=== PATIENT | female | born 1940 | race Two or more races ===

== ENCOUNTER 2019-12-06 10:54 | Inpatient (IN) | payer MEDICARE ==
[2019-12-06] VITALS (19 sets, daily range): BP systolic 93–155; BP diastolic 44–64
[~2019-12-06] VITALS: Ht 152.4 cm; Wt 73.5 kg
[2019-12-06 11:26] LABS: Basophils # (auto) 0.1 10 ^3/uL (0-0.2); Basophils % (auto) 0.5 % (0.0-2.0); Eosinophils # (auto) 0 10 ^3/uL (0-0.8); Hematocrit 33.8 % (36.0-46.0); Hemoglobin 10.9 g/dL (12.2-16.2); Lymphocytes # (auto) 0.7 10 ^3/uL (0.4-5.4); Lymphocytes % (auto) 4.8 % (10.0-50.0); Mean Corpuscular Hgb Conc. 32.2 g/dL (32.0-36.0); Monocytes # (auto) 0.9 10 ^3/uL (0-1.3); Neutrophils # (auto) 12.7 10 ^3/uL (1.6-8.6); Neutrophils % (auto) 88.7 % (37.0-80.0); Nucleated Red Blood Cells % 0.1 %; Platelet Count (auto) 388 10^3/uL (140-450); Red Blood Cells 3.75 10^6/uL (4.0-5.20); Red Cell Distribution Width 15.8 % (11.8-14.3); White Blood Cell 14.3 10^3/uL (4.4-10.8)
[2019-12-06] MEDS ORDERED: SODIUM CHLORIDE 0.9% 1,000 ML IVB ONE (11:38)
[2019-12-06 11:42] LABS: INR 1.15 (0.9-1.15); Partial Thromboplastin Time 26.7 sec (23.64-32.05)
[2019-12-06 11:43] LABS: Albumin 2.7 g/dL (3.4-5.0); Anion Gap 10 (5-15); Blood Urea Nitrogen 24 mg/dL (7-18); Calcium 9.2 mg/dL (8.5-10.1); Carbon Dioxide 21 mmol/L (21-32); Chloride 109 mmol/L (98-107); Glucose 118 mg/dL (74-106); Magnesium 2.3 mg/dL (1.6-2.6); Potassium 3.8 mmol/L (3.5-5.1); Sodium 140 mmol/L (136-145)
[2019-12-06 11:47] LABS: Lactic Acid w/Reflex 2.8 mmol/L (0.4-2.0)
[2019-12-06 11:48] LABS: Alanine Aminotransferase 25 U/L (13-56); Alkaline Phosphatase 155 U/L (45-117); Aspartate Aminotransferase 70 U/L (15-37); BUN/Creatinine Ratio 25.8; Bilirubin, Total 0.7 mg/dL (0.2-1.0); GFR African American 75 mL/min; GFR Non-African American 62 mL/min; Total Protein 7.2 g/dL (6.4-8.2)
[2019-12-06] MEDS ORDERED: cefTRIAXone 1GM/50ML D5W 50 ML IV ONE (12:15)
[2019-12-06] MEDS ORDERED: VANCOMYCIN PER PHARMACY 0 MG IV SCH (14:45)
[2019-12-06] MEDS ORDERED: ACETAMINOPHEN 500 MG TAB PO PRN ×2 (14:45→15:15)
[2019-12-06] MEDS ORDERED: NITROGLYCERIN 0.4 MG SL TAB SL PRN (14:45)
[2019-12-06 15:09] LABS: Magnesium 2.2 mg/dL (1.6-2.6)
[2019-12-06] MEDS ORDERED: MORPHINE SULF INJ 2 MG/ML SYRINGE 1ML IV PRN (15:15)
[2019-12-06] MEDS ORDERED: MORPHINE SULF INJ 2 MG/ML SYRINGE 1ML IM ONE (15:15)
[2019-12-06] MEDS ORDERED: ZINC SULFATE 220mg CAP or TAB PO SCH (15:17)
[2019-12-06] MEDS: ASCORBIC ACID 1,000 MG TAB PO SCH (15:42)
[2019-12-06] MEDS: CHOLECALCIFEROL (VITD3) 1,000UNIT=25mCg TAB PO SCH (15:42)
[2019-12-06] MEDS: HYDROcodone-ACET 5/325MG TAB PO PRN ×2 (15:44→21:45)
[2019-12-06] MEDS: ENOXAPARIN SOD 40 MG/0.4 ML SYRINGE SC SCH (15:44)
[2019-12-06] MEDS: ONDANSETRON HCL 4 MG/2 ML VIAL IV PRN (15:44)
[2019-12-06] MEDS ORDERED: MORPHINE SULF INJ 2 MG/ML SYRINGE 1ML IV ONE (15:45)
[2019-12-06] MEDS ORDERED: VANCOMYCIN 1GM/250ML 250 ML IV SCH (16:00)
[2019-12-06] MEDS: VANCOMYCIN 1GM/250ML 250 ML IV SCH (16:33)
[2019-12-06] MEDS ORDERED: FUROSEMIDE 40 MG/4 ML VIAL IV ONE (17:15)
[2019-12-06] MEDS: PIPERACILLIN-TAZOB 3.375GM 100 ML IV SCH ×2 (18:25→23:56)
[2019-12-06 18:49] LABS: Urine Bacteria NONE SEEN /hpf (None Seen); Urine Blood Negative /uL (Negative); Urine Hyaline Cast MOD /lpf (0 - 2); Urine Mucus MODERATE (None Seen); Urine Specific Gravity 1.018 (1.001-1.035); Urine WBC 37 /hpf (0 - 5)
--- NOTE | 2019-12-06 20:00 | NUR ---
Received patient via gurney; RT at bedside to place patient on Hi Jean-Claude 40 LPM, fio2 90%; pulse ox 93-94% with SOB noticed at rest. Patient is otherwise hemodynamically stable and A/O x 4 with no complaints of pain. Dr. Caceres at bedside to evaluate, new orders placed. Patient refusing ceballos catheter placement at this time; this RN explained to patient that due to her high oxygen requirements and SOB, we will not be getting her OOB; she verbalized understanding. Call light within reach, continue care.
--- NOTE | 2019-12-06 21:22 | NUR ---
Patient mouth breathing, pulse ox reading 85-87%; encouraged deep breaths through nose and pulse ox increased to 88%. Increased fio2 to 100%, RT aware.
[2019-12-06] MEDS ORDERED: ALBUTEROL SULF 2.5 MG/0.5ML(0.5%) NEB SOLN NEB SCH (22:00)
[2019-12-06] MEDS ORDERED: ALBUTEROL SULF HFA 90MCG INH 200DOSE IN SCH ×2 (22:00)
[2019-12-06] MEDS ORDERED: methylPREDNISolone SOD SUCC 40 MG/ML VL IV SCH (22:00)
[2019-12-06] MEDS: IPRATROPIUM BROM 0.5 MG/2.5ML INH SOL NEB SCH (22:04)
[2019-12-06] MEDS: ALBUTEROL SULF 2.5 MG/0.5ML(0.5%) NEB SOLN NEB SCH (22:07)
[2019-12-06] MEDS ORDERED: IBUP600T27 PO (22:26)
[2019-12-06] MEDS ORDERED: HYDR-4833 PO (22:26)
--- NOTE | 2019-12-06 22:56 | NUR ---
Spoke with lab, states they will place order for "legionella and strep pneumo antigen in urine" per Dr. Caceres since this RN unable to do it from my end.
[2019-12-07] VITALS (47 sets, daily range): BP systolic 78–119; BP diastolic 42–59
--- NOTE | 2019-12-07 00:44 | NUR ---
Patient requesting bedpan to void but states "nothing will come out". Inserted 16F Currie catheter using sterile technique per orders and upon patient request, 1750 ml light sabine urine drained.
[2019-12-07] MEDS: ALBUTEROL SULF 2.5 MG/0.5ML(0.5%) NEB SOLN NEB SCH ×6 (02:09→22:19)
[2019-12-07] MEDS: IPRATROPIUM BROM 0.5 MG/2.5ML INH SOL NEB SCH ×6 (02:10→22:19)
[2019-12-07 03:53] LABS: Basophils # (auto) 0.1 10 ^3/uL (0-0.2); Basophils % (auto) 0.4 % (0.0-2.0); Eosinophils # (auto) 0.1 10 ^3/uL (0-0.8); Eosinophils % (auto) 0.8 % (0.0-7.0); Hematocrit 29.1 % (36.0-46.0); Hemoglobin 9.5 g/dL (12.2-16.2); Lymphocytes # (auto) 1.1 10 ^3/uL (0.4-5.4); Lymphocytes % (auto) 7.7 % (10.0-50.0); Mean Corpuscular Hemoglobin 29.7 pg (28.0-32.0); Mean Corpuscular Hgb Conc. 32.8 g/dL (32.0-36.0); Mean Corpuscular Volume 90.6 fL (80.0-100.0); Monocytes % (auto) 7.2 % (0.0-12.0); Neutrophils # (auto) 11.5 10 ^3/uL (1.6-8.6); Neutrophils % (auto) 83.9 % (37.0-80.0); Platelet Count (auto) 325 10^3/uL (140-450); Red Blood Cells 3.21 10^6/uL (4.0-5.20); Red Cell Distribution Width 15.4 % (11.8-14.3); White Blood Cell 13.8 10^3/uL (4.4-10.8)
[2019-12-07 04:11] LABS: Albumin 2.2 g/dL (3.4-5.0); Calcium 8.2 mg/dL (8.5-10.1); Potassium 3.7 mmol/L (3.5-5.1)
[2019-12-07 04:14] LABS: BUN/Creatinine Ratio 22.5; Bilirubin, Total 0.6 mg/dL (0.2-1.0); Total Protein 6.1 g/dL (6.4-8.2)
[2019-12-07] MEDS: PIPERACILLIN-TAZOB 3.375GM 100 ML IV SCH ×3 (05:57→18:09)
--- NOTE | 2019-12-07 06:04 | NUR ---
Patient continues to rest on Hi Flow NC at 40 LPM, 95% Fio2; pulse ox 96-97%.
--- NOTE | 2019-12-07 07:45 | NUR ---
INITIAL CONTACT Report received from Danielle WU, care assumed. Patient is alert and oriented. Patient able to reposition self in bed with minimal assistance. Patient denies chest pain or dizziness at this time. Afebrile. Pulses palpable radial and pedal bilaterally. No edema present. Heart rate 90's sinus rhythm. Lungs clear but diminished anteriorly, on high flow nasal cannula 40 LPM at 85%FIO2. Denies shortness of breath, but does breath shallow. SOB present with any exertion. Currie catheter present, patent, and secured below bladder. Skin intact. Non-slip socks placed on patient. Patient instructed to call for assistance, pt verbalized understanding. Bed locked in lowest position, call light within reach. Will continue to monitor.
[2019-12-07] MEDS: HYDROcodone-ACET 5/325MG TAB PO PRN ×3 (08:10→20:48)
--- NOTE | 2019-12-07 08:10 | NUR ---
PAIN Patient c/o left lower back pain 10/22. Patient suffers from chronic back pain/arthritis. PRN pain medication given.
--- NOTE | 2019-12-07 08:45 | NUR ---
FAMILY Spoke with patient son Patrice on the phone. Updated on status and plan of care.
[2019-12-07] MEDS: ASCORBIC ACID 1,000 MG TAB PO SCH (09:46)
[2019-12-07] MEDS: CHOLECALCIFEROL (VITD3) 1,000UNIT=25mCg TAB PO SCH (09:46)
[2019-12-07] MEDS: ENOXAPARIN SOD 40 MG/0.4 ML SYRINGE SC SCH (09:46)
--- NOTE | 2019-12-07 12:00 | NUR ---
MD VISIT at bedside assessing patient. MD reviewing labs and imagining. Orders received.
[2019-12-07] MEDS ORDERED: FUROSEMIDE 20 MG/2 ML VIAL IV ONE (12:15)
--- NOTE | 2019-12-07 13:20 | NUR ---
DESATURATION Patient c/o lower back pain. Pain medication not due at this time. Patient repositioned in bed. Oxygen saturation 80%. New pulse ox placed, RT notified. RT increased FIo2 95%. Oxygen saturation 91%. Patient does not have increase in work of breathing. Will continue to monitor. Breathing treatment due soon. RT to return to bedside.
--- NOTE | 2019-12-07 13:53 | NUR ---
MD VISIT at bedside. reviewing medical chart.
--- NOTE | 2019-12-07 14:27 | NUR ---
ECHO special effects technician at bedside
--- NOTE | 2019-12-07 14:37 | NUR ---
PAIN Patient c/o left lower back pain 11/21. Patient suffers from chronic back pain/arthritis. PRN pain medication given.
[2019-12-07] MEDS: VANCOMYCIN 1GM/250ML 250 ML IV SCH (16:00)
--- NOTE | 2019-12-07 16:53 | NUR ---
CARES Patient positioned on edge of bed, dangling legs. Patient performed self care. Partial linen change complete as well as repositioning in bed. Patient tolerated activity fair. No desaturation noted during activity. Bed locked in lowest position, call light within reach.
--- NOTE | 2019-12-07 18:12 | NUR ---
FAMILY Spoke with patient son Patrice on the phone. Updated on status and plan of care. Son speaking with patient on the phone.
--- NOTE | 2019-12-07 18:13 | NUR ---
Respiratory note: RECEIVED PT ON HFNC UNIT. UNIT CONNECTED TO RED OUTLET AND O2 SOURCE. ALARMS ARE SET AND AUDIBLE AMBU BAG AND MASK AT BEDSIDE. BS ARE DIMINISHED CLEAR T/O. PT IS NOTED TO GET INCREASED WOB WHEN HOLDING A CONVERSATION. NO CHANGES MADE AT THIS TIME. MED NEB TX GIVEN VIA MASK. PT TOLERATED WELL AND WITHOUT ADVERSE REACTION NOTED. WILL CONTINUE TO MONITOR. RT NAME AND PAGER ASSIGNMENT WRITTEN ON PTS ROOM BOARD.
--- NOTE | 2019-12-07 19:02 | NUR ---
REPORT Report given to Brigette WU care endorsed.
[2019-12-07] MEDS: MORPHINE SULF INJ 2 MG/ML SYRINGE 1ML IV PRN (19:49)
[2019-12-08] VITALS (62 sets, daily range): BP systolic 90–155; BP diastolic 41–91
[2019-12-08] MEDS: PIPERACILLIN-TAZOB 3.375GM 100 ML IV SCH ×4 (00:18→21:34)
--- NOTE | 2019-12-08 01:50 | NUR ---
Respiratory note: ABG DRAWN MD Pearl SALCEDO AWARE. PT DOES NOT WANT INTUBATION AT THIS TIME. WILL CONTINUE TO MONITOR.
[2019-12-08] MEDS: ALBUTEROL SULF 2.5 MG/0.5ML(0.5%) NEB SOLN NEB SCH ×6 (02:26→22:32)
[2019-12-08] MEDS: IPRATROPIUM BROM 0.5 MG/2.5ML INH SOL NEB SCH ×6 (02:26→22:33)
--- NOTE | 2019-12-08 02:26 | NUR ---
Respiratory note: AT BEDSIDE FOR ROUTINE HFNC CHECK. MED NEB TX GIVEN INLINE VIA AEROGEN NO ADVERSE REACTION NOTED. PT APPEARS COMFORTABLE. BS ARE DIMINISHED CLEAR T/O .
[2019-12-08 04:25] LABS: Basophils # (auto) 0.1 10 ^3/uL (0-0.2); Basophils % (auto) 0.4 % (0.0-2.0); Eosinophils # (auto) 0.3 10 ^3/uL (0-0.8); Eosinophils % (auto) 2.8 % (0.0-7.0); Hematocrit 29.1 % (36.0-46.0); Hemoglobin 9.8 g/dL (12.2-16.2); Lymphocytes # (auto) 0.8 10 ^3/uL (0.4-5.4); Lymphocytes % (auto) 6.6 % (10.0-50.0); Mean Corpuscular Hgb Conc. 33.5 g/dL (32.0-36.0); Mean Corpuscular Volume 89.5 fL (80.0-100.0); Monocytes # (auto) 0.8 10 ^3/uL (0-1.3); Monocytes % (auto) 6.7 % (0.0-12.0); Neutrophils % (auto) 83.5 % (37.0-80.0); Platelet Count (auto) 344 10^3/uL (140-450); Red Blood Cells 3.26 10^6/uL (4.0-5.20); Red Cell Distribution Width 15.5 % (11.8-14.3); White Blood Cell 11.9 10^3/uL (4.4-10.8)
[2019-12-08 05:01] LABS: Calcium 8.3 mg/dL (8.5-10.1); Potassium 3.2 mmol/L (3.5-5.1)
[2019-12-08 05:04] LABS: BUN/Creatinine Ratio 28.6
[2019-12-08] MEDS ORDERED: POTASSIUM CHL 20 Meq TABLET PO ONE ×2 (06:00→12:00)
--- NOTE | 2019-12-08 07:15 | NUR ---
Assumed care of patient - after receiving report from Jonh WU.
--- NOTE | 2019-12-08 07:50 | NUR ---
Patient refusing po potassium - MD states IV can be ordered - placed IV order.
[2019-12-08] MEDS: ENOXAPARIN SOD 40 MG/0.4 ML SYRINGE SC SCH (08:04)
[2019-12-08] MEDS: HYDROcodone-ACET 5/325MG TAB PO PRN (08:04)
[2019-12-08] MEDS: POTASSIUM CHL 20MEQ/100ML 100 ML IV SCH ×2 (08:08→10:18)
--- NOTE | 2019-12-08 08:30 | NUR ---
Respiratory: See respiratory assessment - patient de-sats with minimal exertion from 94% to 87%. All ADL's spaced apart to preserve O2 levels.
--- NOTE | 2019-12-08 09:35 | NUR ---
Patient's son phones - given update on patient's condition - verbalized understanding.
[2019-12-08] MEDS ORDERED: FUROSEMIDE 20 MG/2 ML VIAL IV ONE (12:00)
[2019-12-08] MEDS ORDERED: AZITHROMYCIN 500MG/ 250ML 250 ML IV ONE (12:00)
[2019-12-08] MEDS ORDERED: PANTOPRAZOLE 40 MG TAB PO ONE (12:00)
--- NOTE | 2019-12-08 12:00 | NUR ---
Dr Gaitan visits and examines patient - orders received.
[2019-12-08] MEDS ORDERED: POTASSIUM EFFERVESENT TAB 25 MEQ PO ONE (13:00)
[2019-12-08] MEDS: Ensure HIGH Protein Chocolate 8oz Bottle PO SCH ×2 (13:34→16:43)
[2019-12-08] MEDS ORDERED: SUCCINYLCHOLINE CHLORIDE 20 MG/ML 10ML VIAL IV ONE (14:33)
[2019-12-08] MEDS ORDERED: ROCURONIUM 10MG/ML 10ML VIAL IV ONE ×2 (14:33→17:03)
--- NOTE | 2019-12-08 14:35 | NUR ---
Dr Rowe visits and examines patient - orders received to intubate patient.
[2019-12-08] MEDS ORDERED: ETOMIDATE (2MG/ML) 20ML VIAL IV ONE (14:53)
--- NOTE | 2019-12-08 15:00 | NUR ---
Patient informed per Dr Rowe of need for intubation - patient agreeable but requests to speak with her son - commercial lines underwriter gave patient portable phone - patient able to speak to son. Environment Artist and Dr Rowe spoke to son - explained need for intubation - son verbalizes understanding. Environment Artist obtained consent for insertion of central intravenous line placement from patient.
[2019-12-08] MEDS: PROPOFOL 100 ML IV SCH ×2 (15:30→23:22)
[2019-12-08] MEDS: MIDAZOLAM DRIP 50 mg/50mL 50 ML IV SCH ×2 (15:30→21:36)
[2019-12-08] MEDS: fentaNYL Drip 2500mCg/250mlNS 250 ML IV SCH (16:00)
--- NOTE | 2019-12-08 16:15 | NUR ---
Patient intubated per Dr Rowe at bedside with size 8.0 ETT - 24 @ lip - see assessment for vent settings. Diprivan and Versed gtts. started. Top Installer and Dr Rowe spoke to patient's son re: intubation and bronchoscopy scheduled for tomorrow - consent obtained.
[2019-12-08] MEDS ORDERED: POTASSIUM CHL 20MEQ/100ML 100 ML IV ONE (16:45)
--- NOTE | 2019-12-08 16:45 | NUR ---
Spoke to Treva in OR.- scheduled bronchoscopy for tomorrow @ [id number]
--- NOTE | 2019-12-08 17:00 | NUR ---
Patient reaching for ETT - bilat hand mitts applied to patient and sedation adjusted - see IV spread sheet.
[2019-12-08] MEDS: VANCOMYCIN 1GM/250ML 250 ML IV SCH (19:00)
--- NOTE | 2019-12-08 20:00 | NUR ---
OPENING Patient is sedated and ventilated, sp02 100%, no sign of sob, respiratory distress or agitation, pt resting comfortably. Mittens on bilaterally. Currie draining down the gravity, light yellow urine. BP in low 100's, will titrate propofol and fentanyl according to protocol. Bed in the lowers position, side rail are up x4, bed alarm is on, pt is within the view from the nursing station. Skin is intact with and warm to touch, Optifoam applied to sacral area as preventative measure. Pt is on respiratory/droplet precaution, r/o covid 19. Will monitor pt every 15 min and as needed. See iv spreadsheet for drips and interventions for full assessment.
[2019-12-09] VITALS (106 sets, daily range): BP systolic 87–126; BP diastolic 44–67
--- NOTE | 2019-12-09 00:47 | NUR ---
REMOVED JEWELRY OFF PT FOR TOMORROWS PROCEDURE Removed two rings and two earrings and placed them into biohazard bag with patient's label. Patients mouth is free of dentures. Found one denture in wash basin, placed it into the biohazard bag with pt's label.
[2019-12-09] MEDS: ALBUTEROL SULF 2.5 MG/0.5ML(0.5%) NEB SOLN NEB SCH ×6 (02:23→22:21)
[2019-12-09] MEDS: IPRATROPIUM BROM 0.5 MG/2.5ML INH SOL NEB SCH ×6 (02:23→22:21)
[2019-12-09 04:34] LABS: Basophils # (auto) 0 10 ^3/uL (0-0.2); Basophils % (auto) 0.4 % (0.0-2.0); Eosinophils # (auto) 0.3 10 ^3/uL (0-0.8); Eosinophils % (auto) 2.6 % (0.0-7.0); Hematocrit 27.8 % (36.0-46.0); Hemoglobin 9.2 g/dL (12.2-16.2); Lymphocytes # (auto) 0.8 10 ^3/uL (0.4-5.4); Lymphocytes % (auto) 6.9 % (10.0-50.0); Mean Corpuscular Hemoglobin 29.7 pg (28.0-32.0); Mean Corpuscular Hgb Conc. 33.3 g/dL (32.0-36.0); Mean Corpuscular Volume 89.3 fL (80.0-100.0); Monocytes # (auto) 0.6 10 ^3/uL (0-1.3); Monocytes % (auto) 5.4 % (0.0-12.0); Neutrophils # (auto) 9.6 10 ^3/uL (1.6-8.6); Neutrophils % (auto) 84.7 % (37.0-80.0); Nucleated Red Blood Cells % 0.1 %; Platelet Count (auto) 332 10^3/uL (140-450); Red Blood Cells 3.11 10^6/uL (4.0-5.20); Red Cell Distribution Width 15.3 % (11.8-14.3); White Blood Cell 11.4 10^3/uL (4.4-10.8)
[2019-12-09 04:48] LABS: BUN/Creatinine Ratio 28.3; Calcium 8.2 mg/dL (8.5-10.1)
--- NOTE | 2019-12-09 05:32 | NUR ---
Paged hospitalist regarding low K (3.0)
[2019-12-09] MEDS: PIPERACILLIN-TAZOB 3.375GM 100 ML IV SCH ×3 (05:34→21:31)
[2019-12-09] MEDS: MIDAZOLAM DRIP 50 mg/50mL 50 ML IV SCH (05:34)
--- NOTE | 2019-12-09 06:46 | NUR ---
HOSPITALIST RETURNED CALL RECEIVED NEW ORDER FOR LOW POTASSIUM
[2019-12-09] MEDS ORDERED: POTASSIUM CHL 20MEQ/100ML 100 ML IV ONE ×3 (07:46→12:03)
[2019-12-09] MEDS: PANTOPRAZOLE 40 MG/10 ML VIAL INJ IV SCH (07:57)
[2019-12-09] MEDS: AZITHROMYCIN 500MG/ 250ML 250 ML IV SCH (07:58)
[2019-12-09] MEDS ORDERED: BENZOCAINE (DENTAL) 20 % SPRAY 60ML MT ONE (09:01)
[2019-12-09] MEDS ORDERED: LIDOCAINE 2%HCL (LOCAL ANESTH.) INJ 20ML MDV ONE (09:01)
[2019-12-09] MEDS ORDERED: SODIUM CHLORIDE LOCK 0 ML ONE (09:01)
[2019-12-09] MEDS ORDERED: EPINEPHrine HCL 1 MG/1 ML AMP ONE (09:02)
[2019-12-09] MEDS ORDERED: LIDOCAINE HCL 2% TOP JELLY 5ML TOP ONE (09:02)
[2019-12-09] MEDS ORDERED: MIDAZOLAM HCL 5 MG/ML-1ML VIAL ONE (09:03)
[2019-12-09] MEDS ORDERED: fentaNYL CITRATE 100 MCG/2 ML VL ONE (09:03)
--- NOTE | 2019-12-09 09:30 | NUR ---
Gas Operations Analyst phoned patient's son - obtained consent for sedation for bronchoscopy today.
[2019-12-09] MEDS ORDERED: PANTOPRAZOLE 40 MG TAB PO SCH (10:00)
[2019-12-09] MEDS: ENOXAPARIN SOD 40 MG/0.4 ML SYRINGE SC SCH (10:00)
--- NOTE | 2019-12-09 12:22 | NUR ---
Nutrition Assessment Notes please see attached link for complete assessment Est Energy needs ABW 57 [id number] kcals (20-23 kcal/kgBW), Est Protein needs: 57-68 gms/day (1.0-1.2 gm/kgBW r/t severe hypoalb). Will continue to monitor and reassess prn. Addendum: 12/09/19 at [address] Amended: Links added.
[2019-12-09] MEDS: PROPOFOL 100 ML IV SCH (12:24)
[2019-12-09 12:36] LABS: INR 1.29 (0.9-1.15); Partial Thromboplastin Time 31.9 sec (23.64-32.05)
--- NOTE | 2019-12-09 13:20 | NUR ---
Dr Herron visits and examines patient - orders received.
[2019-12-09] MEDS: POTASSIUM CHL 20MEQ/100ML 100 ML IV SCH ×2 (14:15→16:15)
[2019-12-09] MEDS ORDERED: NOREPINEPHRINE 8 MG/250ML KIT 250 ML IV ONE (15:21)
[2019-12-09] MEDS: NOREPINEPHRINE 8 MG/250ML KIT 250 ML IV SCH (15:33)
--- NOTE | 2019-12-09 16:32 | NUR ---
assessment Patient is a 79 year old female who is on a vent. Per patients conner Ibrahim prior to admission patient lived home with him and functioned with assistance. patients PCP is Dr Gutiérrez. Patient has no DME. Per Patrice patient was having shortness of breath and he drove her to ER and patient was admitted. I informed Patrice patient will be evaluated for DME and oxygen needs after extubation and prior to discharge. Patrice verbalized understanding. Addendum: 12/09/19 at 1634 by Emmy MAC Amended: Links added.
[2019-12-09] MEDS: fentaNYL Drip 2500mCg/250mlNS 250 ML IV SCH (17:11)
--- NOTE | 2019-12-09 17:17 | NUR ---
Dr Rowe notified of negative Covid result - states to re-schedule bronchoscopy for AM-switch house operator paged.
--- NOTE | 2019-12-09 17:23 | NUR ---
Maggie Ore Buyer notified of Dr Rowe's request for bronchoscopy at 1000 12/09 - will add to schedule.
[2019-12-09] MEDS ORDERED: VANCOMYCIN 1GM/250ML 250 ML IV SCH (18:00)
--- NOTE | 2019-12-09 18:00 | NUR ---
WOUND CARE NOTE: Wound care in to see patient due intubation status, putting patient to high risk for skin breakdown. Patient is 79 years old female with admitting diagnosis of Acute Renal failure, Recurrent Falls. Patient is resting in ICU bed in Rm. 108. Patient is intubated, sedated and mechanically ventilated. Patient appears to be in no pain using Pat Bellamy Faces Pain Scale. Skin assessment done with the assistance of patient's nurse, BRYCE Lopez. No open wound other than intact circular ecchymosis to patient's Rt and Lt forearm, area is clean and dry, left open to air. No pressure injury noted. Staff initiated skin protection measures with BID/PRN cleaning and application of Barrier to sacral, buttocks with protective Opti foam sacral dressing to sacrum. Patient tolerated well, repositioned for comfort facing her Rt side, redistributed pressure points with pillows. BRYCE Lopez at bedside. RECOMMENDATION: Nursing to continue with BID/PRN cleaning and application of Barrier cream to sacral, buttocks as preventative, frequent turning and repositioning schedule as condition permits, redistribute pressure points with pillows, elevate heels on pillows, continue monitoring by wound care while patient is mechanically ventilated.
[2019-12-09] MEDS: VANCOMYCIN 1GM/250ML 250 ML IV SCH (18:15)
--- NOTE | 2019-12-09 19:00 | NUR ---
Opening shift note: Primary RN received report on patient. Pt intubated, ETT 8.0/ 24cm@LL, Vent settings: AC 18, TV 450, FIO2 40%, PEEP 12 O2 SAT 95%, bilateral lung sounds clear and diminished. Central line Right IJ triple lumen, infusing Propofol @ 10, Fentanyl @ 50, Versed @ 6 and Levo @ 2. OG tube clamped and checked. Currie catheter draining via gravity with yellow urine. Safety precautions in place. Will continue to monitor.
[2019-12-09] MEDS: Jevity 1.2 Cal/Fiber 1 Liter GT SCH (20:00)
--- NOTE | 2019-12-09 20:00 | NUR ---
Rectal probe: RN placed rectal probe in patient to closely monitor temperature d/t patient running elevated temps in the high 99's. Patient tolerated nursing intervention well with no s/s of discomfort or distress.
--- NOTE | 2019-12-09 22:00 | NUR ---
Opti-foam changed during repositioning of the patient.
[2019-12-10] VITALS (106 sets, daily range): BP systolic 95–135; BP diastolic 43–65
--- NOTE | 2019-12-10 | NUR ---
Feeding held: Feeding held d/t patient scheduled for procedure this morning at 1000.
[2019-12-10] MEDS: MIDAZOLAM DRIP 50 mg/50mL 50 ML IV SCH ×2 (00:23→14:06)
[2019-12-10] MEDS: PROPOFOL 100 ML IV SCH ×2 (02:06→15:05)
--- NOTE | 2019-12-10 02:30 | NUR ---
IV removal d/t infiltration: IV to Right AC DC'd with sterile technique, catheter fully intact. Pressure dressing applied to site. Patient tolerated procedure well.
[2019-12-10] MEDS: IPRATROPIUM BROM 0.5 MG/2.5ML INH SOL NEB SCH ×6 (02:38→22:14)
[2019-12-10] MEDS: ALBUTEROL SULF 2.5 MG/0.5ML(0.5%) NEB SOLN NEB SCH ×6 (02:38→22:14)
--- NOTE | 2019-12-10 02:47 | NUR ---
Bed bath: Patient given bed bath and linen change was provided. Patient tolerated nursing interventions well with no s/s of discomfort or distress.
[2019-12-10 03:44] LABS: Basophils # (auto) 0.1 10 ^3/uL (0-0.2); Basophils % (auto) 1.1 % (0.0-2.0); Eosinophils # (auto) 0.8 10 ^3/uL (0-0.8); Eosinophils % (auto) 6.6 % (0.0-7.0); Hematocrit 28.1 % (36.0-46.0); Hemoglobin 9.2 g/dL (12.2-16.2); Lymphocytes # (auto) 1.2 10 ^3/uL (0.4-5.4); Lymphocytes % (auto) 10.1 % (10.0-50.0); Mean Corpuscular Hemoglobin 29.1 pg (28.0-32.0); Mean Corpuscular Hgb Conc. 32.6 g/dL (32.0-36.0); Mean Corpuscular Volume 89.3 fL (80.0-100.0); Monocytes # (auto) 0.8 10 ^3/uL (0-1.3); Monocytes % (auto) 7.2 % (0.0-12.0); Neutrophils # (auto) 8.7 10 ^3/uL (1.6-8.6); Platelet Count (auto) 329 10^3/uL (140-450); Red Blood Cells 3.14 10^6/uL (4.0-5.20); Red Cell Distribution Width 15.3 % (11.8-14.3); White Blood Cell 11.6 10^3/uL (4.4-10.8)
[2019-12-10 04:04] LABS: Albumin 1.6 g/dL (3.4-5.0); Calcium 8.3 mg/dL (8.5-10.1); Magnesium 2.2 mg/dL (1.6-2.6); Potassium 3.6 mmol/L (3.5-5.1)
[2019-12-10 04:09] LABS: BUN/Creatinine Ratio 25.9; Total Protein 5.9 g/dL (6.4-8.2)
[2019-12-10] MEDS: PIPERACILLIN-TAZOB 3.375GM 100 ML IV SCH ×3 (05:33→22:06)
[2019-12-10] MEDS: VANCOMYCIN 1GM/250ML 250 ML IV SCH ×2 (06:15→18:30)
--- NOTE | 2019-12-10 08:00 | NUR ---
Assessment completed - see flow sheet. Patient continues on ventilator at charted settings and on Fentanyl, Levophed, Versed and Diprivan gtts. Repositioned with oral care given.
[2019-12-10] MEDS ORDERED: EPINEPHrine HCL 1 MG/1 ML AMP ONE (09:09)
[2019-12-10] MEDS ORDERED: LIDOCAINE 2%HCL (LOCAL ANESTH.) INJ 20ML MDV ONE (09:10)
[2019-12-10] MEDS ORDERED: SODIUM CHLORIDE LOCK 10 ML ONE (09:10)
[2019-12-10] MEDS ORDERED: LIDOCAINE HCL 2% TOP JELLY 5ML TOP ONE (09:10)
[2019-12-10] MEDS ORDERED: GLYCOPYRROLATE 0.2 MG/ML 1ML VIAL ONE (09:25)
[2019-12-10] MEDS: PANTOPRAZOLE 40 MG/10 ML VIAL INJ IV SCH (09:38)
[2019-12-10] MEDS: AZITHROMYCIN 500MG/ 250ML 250 ML IV SCH (09:38)
[2019-12-10] MEDS: ENOXAPARIN SOD 40 MG/0.4 ML SYRINGE SC SCH (09:38)
[2019-12-10] MEDS ORDERED: ACETYLCYSTEINE 10 %(100MG/ML) SOL 4ML NEB ONE (09:45)
--- NOTE | 2019-12-10 11:45 | NUR ---
Bronchoscopy Completed at bedside per Dr Rowe - patient tolerated well - washings sent to lab per OR for ordered testing including fungal and viral cultures.
--- NOTE | 2019-12-10 12:00 | NUR ---
Dr tellez phoned patient's son Patrice and informed him of bronchoscopy findings - verbalized understanding.
[2019-12-10] MEDS ORDERED: FUROSEMIDE 20 MG/2 ML VIAL ONE (12:05)
[2019-12-10] MEDS ORDERED: FUROSEMIDE 20 MG/2 ML VIAL IV ONE (12:15)
--- NOTE | 2019-12-10 15:00 | NUR ---
Dr Gaitan visits and examines patient - orders received.
[2019-12-10] MEDS: fentaNYL Drip 2500mCg/250mlNS 250 ML IV SCH (15:11)
[2019-12-10] MEDS: NOREPINEPHRINE 8 MG/250ML KIT 250 ML IV SCH (15:18)
--- NOTE | 2019-12-10 16:19 | NUR ---
Repair Specialist phoned patient's son Patrice - gave update - Dr Gaitan gave permission for patient's son to visit x 1 for short time due to patient placed on ventilator due to severe pneumonia, guarded condition and unknown prognosis. Patient's son states he would like to come visit on Saturday so he can make arrangements to secure caregiver for his handicapped sister for whom he care for at home.
--- NOTE | 2019-12-10 18:00 | NUR ---
Temp 100.6 Rectally -fan on patient and ice packs applied.
--- NOTE | 2019-12-10 19:20 | NUR ---
Opening notes Assumed care, on vent and sedation with propofol, versed and fentanyl, levophed @ 2 mcg/min, drips infusing @ right IJ central line, unable to open eyes spontaneously but withdraws to pain, clear breath sounds noted with minimal ET secretions, ceballos catheter draining to a clear light sabine urine, intact skin noted except for some bruises in upper extremities. Bed in lowest position with side rails up, bed alarm on. Will continue care and monitoring.
--- NOTE | 2019-12-10 20:00 | NUR ---
Suctioned ET and oral secretions prn.
--- NOTE | 2019-12-10 21:15 | NUR ---
TF No residual via tube feeding, jevity feeding @ 30ml/hr.
[2019-12-11] VITALS (102 sets, daily range): BP systolic 80–150; BP diastolic 35–82
[2019-12-11] MEDS: IPRATROPIUM BROM 0.5 MG/2.5ML INH SOL NEB SCH ×6 (02:20→22:08)
[2019-12-11] MEDS: ALBUTEROL SULF 2.5 MG/0.5ML(0.5%) NEB SOLN NEB SCH ×6 (02:20→22:08)
--- NOTE | 2019-12-11 04:00 | NUR ---
Patient bathe/linen change Patient given complete CHG bath. Skin integrity assessed for any changes. Linens and gown changed. Patient repositioned for comfort.
--- NOTE | 2019-12-11 04:05 | NUR ---
Desaturation noted while turning the pt for linen change and hygiene, sat 82-86%, biting of ET tube also noted, delivered 100% O2, sat increased to 92%
[2019-12-11 04:55] LABS: Basophils # (auto) 0.1 10 ^3/uL (0-0.2); Basophils % (auto) 0.7 % (0.0-2.0); Eosinophils # (auto) 0.7 10 ^3/uL (0-0.8); Eosinophils % (auto) 7.5 % (0.0-7.0); Hematocrit 26.7 % (36.0-46.0); Hemoglobin 8.9 g/dL (12.2-16.2); Lymphocytes # (auto) 0.9 10 ^3/uL (0.4-5.4); Lymphocytes % (auto) 8.9 % (10.0-50.0); Mean Corpuscular Hemoglobin 29.5 pg (28.0-32.0); Mean Corpuscular Hgb Conc. 33.4 g/dL (32.0-36.0); Mean Corpuscular Volume 88.2 fL (80.0-100.0); Monocytes % (auto) 10.3 % (0.0-12.0); Neutrophils # (auto) 7.2 10 ^3/uL (1.6-8.6); Neutrophils % (auto) 72.6 % (37.0-80.0); Nucleated Red Blood Cells % 0.1 %; Platelet Count (auto) 328 10^3/uL (140-450); Red Blood Cells 3.03 10^6/uL (4.0-5.20); Red Cell Distribution Width 15.3 % (11.8-14.3); White Blood Cell 9.9 10^3/uL (4.4-10.8)
--- NOTE | 2019-12-11 05:00 | NUR ---
Off levophed, latest BP 113/56, HR 84, MAP maintained above 65
[2019-12-11 05:25] LABS: Calcium 8.2 mg/dL (8.5-10.1); Potassium 3.1 mmol/L (3.5-5.1)
[2019-12-11 05:30] LABS: BUN/Creatinine Ratio 14.8
[2019-12-11] MEDS: VANCOMYCIN 1GM/250ML 250 ML IV SCH ×2 (05:38→18:30)
[2019-12-11] MEDS: PROPOFOL 100 ML IV SCH ×3 (06:00→23:23)
[2019-12-11] MEDS: PIPERACILLIN-TAZOB 3.375GM 100 ML IV SCH ×3 (06:00→21:55)
--- NOTE | 2019-12-11 06:01 | NUR ---
Off diprivan, still infusing versed @ 2 mg/hr, fentanyl @ 80 mcg/hr, VS, O2 sat stable, pt is resting comfortably
--- NOTE | 2019-12-11 06:35 | NUR ---
Desaturation 82-86%, noted biting on ET tube, delivered 100% O2, suctioned ET tube but obtained very minimal amount of secretions, restarted propofol @ 20 mcg/min. Rt aware
--- NOTE | 2019-12-11 07:45 | NUR ---
ASSESS- PT. LYING IN BED ON VENT SIZE #8.0 ET, 24 AT THE LIP, AC-18, TV-450, PEEP-10, FIO2-30%. LUNGS CLEAR BISHOP. INSPIRATORY AND EXPIRATORY. PT. HAS GAG/COUGH REFLEX. ON PROPOFOL GTT. AT 20 MCG., VERSED GTT. AT 4MG./HR., AND FENTANYL GTT. AT 80 MCG. TLC RT. IJ INTACT. OGT IN PLACE WITH JEVITY AT 30 CC/HR. ABD. SOFT, FLAT. BOWEL SOUNDS ALL FOUR QUADRANTS. F/C TO GRAVITY WITH CLEAR LT. GAURAV URINE. RADIAL PULSES STRONG, PALPABLE BISHOP. DORSALIS PEDAL PULSES NORMAL, PALPABLE BISHOP. NO EDEMA. SCD'S BISHOP. LE. SKIN INTACT. OPTIFOAM TO SACRUM PREVENTATIVE. BRUISES TO ARMS BISHOP. RECTAL PROBE IN PLACE. BISHOP. HAND MITTENS IN PLACE TO PREVENT PULLING OF TUBES. NO MOVEMENT OF EXTREMITIES SEEN AT THIS TIME, PT. DOES NOT FOLLOW ANY COMMANDS.
--- NOTE | 2019-12-11 09:20 | NUR ---
Called/paged Dr. OCHOA called re:. Waiting for call back. Continue care.
[2019-12-11] MEDS: AZITHROMYCIN 500MG/ 250ML 250 ML IV SCH (09:27)
[2019-12-11] MEDS: PANTOPRAZOLE 40 MG/10 ML VIAL INJ IV SCH (09:27)
[2019-12-11] MEDS: ENOXAPARIN SOD 40 MG/0.4 ML SYRINGE SC SCH (09:27)
--- NOTE | 2019-12-11 09:35 | NUR ---
DR. SCHUMACHER Provider/Hospitalist at bedside. GAVE UPDATE ON PT. NEW ORDERS RECEIVED. INFORMED OF K LEVEL OV 3.1 THIS AM. ORDER RECEIVED FOR KCL.
[2019-12-11] MEDS: DexMEDEtomidine 400 MCG in D5W 5% 96 ML IV SCH (09:36)
[2019-12-11] MEDS ORDERED: POTASSIUM EFFERVESENT TAB 25 MEQ GT ONE (09:45)
[2019-12-11] MEDS ORDERED: FUROSEMIDE 40 MG/4 ML VIAL IV ONE (09:45)
--- NOTE | 2019-12-11 10:00 | NUR ---
AUSCULTATED GOOD PLACEMENT WITH OGT. NO EMESIS. NO RESIDUAL. TOLERATING JEVITY AT 30 CC/HR.
[2019-12-11] MEDS: POTASSIUM CHL 20MEQ/100ML 100 ML IV SCH ×2 (10:27→12:27)
[2019-12-11] MEDS: Jevity 1.2 Cal/Fiber 1 Liter GT SCH (10:45)
--- NOTE | 2019-12-11 13:45 | NUR ---
SBP DECREASED TO THE 80'S FEW BP'S IN A ROW. RESTARTED LEVOPHED GTT. AT 2 MCG. VIA TLC RT. IJ. MONITORING BP.
[2019-12-11] MEDS: MIDAZOLAM DRIP 50 mg/50mL 50 ML IV SCH ×2 (14:28→21:56)
[2019-12-11] MEDS: fentaNYL Drip 2500mCg/250mlNS 250 ML IV SCH (14:28)
[2019-12-11] MEDS ORDERED: FLUCONAZOLE 200MG/100ML 100 ML IV ONE (14:30)
[2019-12-11] MEDS ORDERED: Jevity 1.2 Cal/Fiber 1 Liter GT SCH (14:30)
--- NOTE | 2019-12-11 14:30 | NUR ---
DR. OCHOA Provider/Hospitalist at bedside. GAVE UPDATE ON PT. NEW ORDERS RECEIVED.
--- NOTE | 2019-12-11 14:30 | NUR ---
SBP INCREASED TO THE 100'S TO 120'S. MONITORING BP. LEVOPHED GTT. AT 2 MCGS. INFUSING.
--- NOTE | 2019-12-11 14:45 | NUR ---
AUSCULTATED GOOD PLACEMENT WITH OGT. NO EMESIS. RESIDUAL FEW CC'S. INCREASED TF OF JEVITY TO 40 CC/HR. FROM 30 CC/HR. WITH GOAL RATE OF 50 CC/HR. PER MD.
[2019-12-11] MEDS: NOREPINEPHRINE 8 MG/250ML KIT 250 ML IV SCH (15:16)
--- NOTE | 2019-12-11 17:35 | NUR ---
TEMP 99.7 RECTALLY. PLACED ICE PACKS BISHOP. AXILLA. MONITORING TEMP.
--- NOTE | 2019-12-11 23:30 | NUR ---
Opening notes Assumed care, on vent and sedated with propofol, versed and fentanyl, levophed @ 2 mcg/min, drips infusing @ right IJ central line, unable to open eyes spontaneously but withdraws to pain, clear breath sounds noted with minimal ET secretions, ceballos catheter draining to a clear light sabine urine, intact skin noted except for some bruises in upper extremities. Bed in lowest position with side rails up, bed alarm on. Will continue care and monitoring. SCD are on bilaterally. Will titrate of levo according to protocol.
[2019-12-12] VITALS (104 sets, daily range): BP systolic 88–144; BP diastolic 39–64
--- NOTE | 2019-12-12 01:17 | NUR ---
Feeding was increased form 40 to 50cc/hr pt tolerating feeding well, residual 4cc
--- NOTE | 2019-12-12 01:41 | NUR ---
Patient's heart rate decreased below 50 Started pt on dopamine, decreased propofol, oral temp is 98.0 Addendum: 12/12/19 at 0143 by JEET JUAREZ RN RN wrong patient
[2019-12-12] MEDS: ALBUTEROL SULF 2.5 MG/0.5ML(0.5%) NEB SOLN NEB SCH ×6 (02:24→21:46)
[2019-12-12] MEDS: IPRATROPIUM BROM 0.5 MG/2.5ML INH SOL NEB SCH ×6 (02:24→21:46)
[2019-12-12] MEDS: fentaNYL Drip 2500mCg/250mlNS 250 ML IV SCH (03:09)
--- NOTE | 2019-12-12 04:10 | NUR ---
CARES Bed bath provided with partial linen change, new Optifoam applied to sacral area as preventative measure.
[2019-12-12 04:34] LABS: Basophils # (auto) 0.1 10 ^3/uL (0-0.2); Basophils % (auto) 0.6 % (0.0-2.0); Eosinophils # (auto) 0.7 10 ^3/uL (0-0.8); Eosinophils % (auto) 7.6 % (0.0-7.0); Hematocrit 27.2 % (36.0-46.0); Hemoglobin 8.9 g/dL (12.2-16.2); Lymphocytes # (auto) 0.8 10 ^3/uL (0.4-5.4); Lymphocytes % (auto) 8.6 % (10.0-50.0); Mean Corpuscular Hemoglobin 29.2 pg (28.0-32.0); Mean Corpuscular Hgb Conc. 32.8 g/dL (32.0-36.0); Mean Corpuscular Volume 89.1 fL (80.0-100.0); Monocytes # (auto) 0.9 10 ^3/uL (0-1.3); Monocytes % (auto) 9.1 % (0.0-12.0); Neutrophils % (auto) 74.1 % (37.0-80.0); Nucleated Red Blood Cells % 0.2 %; Platelet Count (auto) 337 10^3/uL (140-450); Red Blood Cells 3.05 10^6/uL (4.0-5.20); Red Cell Distribution Width 15.7 % (11.8-14.3); White Blood Cell 9.5 10^3/uL (4.4-10.8)
[2019-12-12 05:01] LABS: Potassium 3.5 mmol/L (3.5-5.1)
[2019-12-12 05:06] LABS: BUN/Creatinine Ratio 13.8; Calcium 8.3 mg/dL (8.5-10.1)
[2019-12-12] MEDS: PROPOFOL 100 ML IV SCH ×2 (05:35→17:15)
[2019-12-12] MEDS: VANCOMYCIN 1GM/250ML 250 ML IV SCH ×2 (05:35→18:00)
--- NOTE | 2019-12-12 06:00 | NUR ---
Stopped feeding at 0600
[2019-12-12] MEDS: PIPERACILLIN-TAZOB 3.375GM 100 ML IV SCH ×3 (06:47→22:02)
[2019-12-12] MEDS: NOREPINEPHRINE 8 MG/250ML KIT 250 ML IV SCH (08:00)
[2019-12-12] MEDS: DexMEDEtomidine 400 MCG in D5W 5% 96 ML IV SCH (09:36)
[2019-12-12] MEDS: ENOXAPARIN SOD 40 MG/0.4 ML SYRINGE SC SCH (10:06)
[2019-12-12] MEDS: PANTOPRAZOLE 40 MG/10 ML VIAL INJ IV SCH (10:06)
[2019-12-12] MEDS: FLUCONAZOLE 200MG/100ML 100 ML IV SCH (10:06)
--- NOTE | 2019-12-12 10:22 | NUR ---
FAMILY PHONE CALL: Received call from patient's son Patrice, updated on patient condition. Informed him that physician will review labs, and CXR to determine if patient is candidate for weaning trial. All questions and concern addressed.
[2019-12-12] MEDS: AZITHROMYCIN 500MG/ 250ML 250 ML IV SCH (11:27)
--- NOTE | 2019-12-12 12:00 | NUR ---
Cooling Measures applied. Patient currently has temp of 99.9 , cooling measures in place.
--- NOTE | 2019-12-12 12:05 | NUR ---
Nutrition Followup Notes Wt: 69.8 kg Pt`s intubated sedated with propofol @ 7.92 ml/hr providing 209 kcals from fats. pt is currently NPO off EN support. Est Energy needs ABW 57 [id number] kcals (20-23 kcal/kgBW), Est Protein needs: 57-68 gms/day (1.0-1.2 gm/kgBW r/t severe hypoalb). Will continue to monitor and reassess prn. LABS: GLU 163 H, CA 8.3 L. GI: no BM reported per RN doc BS: 13 mod risk, PES: Altered nutrition related lab values r/t current chronic medical condition aeb severe hypoalbuminemia Impaired swallowing r/t current medical condition aeb pt`s intubated sedated with order of NPO Comments Will continue to closely monitor pertinent labs, NPO status and skin status prn. Will followup in 2-3 days 1) ) consider alternate nutrition support if pt NPO > 48 hrs. If EN is choice of route consider Jevity 1.2 @ 45 ml/hr per MD approval. 2) advance diet as medically feasible. 3) consider prostat1 packet bid. 4) continue current plan of care
--- NOTE | 2019-12-12 22:35 | NUR ---
Feeding running at 50cc residual at 2235 is 2ml, hob 45 degrees, pt tolerating feeding well, bowel sound is normoactive.
--- NOTE | 2019-12-12 23:44 | NUR ---
Opening notes Assumed care, on vent and sedated with propofol and fentanyl, levophed @ 2 mcg/min, drips infusing @ right IJ central line, unable to open eyes spontaneously but withdraws to pain, clear breath sounds noted with minimal ET secretions, ceballos catheter draining to a clear light sabine urine, intact skin noted except for some bruises in upper extremities. Bed in lowest position with side rails up, bed alarm on. Will continue care and monitoring. SCD are on bilaterally. See interventions for full assessment. Addendum: 12/12/19 at 2346 by JEET JUAREZ RN RN wrong time, correct time 1999
[2019-12-13] VITALS (106 sets, daily range): BP systolic 97–143; BP diastolic 39–73
--- NOTE | 2019-12-13 01:10 | NUR ---
CARES Bed bath with partial linen change, sacral Optifoam applied for preventative measures, skin intact.
--- NOTE | 2019-12-13 01:41 | NUR ---
COOLING MEASURES IMPLEMENTED TEMP 99.5
[2019-12-13] MEDS: PROPOFOL 100 ML IV SCH ×2 (02:01→23:29)
[2019-12-13] MEDS: ALBUTEROL SULF 2.5 MG/0.5ML(0.5%) NEB SOLN NEB SCH ×6 (02:22→22:44)
[2019-12-13] MEDS: IPRATROPIUM BROM 0.5 MG/2.5ML INH SOL NEB SCH ×6 (02:22→22:44)
--- NOTE | 2019-12-13 04:23 | NUR ---
Feeding off Feeding off for possible am cpap feeding was running at 50cc/hr, stopped at 0423, residual 4 ml.
[2019-12-13] MEDS: VANCOMYCIN 1GM/250ML 250 ML IV SCH ×2 (05:15→13:47)
[2019-12-13] MEDS: PIPERACILLIN-TAZOB 3.375GM 100 ML IV SCH ×3 (05:30→21:51)
--- NOTE | 2019-12-13 06:20 | NUR ---
RT at bed side Addendum: 12/13/19 at 0634 by JEET JUAREZ RN RN wrong patient
--- NOTE | 2019-12-13 09:20 | NUR ---
SEDATION VACATION: Patient taken off of sedation. Plan for CPAP trial when patient awake.
[2019-12-13] MEDS: DexMEDEtomidine 400 MCG in D5W 5% 96 ML IV SCH (09:36)
[2019-12-13] MEDS: FLUCONAZOLE 200MG/100ML 100 ML IV SCH (09:58)
[2019-12-13] MEDS: ENOXAPARIN SOD 40 MG/0.4 ML SYRINGE SC SCH (09:58)
[2019-12-13] MEDS: PANTOPRAZOLE 40 MG/10 ML VIAL INJ IV SCH (09:58)
[2019-12-13] MEDS: AZITHROMYCIN 500MG/ 250ML 250 ML IV SCH (11:34)
--- NOTE | 2019-12-13 12:17 | NUR ---
ROUNDS: Patient continues off of sedation, not waking up. Spontaneously opens eyes, does not track does not follow commands.
[2019-12-13] MEDS: MIDAZOLAM DRIP 50 mg/50mL 50 ML IV SCH (14:28)
[2019-12-13] MEDS: NOREPINEPHRINE 8 MG/250ML KIT 250 ML IV SCH (15:33)
[2019-12-13] MEDS: fentaNYL Drip 2500mCg/250mlNS 250 ML IV SCH (16:00)
--- NOTE | 2019-12-13 16:00 | NUR ---
SEDATION RE-STARTED: Patient tachypneic rate 30-35 with elevated PIP pressure of 45-50. Patient suctioned with no secretions present. Also noted tachycardia HR increased to 130. Fentanyl started at 25 mcg's as patient is no loner tolerating ventilator.
--- NOTE | 2019-12-13 19:50 | NUR ---
OPEN NOTES RECEIVED PATIENT SEDATED WITH IV FENTANYL AT 100MCG/HR. EYES WERE OPEN BUT NOT FOLLOWING COMMANDS. TEMP 100.8F RECTALLY - ON COOLING MEASURES INTUBATED AND VENTILATED, BREATHS 30-36/MIN, SATS 94-96%. SUCTIONED ETT AND ORALLY. ORAL CARE DONE. HR 120'S/MIN, BP STABLE. OGT PLACEMENT CHECKED, WITH ONGOING TUBE FEEDING JEVITY AT 50ML/HR. RESIDUAL 30MLS. [place] CATHETER IN PLACED RIGHT IJ TLC - DRESSING DRY AND INTACT. UNUSED PORTS FLUSHED WITH NS. FULL ASSESSMENT DONE - REFER INTERVENTIONS WILL CONTINUE TO MONITOR
--- NOTE | 2019-12-13 20:00 | NUR ---
SEDATION SEDATION INCREASED TO KEEP PATIENT COMFORTABLE ON VENTILATOR
--- NOTE | 2019-12-13 20:00 | NUR ---
TEMP 100.8F SPONGE BATH DONE ICE PACKS RE-APPLIED COLD COMPRESS ON FOREHEAD WILL CONTINUE TO MONITOR
[2019-12-13] MEDS: ACETAMINOPHEN 500 MG TAB PO PRN (21:50)
--- NOTE | 2019-12-13 23:30 | NUR ---
RESPIRATORY PATIENT'S RR STILL 30-36/MIN, SATS 96% TV IS GOOD SUCTIONED - SMALL AMOUNT OF SECRETIONS IN ETT IV FENTANYL AT 200MCG/HR RE-STARTED PATIENT ON IV PROPOFOL AT 5MCG TO KEEP PATIENT BREATHING COMFORTABLY REFER IV SPREADSHEET FOR TITRATION
[2019-12-14] VITALS (106 sets, daily range): BP systolic 78–145; BP diastolic 35–83
--- NOTE | 2019-12-14 | NUR ---
TEMP RE-ASSESS PATIENT'S TEMP NOW 100.2F TRENDING DOWN WILL CONTINUE TO MONITOR
--- NOTE | 2019-12-14 01:00 | NUR ---
TUBE FEEDING HELD FOR POSSIBLE CPAP TRIAL LATER
--- NOTE | 2019-12-14 01:30 | NUR ---
RESPIRATORY PATIENT'S BREATHING 12-14/MIN NOW WILL CONTINUE TO MONITOR
[2019-12-14] MEDS: ALBUTEROL SULF 2.5 MG/0.5ML(0.5%) NEB SOLN NEB SCH ×6 (02:10→22:32)
[2019-12-14] MEDS: IPRATROPIUM BROM 0.5 MG/2.5ML INH SOL NEB SCH ×6 (02:10→22:32)
--- NOTE | 2019-12-14 02:30 | NUR ---
BP LOW PATIENT'S SBP 85-89 MMHG FOR FEW READINGS RE-STARTED IV LEVOPHED AT 2MCG/MIN WILL CONTINUE TO MONITOR Addendum: 12/14/19 at 0319 by Shreya Jeffery RN BP TRENDING TO THE 80'S WHILE IM ON BREAK
--- NOTE | 2019-12-14 04:00 | NUR ---
SEDATION DECREASING SEDATION FOR POSSIBLE CPAP REFER IV SPREADSHEET
--- NOTE | 2019-12-14 04:00 | NUR ---
LEVOPHED WEANED OFF BP STABLE NOW REFER VS FLOW SHEET
--- NOTE | 2019-12-14 05:10 | NUR ---
PARTIAL LINEN CHANGE DONE
[2019-12-14] MEDS: PIPERACILLIN-TAZOB 3.375GM 100 ML IV SCH ×3 (05:30→22:04)
[2019-12-14 05:31] LABS: BUN/Creatinine Ratio 14.3; Calcium 8.8 mg/dL (8.5-10.1); Potassium 3.8 mmol/L (3.5-5.1)
[2019-12-14 05:34] LABS: Basophils # (auto) 0 10 ^3/uL (0-0.2); Basophils % (auto) 0.4 % (0.0-2.0); Eosinophils # (auto) 0.7 10 ^3/uL (0-0.8); Eosinophils % (auto) 4.8 % (0.0-7.0); Hematocrit 26.6 % (36.0-46.0); Hemoglobin 8.7 g/dL (12.2-16.2); Lymphocytes % (auto) 7.5 % (10.0-50.0); Mean Corpuscular Hemoglobin 29.1 pg (28.0-32.0); Mean Corpuscular Hgb Conc. 32.7 g/dL (32.0-36.0); Monocytes # (auto) 1.5 10 ^3/uL (0-1.3); Monocytes % (auto) 11.4 % (0.0-12.0); Neutrophils # (auto) 10.3 10 ^3/uL (1.6-8.6); Neutrophils % (auto) 75.9 % (37.0-80.0); Nucleated Red Blood Cells % 0.1 %; Platelet Count (auto) 445 10^3/uL (140-450); Red Blood Cells 2.99 10^6/uL (4.0-5.20); Red Cell Distribution Width 15.4 % (11.8-14.3); White Blood Cell 13.5 10^3/uL (4.4-10.8)
--- NOTE | 2019-12-14 05:40 | NUR ---
RE-ASSESS PATIENT OPEN EYES TO STIMULI BUT NOT FOLLOWING COMMANDS IV SEDATION TITRATED DOWN - REFER IV SPREADSHEET FOR POSSIBLE CPAP TODAY IF FULLY AWAKE TEMP WENT DOWN TO 98.6F BUT NOW BACK TO 99F HR AND BP STABLE. WILL CONTINUE TO MONITOR
--- NOTE | 2019-12-14 07:15 | NUR ---
REPORT REPORT GIVEN TO BRYCE LIANG
--- NOTE | 2019-12-14 07:35 | NUR ---
ASSESS- PT. LYING IN BED ON VENT SIZE # 8.0 ET, 24 AT THE LIP, AC-14, TV-450, PEEP-8, FIO2-30%. LUNGS CLEAR BISHOP. INSPIRATORY AND EXPIRATORY, DIMINISHED BASES BISHOP. PT. HAS GAG/COUGH REFLEX. BITE BLOCK IN PLACE. NOTICED SM. SCAB ON UPPER LIPPED CLOSED, NO BLEEDING. ON FENTANYL GTT. AT 150 MCG. PT. RESPONDS TO PAINFUL/TACTILE STIMULI. EYES OPEN, NO TRACKING. NO MOVEMENT OF EXTREMITIES SEEN. LOWER EXT. RIGID BISHOP. PT.'S NECK BENDS BACK, RIGID. RADIAL PULSES STRONG, PALPABLE BISHOP. DORSALIS PEDAL PULSES STRONG, PALPABLE BISHOP. SCD'S BISHOP. LE. NON-PITTING 1 PLUS EDEMA ARMS/HANDS BISHOP. 1 PLUS NON-PITTING EDEMA ANKLES BISHOP. SKIN INTACT. OPTIFOAM TO SACRUM PREVENTATIVE. BRUISED TO ARMS BISHOP. ABD. SOFT, FLAT. BOWEL SOUNDS ALL FOUR QUADRANTS. OGT IN PLACE, CLAMPED, TF OFF IN CASE CPAP TRIAL ORDERED TODAY. RECTAL PROBE IN PLACE. TLC RT. IJ INTACT.
--- NOTE | 2019-12-14 07:40 | NUR ---
PULLED PT. UP IN BED TO TURNED TO LT. SIDE. PT'S. HR INCREASED TO UPPER 130'S ST WITHOUT ECTOPY. O2 SATS DECREASED TO 89% WITH GOOD PLETH. PT'.S EYES OPEN, NO TRACKING. DOES NOT FOLLOW ANY COMMANDS. FENTANYL GTT. INCREASED FROM 150 MCGS. TO 175 MCGS. GAVE PT. 100% FIO2 ON VENT AND SATS INCREASED MID TO UPPER 90'S. MONITORING VSS.
--- NOTE | 2019-12-14 08:00 | NUR ---
HR DECREASED TO ONE TEENS ST.
--- NOTE | 2019-12-14 08:29 | NUR ---
Respiratory note: ANCHOR FAST CHANGED OUT TO AN ANCHOR FAST WITH GUARD TO PREVENT PT BITING ON ETT. RN AZUL AWARE OF CHANGES.
--- NOTE | 2019-12-14 08:45 | NUR ---
SBP DECREASED 78-81 ON PROPOFOL GTT. AT 5 MCG. TURNED OFF PROPOFOL GTT. NO VASOPRESSORS. MONITORING BP.
[2019-12-14] MEDS: DexMEDEtomidine 400 MCG in D5W 5% 96 ML IV SCH (09:36)
[2019-12-14] MEDS: PANTOPRAZOLE 40 MG/10 ML VIAL INJ IV SCH (09:51)
[2019-12-14] MEDS: ENOXAPARIN SOD 40 MG/0.4 ML SYRINGE SC SCH (09:52)
[2019-12-14] MEDS: FLUCONAZOLE 200MG/100ML 100 ML IV SCH (09:52)
[2019-12-14] MEDS: AZITHROMYCIN 500MG/ 250ML 250 ML IV SCH (09:52)
--- NOTE | 2019-12-14 10:00 | NUR ---
PERFORMED ORAL CARE ON PT. AND HR INCREASED TO UPPER 130'S TO LOW 140'S FOR SEVERAL MINUTES AND THEN DECREASED TO UPPER 120'S ST. PT. HAS BEEN CALM AND RELAXED.
--- NOTE | 2019-12-14 10:30 | NUR ---
DR. QUEEN Provider/Hospitalist at bedside. GAVE UPDATE ON PT.
[2019-12-14] MEDS: MIDAZOLAM DRIP 50 mg/50mL 50 ML IV SCH (10:48)
[2019-12-14] MEDS: NOREPINEPHRINE 8 MG/250ML KIT 250 ML IV SCH (10:48)
--- NOTE | 2019-12-14 12:25 | NUR ---
NO CPAP TRIAL FOR TODAY. NO EMESIS. RESTARTED TF OF JEVITY AT 50 CC/HR. GOAL RATE PT. WAS PREVIOUSLY ON. BOWEL SOUNDS ALL FOUR QUADRANTS. NO BM.
[2019-12-14] MEDS: VANCOMYCIN 1GM/250ML 250 ML IV SCH (13:06)
--- NOTE | 2019-12-14 13:10 | NUR ---
DR. OCHOA Provider/Hospitalist at bedside. GAVE UPDATE ON PT. NEW ORDERS RECEIVED.
[2019-12-14] MEDS ORDERED: MICAFUNGIN SODIUM 100 MG in SODIUM CHL 0.9% 100 ML IV ONE (13:15)
[2019-12-14] MEDS: fentaNYL Drip 2500mCg/250mlNS 250 ML IV SCH ×2 (14:28→19:42)
--- NOTE | 2019-12-14 15:20 | NUR ---
Nutrition Followup Notes Wt: 71.5 kg Pt`s intubated mildly sedated with propofol @ 1.98 ml/hr providing 52 kcals from fats. Pt is currently NPO off EN support, d/t scheduled CPAP trial today. Est [employer] needs ABW 57 [id number] kcals (20-23 kcal/kgBW), Est Protein needs: 57-68 gms/day (1.0-1.2 gm/kgBW r/t severe hypoalb). Will continue to monitor and reassess prn. LABS: GLU 116 H, ALB 1.6 L. GI: Last BM reported on 12/03 per RN doc BS: 13 mod risk, Please refer to wound assessment report for full details. PES: Altered nutrition related lab values r/t current chronic medical condition aeb severe hypoalbuminemia Impaired swallowing r/t current medical condition aeb pt`s intubated sedated with order of NPO Comments Will continue to closely monitor pertinent labs, NPO status and skin status prn. Will followup in 2-3 days 1) ) consider alternate nutrition support if pt NPO > 48 hrs. If EN is choice of route consider Jevity 1.2 @ 45 ml/hr per MD approval. 2) advance diet as medically feasible. 3) consider prostat1 packet bid. 4) continue current plan of care
--- NOTE | 2019-12-14 17:15 | NUR ---
AUSCULTATED GOOD PLACEMENT WITH OGT. NO EMESIS. CHECKED RESIDUAL 5 CC. CONTINUING JEVITY AT 50 CC/HR. GOAL RATE.
--- NOTE | 2019-12-14 19:30 | NUR ---
OPEN NOTES RECEIVED PATIENT SEDATED WITH IV FENTANYL AT 200MCG/HR. OPEN EYES SPONTANEOUSLY BUT NOT TRACKING OR FOLLOWING COMMANDS. PATIENT'S BODY STIFF. REMAINED INTUBATED AND VENTILATED, SATS 93-95%. SUCTIONED ETT AND ORALLY. ORAL CARE DONE. FOR CPAP TOMORROW WHEN MORE AWAKE. HR 100-120/MIN SINUS TACHYCARDIA. BP STABLE. TUBE FEEDING TOLERATED, RESIDUAL 20MLS FULL ASSESSMENT DONE - REFER INTERVENTIONS WILL CONTINUE TO MONITOR
[2019-12-15] VITALS (92 sets, daily range): BP systolic 115–155; BP diastolic 54–81
[2019-12-15] MEDS: IPRATROPIUM BROM 0.5 MG/2.5ML INH SOL NEB SCH ×6 (02:21→22:20)
[2019-12-15] MEDS: ALBUTEROL SULF 2.5 MG/0.5ML(0.5%) NEB SOLN NEB SCH ×6 (02:21→22:20)
[2019-12-15] MEDS: PIPERACILLIN-TAZOB 3.375GM 100 ML IV SCH ×3 (05:26→21:48)
[2019-12-15 05:41] LABS: Basophils # (auto) 0.1 10 ^3/uL (0-0.2); Basophils % (auto) 0.5 % (0.0-2.0); Eosinophils # (auto) 0.6 10 ^3/uL (0-0.8); Eosinophils % (auto) 4.2 % (0.0-7.0); Hematocrit 26.5 % (36.0-46.0); Hemoglobin 8.6 g/dL (12.2-16.2); Lymphocytes # (auto) 0.6 10 ^3/uL (0.4-5.4); Lymphocytes % (auto) 4.6 % (10.0-50.0); Mean Corpuscular Hemoglobin 29.1 pg (28.0-32.0); Mean Corpuscular Hgb Conc. 32.5 g/dL (32.0-36.0); Mean Corpuscular Volume 89.4 fL (80.0-100.0); Monocytes # (auto) 1.6 10 ^3/uL (0-1.3); Neutrophils # (auto) 10.6 10 ^3/uL (1.6-8.6); Neutrophils % (auto) 78.7 % (37.0-80.0); Nucleated Red Blood Cells % 0.1 %; Platelet Count (auto) 455 10^3/uL (140-450); Red Blood Cells 2.96 10^6/uL (4.0-5.20); Red Cell Distribution Width 15.9 % (11.8-14.3); White Blood Cell 13.4 10^3/uL (4.4-10.8)
[2019-12-15 06:03] LABS: Potassium 4.1 mmol/L (3.5-5.1)
[2019-12-15 06:12] LABS: Calcium 8.8 mg/dL (8.5-10.1)
--- NOTE | 2019-12-15 08:27 | NUR ---
SPOKE WITH VARGHESE SON, HAD PASSWORD, UPDATED ON PLAN OF CARE. ALL QUESTIONS/CONCERNS ADDRESSED.
--- NOTE | 2019-12-15 08:38 | NUR ---
INITIATED CPAP TRIAL ALL SEDATION HAS BEEN TURNED OFF. PT IS AWAKE WITH EYES OPEN, FOLLOWS SIMPLE COMMANDS SLOWLY. PLACED PT ON CPAP TRIAL ORDERED, PT TOLERATING WELL WITH VT 700-800ML, RR 8-10. ALARMS SET AND AUDIBLE. WEANING PARAMETERS OBTAINED: NIF -35, VC 844 ML, RSBI 10. WILL CONTINUE TOLERATED, ABG TO FOLLOW IN ONE HOUR. NOTIFIED RN OF CHANGES. WILL CONTINUE TO MONITOR.
--- NOTE | 2019-12-15 10:20 | NUR ---
DR QUEEN AT BEDSIDE, DR URBINA PATIENT ON CPAP TRIAL FOLLOWING SOME COMMANDS BUT STILL VERY SLEEPY/WEAK WITH RR LOW AT TIMES 8-10. OK TO CONTINUE CPAP TRIAL
--- NOTE | 2019-12-15 10:30 | NUR ---
CALLED DR QUEEN WITH CPAP ABG RESULTS. NO EXTUBATION ORDERS RECEIVED. PLANS TO TRY CPAP TRIAL AGAIN TOMORROW. RN AWARE. PT CURRENTLY REMAINS ON CPAP TOLERATING WELL, WILL CONTINUE TOLERATED.
[2019-12-15] MEDS: PANTOPRAZOLE 40 MG/10 ML VIAL INJ IV SCH (10:33)
[2019-12-15] MEDS: ENOXAPARIN SOD 40 MG/0.4 ML SYRINGE SC SCH (10:34)
[2019-12-15] MEDS: DexMEDEtomidine 400 MCG in D5W 5% 96 ML IV SCH (10:41)
[2019-12-15] MEDS: MICAFUNGIN SODIUM 100 MG in SODIUM CHL 0.9% 100 ML IV SCH (10:41)
--- NOTE | 2019-12-15 11:05 | NUR ---
DR BUCKLEY AT BEDSIDE, NO NEW ORDERS Addendum: 12/15/19 at 1114 by Vick Duran RN WRONG PATIENT
[2019-12-15] MEDS: VANCOMYCIN 1GM/250ML 250 ML IV SCH (12:46)
--- NOTE | 2019-12-15 13:14 | NUR ---
DR OCHOA AT BEDSIDE, ORDERED LASIX/POTASSIUM. GAVE OK TO EXTUBATE 30 MINS AFTER LASIX IS GIVEN IF BRET IS OK WITH IT. RN CALLED DR QUEEN AND JOSSE TO EXTUBATE. RT AWARE. RN WILL WAIT FOR LASIX TO BE AVAILABLE ON EMAR TO GIVE.
[2019-12-15] MEDS ORDERED: POTASSIUM EFFERVESENT TAB 25 MEQ GT ONE (13:15)
[2019-12-15] MEDS ORDERED: FUROSEMIDE 20 MG/2 ML VIAL IV ONE (13:15)
--- NOTE | 2019-12-15 13:25 | NUR ---
LASIX GIVEN, RT AWARE TO EXTUBATE IN 30 MINS.
[2019-12-15] MEDS: PROPOFOL 100 ML IV SCH (14:28)
[2019-12-15] MEDS: MIDAZOLAM DRIP 50 mg/50mL 50 ML IV SCH (14:28)
--- NOTE | 2019-12-15 14:35 | NUR ---
EXUBATED Extubated pt as ordered with RN at bedside. Pt extubated to cool aerosol mask 40%. HR 120, RR 20, SPO2 96%. No stridor noted. Notable sores on cheeks under where the holister was secured, left greater than right. RN also aware. No s/s of respiratory distress noted.
--- NOTE | 2019-12-15 15:13 | NUR ---
EXTUBATED BY RT ORDERED AT 1435. NON-BLANCHABLE PURPLE AREAS NOTED UPON REMOVING ETT SECURING DEVICE TO BILATERAL CHEEKS. PICTURES TAKEN PATIENT DENIES ANY PAIN TO AREA.
[2019-12-15] MEDS: NOREPINEPHRINE 8 MG/250ML KIT 250 ML IV SCH (16:20)
--- NOTE | 2019-12-15 16:56 | NUR ---
REMAINS AWAKE, STARES UP AT CEILING, WILL NOT TRACK BUT WILL ATTEMPT, ANSWERS QUESTIONS APPROPRIATELY. ABLE TO MOVE ALL EXTREMITIES. PERRLA. LUNG SOUNDS CLEAR THROUGHOUT. SPO2 96%. NO RESPIRATORY DISTRESS.
--- NOTE | 2019-12-15 18:05 | NUR ---
WOUND CARE NOTE: New wound care received regarding skin integrity issue noted to patient's cheeks upon extubation and removal of ETT securing device. Bedside nurse took photograph of patient's bilateral cheek upon discovery for reference. Patient continue resting in ICU bed in Rm. 108. Patient extubated earlier today. She's awake, on O2 via NC, respirations even and unlabored. Patient appears to be in no pain using Pat Bellamy Faces Pain Scale. Her Juanito score is 13. Skin assessment done with the assistance of patient's nurse, BRYCE Hickman. Bedside nurse noted non blanchable redness (Stage 1 pressure injury) to patient's L (5x3cm) and Rt cheek (4x1.5cm). Skin is intact, red and non-blanchable, no drainage/odor noted, left open to air. Patient's Rt and Lt forearm continue to display intact circular ecchymosis, area is clean and dry, left open to air. Patient tolerated well, repositioned for comfort, redistributed pressure points with pillows. RECOMMENDATION: Continuation of all wound care order prescribed by MD, continue with skin/wound plan of care, continue monitoring by wound care while patient is hospitalized. Addendum: 12/15/19 at 1831 by Monica Cummins RN Amended: Links added.
--- NOTE | 2019-12-15 18:11 | NUR ---
UPDATED MIKE KWONG ON EXTUBATION AND PLAN OF CARE, ALL QUESTIONS ADDRESSED
--- NOTE | 2019-12-15 19:00 | NUR ---
INCREASED OXYGEN TO 5LPM VIA NC FROM 4LPM DUE TO SPO2 91%. REMAINS AWAKE AND ABLE TO FOLLOW SOME COMMANDS BUT IS VERY WEAK. HOB REMAINS ELEVATED.
--- NOTE | 2019-12-15 19:29 | NUR ---
REPORT GIVEN TO SHRUTI WU
--- NOTE | 2019-12-15 19:50 | NUR ---
OPEN NOTES PATIENT IS AWAKE, RESPONDS WHEN CALLED. WORDS UNCLEAR AT TIMES.ABLE TO FOLLOW SIMPLE COMMANDS. STILL VERY WEAK. GAG NOTED,ASKED PATIENT TO COUGH BUT PATIENT UNABLE TO FOLLOW. ON NASAL CANNULA AT 5L/MIN, BREATHING 14-16/MIN WITH EPISODES OF SHALLOW BREATHS. ENCOURAGED TO DO DEEP BREATHING EXERCISES. REPOSITIONED. PROPPED UP IN BED. HR 110-120'S/MIN, BP STABLE. KEPT ON NPO FOR NOW UNTIL MORE STRONGER AND AWAKE. [place] CATHETER IN PLACED. TEMP 100F - COOLING MEASURES RENDERED FULL ASSESSMENT DONE -REFER INTERVENTIONS
--- NOTE | 2019-12-15 22:13 | NUR ---
SON CALLED. CORRECT PASSWORD GIVEN. UPDATED HIM OF PATIENT'S CONDITION,ALL QUESTIONS ANSWERED. VERBALIZED UNDERSTANDING
--- NOTE | 2019-12-15 22:34 | NUR ---
PATIENT IS BREATHING COMFORTABLY JUST HAD HER BREATHING TREATMENT DONE HR 110/MIN, BP STABLE CALLED SON AGAIN SO THAT HE CAN TALK TO PATIENT. PHONE ON SPEAKER. PATIENT TRYING TO RESPOND.
[2019-12-16] VITALS (24 sets, daily range): BP systolic 113–146; BP diastolic 58–76
--- NOTE | 2019-12-16 00:10 | NUR ---
PATIENT BREATHING COMFORTABLY SATS 92-94% ON NC 5L/MIN ORAL CARE DONE, NOT MUCH SECRETION SUCTIONED. VS STABLE WILL CONTINUE TO MONITOR
[2019-12-16] MEDS: IPRATROPIUM BROM 0.5 MG/2.5ML INH SOL NEB SCH ×6 (02:35→21:59)
[2019-12-16] MEDS: ALBUTEROL SULF 2.5 MG/0.5ML(0.5%) NEB SOLN NEB SCH ×6 (02:35→21:58)
[2019-12-16 04:46] LABS: Basophils # (auto) 0.1 10 ^3/uL (0-0.2); Basophils % (auto) 0.7 % (0.0-2.0); Eosinophils # (auto) 0.1 10 ^3/uL (0-0.8); Eosinophils % (auto) 0.9 % (0.0-7.0); Hematocrit 27.5 % (36.0-46.0); Hemoglobin 8.9 g/dL (12.2-16.2); Lymphocytes % (auto) 6.1 % (10.0-50.0); Mean Corpuscular Hemoglobin 28.8 pg (28.0-32.0); Mean Corpuscular Hgb Conc. 32.5 g/dL (32.0-36.0); Mean Corpuscular Volume 88.7 fL (80.0-100.0); Monocytes # (auto) 1.9 10 ^3/uL (0-1.3); Monocytes % (auto) 11.1 % (0.0-12.0); Neutrophils # (auto) 13.6 10 ^3/uL (1.6-8.6); Neutrophils % (auto) 81.2 % (37.0-80.0); Platelet Count (auto) 542 10^3/uL (140-450); Red Cell Distribution Width 15.8 % (11.8-14.3); White Blood Cell 16.8 10^3/uL (4.4-10.8)
--- NOTE | 2019-12-16 04:50 | NUR ---
PATIENT ABLE TO COUGH MORE STRONGER BUT VERY MINIMAL SECRETIONS SUCTIONED ORAL CARE DONE.
--- NOTE | 2019-12-16 05:00 | NUR ---
TRIED TO GIVE WATER - PATIENT REFUSED
[2019-12-16 05:09] LABS: Potassium 3.8 mmol/L (3.5-5.1)
[2019-12-16 05:13] LABS: BUN/Creatinine Ratio 19.3; Calcium 9.1 mg/dL (8.5-10.1)
--- NOTE | 2019-12-16 05:30 | NUR ---
HYGIENE/TEMP SPONGE BATH DONE. LINENS CHANGED TEMP 99.9F - ICE PACKS APPLIED
[2019-12-16] MEDS: PIPERACILLIN-TAZOB 3.375GM 100 ML IV SCH ×3 (05:38→21:43)
--- NOTE | 2019-12-16 06:00 | NUR ---
NEURO STATUS PATIENT OPEN EYES TO CALL. STILL UNABLE TO COMPREHEND SOME OF HER WORDS. ABLE TO ANSWER YES OR NO, STILL ABLE TO FOLLOW SIMPLE COMMANDS. MOVES ALL LIMBS BUT STILL WEAK
--- NOTE | 2019-12-16 07:43 | NUR ---
REPORT GIVEN TO BRYCE LINDO
[2019-12-16] MEDS: DexMEDEtomidine 400 MCG in D5W 5% 96 ML IV SCH (09:36)
[2019-12-16] MEDS ORDERED: AZITHROMYCIN 500MG/ 250ML 250 ML IV SCH (10:00)
[2019-12-16] MEDS: ENOXAPARIN SOD 40 MG/0.4 ML SYRINGE SC SCH (11:23)
[2019-12-16] MEDS: PANTOPRAZOLE 40 MG/10 ML VIAL INJ IV SCH (11:23)
[2019-12-16] MEDS: MICAFUNGIN SODIUM 100 MG in SODIUM CHL 0.9% 100 ML IV SCH (11:23)
[2019-12-16] MEDS: MORPHINE SULF INJ 2 MG/ML SYRINGE 1ML IV PRN ×2 (11:39→20:35)
--- NOTE | 2019-12-16 12:17 | NUR ---
Unit short staffed and called in. Received report from David Boyce RN and resumed care at 1015. Orders reviewed and ongoing assessments being done. Being treated for respiratory failure and required intubation this hospitalization. Extubated on 12/15/19 at 1435 pm. Fatigued but able to answer simple questions with yes or no and able to follow simple directions. History of arthritis and joint pains. All extremities are hyper extended and stiff. Requires PROM to bend extremities, resistant met. Arms and legs are swollen with bruising noted to both arms in the forearm area. AM scheduled medications given late due to arrival to unit. Does not tolerate HOB down and turning. Pulse oximetry measured 85% when bed flattened and turned. Increased oxygen flow to 15L/min, until pulse oximetry reached >92%, about 15 minutes. Oxymizer set at 10L/min at 1200 noon and in no acute distress. Suffers from chronic pain. Pain level at 1130 5/10 on pain scale. Reviewed pain management and offered pain medication. She requested pain medication and 1 mg of Morphine given IVP at 1139. At this time she states pain has gone away. Dr. Ugalde, zigzag elastic attacher in unit and made him aware of drop in pulse oximetry during care. Per Dr. Ugalde she has been having theses episodes post extubation.
[2019-12-16] MEDS: VANCOMYCIN 1GM/250ML 250 ML IV SCH (12:50)
[2019-12-16] MEDS ORDERED: FUROSEMIDE 40 MG/4 ML VIAL IV ONE (13:00)
[2019-12-16] MEDS ORDERED: POTASSIUM CHL 20MEQ/100ML 100 ML IV ONE (13:00)
--- NOTE | 2019-12-16 14:04 | NUR ---
Nutrition Followup Notes Wt: 69.7 kg Pt`s extubated, breathing on her own, with no diet order yet today. Noted pt is confused, weak. Will continue to closely monitor pertinent labs, PO intake and skin status prn. Will followup in 2-3 days Est [employer] needs ABW 57 [id number] kcals (20-23 kcal/kgBW), Est Protein needs: 57-68 gms/day (1.0-1.2 gm/kgBW r/t severe hypoalb). Will continue to monitor and reassess prn. LABS: ALB 1.6 L. GI: Last BM reported on 12/10 per RN doc BS: 13 mod risk, Please refer to wound assessment report for full details. PES: Altered nutrition related lab values r/t current chronic medical condition aeb severe hypoalbuminemia Impaired swallowing r/t current medical condition aeb pt`s intubated sedated with order of NPO Comments Will continue to closely monitor pertinent labs, NPO status and skin status prn. Will followup in 2-3 days 1) ) consider alternate nutrition support if pt NPO > 48 hrs. If EN is choice of route consider Jevity 1.2 @ 45 ml/hr per MD approval. 2) advance diet as medically feasible. 3) consider prostat1 packet bid. 4) continue current plan of care
--- NOTE | 2019-12-16 15:09 | NUR ---
Family updated on pt status Family of CEZAR FERNANDEZARET phoned here and was updated on patient's status and condition. All questions and concerns addressed. verbalized understanding.
[2019-12-16] MEDS: NOREPINEPHRINE 8 MG/250ML KIT 250 ML IV SCH (15:33)
[2019-12-16] MEDS: FUROSEMIDE 40 MG/4 ML VIAL IV SCH (18:19)
--- NOTE | 2019-12-16 18:41 | NUR ---
Continuing to require Oxymizer 8-10 Liters/min. Continues to have episodes of pulse oximetry dropping to 85% when repositioning. Continue current plan of care.
[2019-12-17] VITALS (26 sets, daily range): BP systolic 103–143; BP diastolic 55–76
--- NOTE | 2019-12-17 | NUR ---
Patient requires Oxymizer 10 Liters. Desaturates while repositioning. Continue current plan of care.
[2019-12-17] MEDS: IPRATROPIUM BROM 0.5 MG/2.5ML INH SOL NEB SCH ×6 (01:54→21:58)
[2019-12-17] MEDS: ALBUTEROL SULF 2.5 MG/0.5ML(0.5%) NEB SOLN NEB SCH ×6 (01:54→21:58)
[2019-12-17] MEDS: MORPHINE SULF INJ 2 MG/ML SYRINGE 1ML IV PRN ×2 (02:29→15:43)
[2019-12-17] MEDS: PIPERACILLIN-TAZOB 2.25GM 50 ML IV SCH ×4 (06:00→18:00)
--- NOTE | 2019-12-17 06:00 | NUR ---
ASSESSMENT DURING NIGHT WHILE TURNING, PATIENT DESATURATED TO 88-90%. PATIENT SPEAKS FEW WORDS. OBEYS SIMPLE COMMANDS.
[2019-12-17] MEDS: PIPERACILLIN-TAZOB 3.375GM 100 ML IV SCH ×2 (06:04→13:52)
[2019-12-17] MEDS: FUROSEMIDE 40 MG/4 ML VIAL IV SCH (06:05)
[2019-12-17 06:28] LABS: Basophils # (auto) 0.2 10 ^3/uL (0-0.2); Basophils % (auto) 0.9 % (0.0-2.0); Eosinophils # (auto) 0.1 10 ^3/uL (0-0.8); Eosinophils % (auto) 0.4 % (0.0-7.0); Hemoglobin 8.9 g/dL (12.2-16.2); Lymphocytes # (auto) 1.1 10 ^3/uL (0.4-5.4); Lymphocytes % (auto) 6.2 % (10.0-50.0); Mean Corpuscular Hgb Conc. 32.8 g/dL (32.0-36.0); Mean Corpuscular Volume 88.2 fL (80.0-100.0); Monocytes # (auto) 1.9 10 ^3/uL (0-1.3); Monocytes % (auto) 10.7 % (0.0-12.0); Neutrophils # (auto) 14.7 10 ^3/uL (1.6-8.6); Neutrophils % (auto) 81.8 % (37.0-80.0); Platelet Count (auto) 625 10^3/uL (140-450); Red Blood Cells 3.06 10^6/uL (4.0-5.20); Red Cell Distribution Width 15.6 % (11.8-14.3)
[2019-12-17 06:50] LABS: BUN/Creatinine Ratio 23.1; Calcium 9.4 mg/dL (8.5-10.1); Potassium 3.2 mmol/L (3.5-5.1)
[2019-12-17] MEDS: MICAFUNGIN SODIUM 100 MG in SODIUM CHL 0.9% 100 ML IV SCH (09:43)
[2019-12-17] MEDS: ENOXAPARIN SOD 40 MG/0.4 ML SYRINGE SC SCH (09:44)
[2019-12-17] MEDS: PANTOPRAZOLE 40 MG/10 ML VIAL INJ IV SCH (09:44)
[2019-12-17] MEDS ORDERED: FUROSEMIDE 40 MG/4 ML VIAL IV SCH (10:00)
[2019-12-17] MEDS: VANCOMYCIN 1GM/250ML 250 ML IV SCH (11:16)
[2019-12-17] MEDS ORDERED: POTASSIUM CHL 20MEQ/100ML 100 ML IV ONE (14:45)
[2019-12-17] MEDS ORDERED: methylPREDNISolone SOD SUCC 125 MG/2 ML VL IV ONE (14:45)
[2019-12-17] MEDS ORDERED: ENOXAPARIN SOD 30 MG/0.3 ML SYRINGE SC ONE (14:45)
[2019-12-17] MEDS ORDERED: IOHEXOL 350 MG/ML 100ML IJ ONE ×2 (15:03→15:11)
[2019-12-17] MEDS ORDERED: methylPREDNISolone SOD SUCC 125 MG/2 ML VL ONE (15:06)
--- NOTE | 2019-12-17 15:15 | NUR ---
PATIENT WENT TO CT. SEE RESULTS.
[2019-12-17] MEDS: NOREPINEPHRINE 8 MG/250ML KIT 250 ML IV SCH (15:30)
--- NOTE | 2019-12-17 15:37 | NUR ---
PATIENT BACK FROM CT. SEE RESULTS.
[2019-12-17] MEDS: methylPREDNISolone SOD SUCC 40 MG/ML VL IV SCH (22:00)
[2019-12-18] VITALS (24 sets, daily range): BP systolic 114–139; BP diastolic 56–70
[2019-12-18] MEDS: IPRATROPIUM BROM 0.5 MG/2.5ML INH SOL NEB SCH ×6 (02:12→22:37)
[2019-12-18] MEDS: ALBUTEROL SULF 2.5 MG/0.5ML(0.5%) NEB SOLN NEB SCH ×6 (02:12→22:38)
[2019-12-18 04:26] LABS: Basophils # (auto) 0 10 ^3/uL (0-0.2); Basophils % (auto) 0.3 % (0.0-2.0); Eosinophils # (auto) 0 10 ^3/uL (0-0.8); Monocytes # (auto) 0.7 10 ^3/uL (0-1.3); Platelet Count (auto) 676 10^3/uL (140-450)
[2019-12-18 04:27] LABS: Hematocrit 28.4 % (36.0-46.0); Hemoglobin 9.4 g/dL (12.2-16.2); Lymphocytes # (auto) 0.7 10 ^3/uL (0.4-5.4); Lymphocytes % (auto) 4.9 % (10.0-50.0); Mean Corpuscular Hemoglobin 29.2 pg (28.0-32.0); Mean Corpuscular Hgb Conc. 33.2 g/dL (32.0-36.0); Monocytes % (auto) 4.6 % (0.0-12.0); Neutrophils # (auto) 13.2 10 ^3/uL (1.6-8.6); Neutrophils % (auto) 90.2 % (37.0-80.0); Nucleated Red Blood Cells % 0.1 %; Red Blood Cells 3.22 10^6/uL (4.0-5.20); Red Cell Distribution Width 15.8 % (11.8-14.3); White Blood Cell 14.6 10^3/uL (4.4-10.8)
[2019-12-18 04:43] LABS: Calcium 9.5 mg/dL (8.5-10.1); Potassium 3.3 mmol/L (3.5-5.1)
[2019-12-18] MEDS: PIPERACILLIN-TAZOB 2.25GM 50 ML IV SCH ×4 (06:00→18:00)
[2019-12-18] MEDS ORDERED: ENOXAPARIN SOD 30 MG/0.3 ML SYRINGE SC SCH (10:00)
[2019-12-18] MEDS: PANTOPRAZOLE 40 MG/10 ML VIAL INJ IV SCH (10:12)
[2019-12-18] MEDS: MICAFUNGIN SODIUM 100 MG in SODIUM CHL 0.9% 100 ML IV SCH (10:12)
[2019-12-18] MEDS: methylPREDNISolone SOD SUCC 40 MG/ML VL IV SCH ×2 (10:13→21:48)
[2019-12-18] MEDS: ENOXAPARIN SOD 40 MG/0.4 ML SYRINGE SC SCH (10:13)
--- NOTE | 2019-12-18 11:21 | NUR ---
Nutrition Followup Notes Wt: 65.2 kg Pt`s extubated, sleeping, breathing on her own with a nasal cannula. PT currently NPO with EN tube feeding on hold d/t scheduled CPAP trial. Pt with no distress per RN doc. Will continue to closely monitor pertinent labs, PO intake and skin status prn. Will followup in 2-3 days Est [employer] needs ABW 57 [id number] kcals (20-23 kcal/kgBW), Est Protein needs: 57-68 gms/day (1.0-1.2 gm/kgBW r/t severe hypoalb). Will continue to monitor and reassess prn. LABS: ALB 1.6 L, Gluc 135 H, BUN 32 H GI: No BM reported today. Last BM reported on 12/10 per RN doc BS: 12 high risk, Please refer to wound assessment report for full details. PES: Altered nutrition related lab values r/t current chronic medical condition aeb severe hypoalbuminemia Impaired swallowing r/t current medical condition aeb pt`s intubated sedated with order of NPO Comments Will continue to closely monitor pertinent labs, NPO status and skin status prn. Will followup in 2-3 days 1) ) Consider alternate nutrition support if pt NPO > 48 hrs. If EN is choice of route consider Jevity 1.2 @ 45 ml/hr per MD approval. 2) Advance diet as medically feasible. 3) Consider prostat 1 packet bid. 4) continue current plan of care
[2019-12-18] MEDS: VANCOMYCIN 1GM/250ML 250 ML IV SCH (11:48)
[2019-12-18] MEDS: MORPHINE SULF INJ 2 MG/ML SYRINGE 1ML IV PRN ×2 (12:29→16:31)
[2019-12-18] MEDS ORDERED: POTASSIUM CHLORIDE 40 MEQ, LIDOCAINE 1% (LOCAL ANESTH.) 4 ML in SODIUM CHL 0.9% 100 ML IV ONE (13:15)
[2019-12-18] MEDS: FUROSEMIDE 40 MG/4 ML VIAL IV SCH (13:56)
[2019-12-18] MEDS: NOREPINEPHRINE 8 MG/250ML KIT 250 ML IV SCH (14:53)
--- NOTE | 2019-12-18 20:27 | NUR ---
FAMILY MEMBER CALLED VARGHESE (SON) WAS UPDATED ON PATIENTS STATUS, PLANNING TO CALL BACK AT 2300.
--- NOTE | 2019-12-18 20:40 | NUR ---
RT AT BEDSIDE MADE AWARE THAT PT DESATURATES TO LOW 70% WHEN COUGHING, WET NON PRODUCTIVE COUGH. HOB 45 DEGREES, LUNG SOUND CLEAR, DIMINISHED AT BASES
--- NOTE | 2019-12-18 20:55 | NUR ---
BRET BARRIOS AT BEDSIDE RECEIVED NEW ORDERS FROM BRET MAX OF PT DESATURATING TO 70% (SPO2) DURING NON PRODUCTIVE COUGH
[2019-12-18] MEDS ORDERED: FUROSEMIDE 40 MG/4 ML VIAL IV ONE (21:00)
--- NOTE | 2019-12-18 23:27 | NUR ---
GAVE REPORT TO DEBBIE WU
--- NOTE | 2019-12-18 23:50 | NUR ---
PATIENT ARRIVED INTO BED 265 PER BED. PLACED ON BEDSIDE MONITOR. NSR WITHOUT ECTOPY. HR RANGING BETWEEN 85-100. SBP STABLE. ON HIGH FLOW OXYGEN 10 L. O2 SAT ON ARRIVAL WAS 91 AND THEN INCREASED TO 96%. LUNGS CLEAR, DIM IN BASES. ABDOMEN SOFT. LIGHT VOICE. ORIENTD TO SELF AND YEAR. UNAWARE THAT IT IS DECEMBER. FOLLOWS COMMANDS. BOG WORKER. MOVED LEGS WEAKLY. HOB 45 DEGREES. RIJ TLC . STARTED THE POTASSIUM CHLORIDE REPLACEMEN. MIDNIGHT ZOSYN HUNG. ALL PULSES STRONG AND PALPABLE. MAYBE 1+ PITTING EDEMA IN THIGHS. SCDS ON. HEELS OFF BED. NOTED FACIAL REDNESS IN REACTION TO OUR ETT STABILIZERS. FEW ECCHYMOTIC AREAS ON ARMS. EXTUBATED ON 12/15/19. FACE IS JUST STARING STRAIGHT AHEAD. ALYSON.
--- NOTE | 2019-12-18 23:50 | NUR ---
PT TRANSFERRED FROM ICU TO [facility] TRANSFERRED BY BED, RN AND CRM ADMINISTRATOR AT BEDSIDE, TRANSFERRED ON 02 10L OXYMIZER AND HEMODYNAMIC MONITOR. BELONGINGS AND CHART WITH PATIENT
[2019-12-19] VITALS (7 sets, daily range): BP systolic 121–132; BP diastolic 56–68
[2019-12-19] MEDS: IPRATROPIUM BROM 0.5 MG/2.5ML INH SOL NEB SCH ×6 (02:00→22:10)
[2019-12-19] MEDS: ALBUTEROL SULF 2.5 MG/0.5ML(0.5%) NEB SOLN NEB SCH ×6 (02:00→22:10)
[2019-12-19] MEDS: POTASSIUM CHL 20MEQ/100ML 100 ML IV SCH ×2 (02:00)
--- NOTE | 2019-12-19 02:00 | NUR ---
KCL REPLACEMENT GOING.
--- NOTE | 2019-12-19 05:00 | NUR ---
KCL FINISHED. IV FLUSHED. ANSWERS ORIENTATION QUESTIONS APPROPRIATELY. MANAGER OF CREATIVE SERVICES TO COMMAND. BILATERAL LEG STIFFNING. STATES THAT SHE HAS PAIN WHEN I BEND HER KNEE.NOT ABLE TO LIFT ARMS OR LEGS OFF BED. VOICE STILL WEAK. ORIENTED
[2019-12-19] MEDS: PIPERACILLIN-TAZOB 2.25GM 50 ML IV SCH ×4 (06:19→17:33)
--- NOTE | 2019-12-19 07:01 | NUR ---
RECTAL PROBE OUT. REPOSITIONED TO RIGHT SIDE
[2019-12-19 07:21] LABS: Basophils # (auto) 0 10 ^3/uL (0-0.2); Eosinophils # (auto) 0 10 ^3/uL (0-0.8); Lymphocytes # (auto) 1.1 10 ^3/uL (0.4-5.4); Monocytes # (auto) 1.5 10 ^3/uL (0-1.3); Nucleated Red Blood Cells % 0.1 %
[2019-12-19 07:23] LABS: Basophils % (auto) 0.3 % (0.0-2.0); Hematocrit 28.8 % (36.0-46.0); Hemoglobin 9.5 g/dL (12.2-16.2); Lymphocytes % (auto) 6.5 % (10.0-50.0); Mean Corpuscular Hgb Conc. 32.8 g/dL (32.0-36.0); Mean Corpuscular Volume 88.4 fL (80.0-100.0); Monocytes % (auto) 8.7 % (0.0-12.0); Neutrophils % (auto) 84.5 % (37.0-80.0); Red Blood Cells 3.26 10^6/uL (4.0-5.20); White Blood Cell 17.8 10^3/uL (4.4-10.8)
[2019-12-19 07:25] LABS: Platelet Count (auto) 809 10^3/uL (140-450)
[2019-12-19 07:41] LABS: Albumin 2.1 g/dL (3.4-5.0); Calcium 9.7 mg/dL (8.5-10.1); Magnesium 3.2 mg/dL (1.6-2.6)
[2019-12-19 07:45] LABS: BUN/Creatinine Ratio 36.8; Bilirubin, Total 0.4 mg/dL (0.2-1.0); Total Protein 7.1 g/dL (6.4-8.2)
--- NOTE | 2019-12-19 08:00 | NUR ---
Opening Shift Note Assumed care of patient, awake and alert, speak with no voice. No S/S of distress/SOB or pain noted. Patient able to tell me her name, follow direction but still weak, trying to move her hands, will continue to monitor and care. Instructed on POC and to call for assist PRN, will continue to monitor for changes Q1hr and PRN.
--- NOTE | 2019-12-19 09:20 | NUR ---
Desaturation 85-87% (Lowest 78%), mouth care provided, repositioning with high jacobo position, paged RT at the bedside. Patient able to follow direction, able to do deep breathing when telling her to do, lung sound is clear, still weakness, no voice sometimes when she trying to talk. Increased Oxymizer to 15 LPM, O2 saturation 97-98%, will continue to monitor and care. Will keep NPO.
[2019-12-19] MEDS: methylPREDNISolone SOD SUCC 40 MG/ML VL IV SCH ×2 (09:45→22:56)
[2019-12-19] MEDS: PANTOPRAZOLE 40 MG/10 ML VIAL INJ IV SCH (09:45)
[2019-12-19] MEDS: FUROSEMIDE 40 MG/4 ML VIAL IV SCH (09:46)
[2019-12-19] MEDS: ENOXAPARIN SOD 40 MG/0.4 ML SYRINGE SC SCH (09:46)
[2019-12-19] MEDS: MICAFUNGIN SODIUM 100 MG in SODIUM CHL 0.9% 100 ML IV SCH (09:48)
--- NOTE | 2019-12-19 09:59 | NUR ---
Dr. Ugalde at the bedside, RT at the bedside as well. Received order for swallow eval, informed MD that WBC trending up, will keep NPO at this time. MD seen CXR.
[2019-12-19] MEDS: VANCOMYCIN 1GM/250ML 250 ML IV SCH (11:23)
--- NOTE | 2019-12-19 11:38 | NUR ---
Patient awake and alert, let her know that her son called and will call back, patient able to tell me her son name. When patient speaking, her saturation drop as well went to 87-90% take time for back to normal.
--- NOTE | 2019-12-19 12:25 | NUR ---
Dr. Hensley at the bedside, seen and examined patient at this time, informed MD about desaturation and received order for NPO and hold swallow eval until Dr. Fletcher come back (Saturday).
--- NOTE | 2019-12-19 13:40 | NUR ---
Received a call from her son, transferred his call to patient's room, helping with holding phone.
--- NOTE | 2019-12-19 15:40 | NUR ---
Patient just woke up from a nap. Mouth care provided, reposition, sitting up with high jacobo position, elevated feet over pillow, turned the TV for patient. Will continue to monitor and care.
--- NOTE | 2019-12-19 16:10 | NUR ---
His son called and transferred his phone, assisted with hold the phone for patient due to patient still weak.
--- NOTE | 2019-12-19 18:15 | NUR ---
Vital sign stable, no fever noted, on Oxymizer 12 LPM, O2 saturation 94-96%. Desaturation when talking, it went to 90-92% at this time, will continue to monitor and care.
--- NOTE | 2019-12-19 18:31 | NUR ---
RT NOTE PT WAS SEEN BY RT FOR HHN TX. PT TOLERATES WELL VIA MASK. NO ADVERSE REACTION NOTED. CONT ORDERED Addendum: 12/19/19 at 1842 by Carmel Almarza RT Amended: Links added.
[2019-12-19] MEDS ORDERED: FUROSEMIDE 40 MG/4 ML VIAL IV ONE (22:00)
--- NOTE | 2019-12-19 22:02 | NUR ---
RT NOTE PT WAS SEEN BY RT FOR HHN TX. PT TOLERATES WELL VIA MASK. NO ADVERSE REACTION NOTED. CONT ORDERED Addendum: 12/19/19 at 2254 by Carmel Almaraz RT Amended: Links added.
[2019-12-20] VITALS (7 sets, daily range): BP systolic 118–136; BP diastolic 57–73
[2019-12-20] MEDS: ALBUTEROL SULF 2.5 MG/0.5ML(0.5%) NEB SOLN NEB SCH ×6 (01:50→22:04)
[2019-12-20] MEDS: IPRATROPIUM BROM 0.5 MG/2.5ML INH SOL NEB SCH ×6 (01:50→22:04)
--- NOTE | 2019-12-20 01:55 | NUR ---
RT NOTE PT WAS SEEN BY RT FOR HHN TX. PT TOLERATES WELL VIA MASK. NO ADVERSE REACTION NOTED. CONT ORDERED Addendum: 12/20/19 at 0229 by Carmel Almaraz RT Amended: Links added.
[2019-12-20] MEDS: PIPERACILLIN-TAZOB 2.25GM 50 ML IV SCH ×4 (01:58→17:37)
[2019-12-20 05:45] LABS: Basophils # (auto) 0.1 10 ^3/uL (0-0.2); Eosinophils # (auto) 0 10 ^3/uL (0-0.8); Hematocrit 30.6 % (36.0-46.0); Hemoglobin 9.8 g/dL (12.2-16.2); Mean Corpuscular Hgb Conc. 31.9 g/dL (32.0-36.0); Monocytes # (auto) 0.7 10 ^3/uL (0-1.3); Red Cell Distribution Width 16.2 % (11.8-14.3)
[2019-12-20 05:47] LABS: Basophils % (auto) 0.5 % (0.0-2.0); Lymphocytes % (auto) 5.6 % (10.0-50.0); Mean Corpuscular Hemoglobin 28.2 pg (28.0-32.0); Mean Corpuscular Volume 88.3 fL (80.0-100.0); Monocytes % (auto) 3.9 % (0.0-12.0); Neutrophils # (auto) 15.6 10 ^3/uL (1.6-8.6); Red Blood Cells 3.46 10^6/uL (4.0-5.20); White Blood Cell 17.4 10^3/uL (4.4-10.8)
[2019-12-20 06:03] LABS: Potassium 3.4 mmol/L (3.5-5.1)
[2019-12-20 06:11] LABS: BUN/Creatinine Ratio 40.1; Calcium 9.6 mg/dL (8.5-10.1); Magnesium 3.2 mg/dL (1.6-2.6); Phosphorus 4.3 mg/dL (2.5-4.90); Platelet Count (auto) 840 10^3/uL (140-450)
--- NOTE | 2019-12-20 07:45 | NUR ---
Opening Shift Note Assumed care of patient, patient sleepy, open only her eyes when calling her name and touching. No S/S of distress/SOB or pain. Will continue to monitor for changes Q1hr and PRN.
--- NOTE | 2019-12-20 08:56 | NUR ---
Called and left the message to Dr. Beaver for new consultation. Waiting MD to call back.
--- NOTE | 2019-12-20 09:50 | NUR ---
Dr. Hensley at the bedside, seen and examined patient at this time, informed MD that patient has CXR done this morning, patient on Oxymizer 12 and got extra dose of Lasix yesterday, MD will check the Lab and CXR.
[2019-12-20] MEDS: PANTOPRAZOLE 40 MG/10 ML VIAL INJ IV SCH (10:12)
[2019-12-20] MEDS: ENOXAPARIN SOD 30 MG/0.3 ML SYRINGE SC SCH (10:12)
[2019-12-20] MEDS: MICAFUNGIN SODIUM 100 MG in SODIUM CHL 0.9% 100 ML IV SCH (10:12)
[2019-12-20] MEDS: methylPREDNISolone SOD SUCC 40 MG/ML VL IV SCH ×2 (10:13→22:31)
--- NOTE | 2019-12-20 10:15 | NUR ---
Mouth care provided, repositioning as well. While cleaning her mouth, her saturation was 87-88% then went back to 92-94%. Will continue to monitor and care.
--- NOTE | 2019-12-20 10:40 | NUR ---
Dr. Ugalde at the bedside, seen and examined patient at this time, no new order, will report the I/O and O2 saturation in the afternoon.
--- NOTE | 2019-12-20 11:46 | NUR ---
Sekou through , called and talked to Pharmacist, will hold Vancomycin at 12.00PM and pharmacist will re schedule later.
[2019-12-20] MEDS ORDERED: POTASSIUM CHL 20MEQ/100ML 100 ML IV ONE (12:00)
[2019-12-20] MEDS ORDERED: FUROSEMIDE 20 MG/2 ML VIAL IV ONE (12:00)
--- NOTE | 2019-12-20 12:10 | NUR ---
BT 99.6F, partial sponge and cold pack applied, will checked later, patient more awake, no complaining of pain noted, informed patient that her son called and will call back later, patient nodding her head, talking but still no voice.
--- NOTE | 2019-12-20 13:10 | NUR ---
Her son called, transferred his call inside the room and helping with hold phone for patient.
--- NOTE | 2019-12-20 14:10 | NUR ---
Notified Dr. Ugalde that received order for Lasix (per Dr. Hensley), will continue to monitor and care.
--- NOTE | 2019-12-20 15:04 | NUR ---
Her son called and transferred his phone to talk to patient, assisted with holding a phone.
--- NOTE | 2019-12-20 17:50 | NUR ---
Niru APPLIANCE PAINTER AND REFINISHER for Dr. Beaver at the bedside, seen and examined patient at this time, received new order for blood test as ordered, will continue to monitor and care.
[2019-12-20 18:30] LABS: Basophils # (auto) 0.1 10 ^3/uL (0-0.2); Eosinophils # (auto) 0 10 ^3/uL (0-0.8); Mean Corpuscular Volume 88.5 fL (80.0-100.0); Neutrophils # (auto) 15.5 10 ^3/uL (1.6-8.6); White Blood Cell 17.6 10^3/uL (4.4-10.8)
[2019-12-20 18:34] LABS: Basophils % (auto) 0.6 % (0.0-2.0); Hematocrit 31.5 % (36.0-46.0); Hemoglobin 10.4 g/dL (12.2-16.2); Lymphocytes % (auto) 5.6 % (10.0-50.0); Mean Corpuscular Hemoglobin 29.1 pg (28.0-32.0); Mean Corpuscular Hgb Conc. 32.9 g/dL (32.0-36.0); Monocytes % (auto) 5.7 % (0.0-12.0); Neutrophils % (auto) 88.1 % (37.0-80.0); Red Blood Cells 3.56 10^6/uL (4.0-5.20); Red Cell Distribution Width 16.2 % (11.8-14.3)
[2019-12-20 18:41] LABS: Platelet Count (auto) 840 10^3/uL (140-450)
[2019-12-20 18:48] LABS: % Iron Saturation 11.2 % (15-50)
[2019-12-20 18:49] LABS: Albumin 2.4 g/dL (3.4-5.0); Calcium 9.7 mg/dL (8.5-10.1); Potassium 3.4 mmol/L (3.5-5.1)
[2019-12-20 18:57] LABS: BUN/Creatinine Ratio 37.1; Bilirubin, Total 0.6 mg/dL (0.2-1.0); CRP High Sensitivity 5.09 mg/dL (< 0.3); Total Protein 7.4 g/dL (6.4-8.2)
[2019-12-20 19:17] LABS: Ferritin 339.9 ng/mL (10-322)
[2019-12-20] MEDS: LINEZOLID 600MG/300ML 300 ML IV SCH (22:31)
[2019-12-21] VITALS (7 sets, daily range): BP systolic 114–145; BP diastolic 65–77
[2019-12-21] MEDS: PIPERACILLIN-TAZOB 2.25GM 50 ML IV SCH ×4 (00:37→17:36)
[2019-12-21] MEDS: IPRATROPIUM BROM 0.5 MG/2.5ML INH SOL NEB SCH ×6 (02:16→22:58)
[2019-12-21] MEDS: ALBUTEROL SULF 2.5 MG/0.5ML(0.5%) NEB SOLN NEB SCH ×6 (02:16→22:58)
[2019-12-21 05:04] LABS: Eosinophils # (auto) 0 10 ^3/uL (0-0.8); Lymphocytes # (auto) 0.9 10 ^3/uL (0.4-5.4); Lymphocytes % (auto) 5.2 % (10.0-50.0); Monocytes # (auto) 0.9 10 ^3/uL (0-1.3)
[2019-12-21 05:06] LABS: Basophils # (auto) 0 10 ^3/uL (0-0.2); Basophils % (auto) 0.1 % (0.0-2.0); Eosinophils % (auto) 0.1 % (0.0-7.0); Hematocrit 32.1 % (36.0-46.0); Hemoglobin 10.3 g/dL (12.2-16.2); Mean Corpuscular Hemoglobin 28.6 pg (28.0-32.0); Mean Corpuscular Hgb Conc. 32.2 g/dL (32.0-36.0); Mean Corpuscular Volume 88.6 fL (80.0-100.0); Monocytes % (auto) 5.3 % (0.0-12.0); Neutrophils # (auto) 15.7 10 ^3/uL (1.6-8.6); Neutrophils % (auto) 89.3 % (37.0-80.0); Red Blood Cells 3.62 10^6/uL (4.0-5.20); Red Cell Distribution Width 16.4 % (11.8-14.3); White Blood Cell 17.6 10^3/uL (4.4-10.8)
[2019-12-21 05:09] LABS: Platelet Count (auto) 785 10^3/uL (140-450)
[2019-12-21 05:25] LABS: BUN/Creatinine Ratio 36.2; Calcium 9.8 mg/dL (8.5-10.1); Potassium 3.2 mmol/L (3.5-5.1)
--- NOTE | 2019-12-21 09:01 | NUR ---
PATIENTS MIKE KWONG CALLED FOR UPDATE PROVIDED PASSWORD. DISCUSSED PATIENTS STATUS THROUGHOUT THE NIGHT. DISCUSSED PLAN OF CARE. ADDRESSED CONCERNS
[2019-12-21] MEDS: MICAFUNGIN SODIUM 100 MG in SODIUM CHL 0.9% 100 ML IV SCH (09:12)
--- NOTE | 2019-12-21 09:55 | NUR ---
SPOKE WITH DR OCHOA REGARDING MENTAL STATUS CHANGES RECEIVED NEW ORDERS
[2019-12-21] MEDS ORDERED: FUROSEMIDE 20 MG/2 ML VIAL IV SCH (10:00)
[2019-12-21 10:21] LABS: Free T4 (Free Thyroxine) 0.82 ng/dL (0.89-1.76)
[2019-12-21 10:22] LABS: Folate (Folic Acid) 23.92 ng/mL (5.38-24)
--- NOTE | 2019-12-21 10:30 | NUR ---
SUPERVISOR PASTE MIXING AND ROCKY AT BEDSIDE FOR TRANSPORT TO RADIOLOGY FOR CT SCAN OF HEAD PATIENT CONNECTED TO PORTABLE MANUFACTURING PRODUCTION TECHNICIAN AND PORTABLE OXYGEN ON 12L OXYMIZER
--- NOTE | 2019-12-21 10:47 | NUR ---
PATIENT RETURNED FROM RADIOLOGY DEPARTMENT RECONNECTED TO BEDSIDE MONITORS. PATIENT TOLERATED WELL
--- NOTE | 2019-12-21 11:25 | NUR ---
Nutrition Followup Notes Wt: 65.2 kg Pt`s extubated, sleeping, breathing on her own. Pt currently NPO, per RN pt possible swallow eval or alternate nutrition. If EN support indicated consider Jevity 1.2 @ 45 ml/hr per MD approval. Est Energy needs ABW 57 [id number] kcals (20-23 kcal/kgBW), Est Protein needs: 57-68 gms/day (1.0-1.2 gm/kgBW r/t severe hypoalb). Will continue to monitor and reassess prn. LABS: BUN 54H, Creat 1.49H, CO2 34H, Alb 2.4L, GLUC 167H GI: No BM reported today. Last BM reported on 12/10 per RN doc BS: 12 high risk, Please refer to wound assessment report for full details. PES: Altered nutrition related lab values r/t current chronic medical condition aeb severe hypoalbuminemia Partially resolved, pending swallow eval by Speech Therapist: Impaired swallowing r/t current medical condition aeb pt`s intubated sedated with order of NPO Comments Will continue to closely monitor pertinent labs, NPO status and skin status prn. Will followup in 2-3 days 1) Consider alternate nutrition support if pt NPO > 48 hrs. If EN is choice of route consider Jevity 1.2 @ 45 ml/hr per MD approval. 2) Advance diet as medically feasible. 3) Consider prostat 1 packet bid. 4) continue current plan of care
--- NOTE | 2019-12-21 11:40 | NUR ---
DR OCHOA AT BEDSIDE ASSESSED PATIENT, NEW ORDERS PLACED. CALLED PATIENT SON TO DISCUSS PATIENTS CURRENT STATUS. ADDRESSED CONCERNS
[2019-12-21] MEDS ORDERED: Jevity 1.2 Cal/Fiber 1 Liter GT SCH (12:00)
[2019-12-21] MEDS ORDERED: POTASSIUM EFFERVESENT TAB 25 MEQ GT ONE (12:00)
--- NOTE | 2019-12-21 12:14 | NUR ---
PER DR OCHOA, SON VARGHESE FERNANDEZ IS ALLOWED TO COME TO HOSPITAL AND SEE PATIENT TODAY (ONLY) PATIENTS STATUS DECLINING. VARGHESE STATES HE WILL COME THIS AFTERNOON.
[2019-12-21] MEDS: PANTOPRAZOLE 40 MG/10 ML VIAL INJ IV SCH (12:22)
[2019-12-21] MEDS: methylPREDNISolone SOD SUCC 40 MG/ML VL IV SCH (12:22)
[2019-12-21] MEDS: LINEZOLID 600MG/300ML 300 ML IV SCH ×2 (12:22→22:06)
[2019-12-21] MEDS: ENOXAPARIN SOD 30 MG/0.3 ML SYRINGE SC SCH (12:23)
--- NOTE | 2019-12-21 12:35 | NUR ---
IV insertion IV access obtained, via clean sterile technique by inserting 20 gauge catheter at RIGHT FOREARM after 1 attempt(s). IV secured properly. No trauma to site. Patient tolerated well.
--- NOTE | 2019-12-21 13:00 | NUR ---
DR QUEEN AT BEDSIDE DISCUSSED PATIENTS STATUS, NEW ORDERS RECEIVED
--- NOTE | 2019-12-21 15:26 | NUR ---
Nasogastric tube insertion- RIGHT NARE Patient educated on need for NG tube. All questions addressed. NGT inserted per MD order. Placement verified by aspiration of stomach contents, auscultation and chest xray.
--- NOTE | 2019-12-21 16:01 | NUR ---
PATIENTS SON VARGHESE AT BEDSIDE. PATIENTS ACKNOWLEDGED SON, STILL MINIMAL SPEAK NOTED. NODDED HEAD YES AND NO TO SONS QUESTIONS
--- NOTE | 2019-12-21 19:20 | NUR ---
OPENING SHIFT RECEIVED REPORT FROM DAY SHIFT RN. ASSUMED CARE OF PATIENT. PATIENT IN BED RESTING WITH NO SIGNS OR SYMPTOMS OF SOB, PAIN OR DISTRESS. CURRENTLY ON 12L 02 VIA OXYMIZER, 02 SAT - 96%. RIGHT WRIST IV - CLEAN/DRY/INTACT. NY HUNG TO GRAVITY. REPOSITIONED FOR COMFORT. BED IN LOWEST POSITION, SIDE RAILS UP X2. WILL CONTINUE TO MONITOR.
--- NOTE | 2019-12-21 20:10 | NUR ---
RIGHT INTERNAL JUGULAR TLC REMOVED - CATHETER INTACT. DRESSED WITH GAUZE AND TEGADERM.
[2019-12-22] VITALS: BP 151/63
--- NOTE | 2019-12-22 01:40 | NUR ---
SPOKE WITH SON (VARGHESE) PASSWORD VERIFIED. UPDATED SON ON PATIENT STATUS. ALL QUESTIONS AND CONCERNS ADDRESSED AND ANSWERED.
[2019-12-22] MEDS: IPRATROPIUM BROM 0.5 MG/2.5ML INH SOL NEB SCH ×6 (02:28→22:16)
[2019-12-22] MEDS: ALBUTEROL SULF 2.5 MG/0.5ML(0.5%) NEB SOLN NEB SCH ×6 (02:28→22:16)
--- NOTE | 2019-12-22 03:10 | NUR ---
MORNING CARE PERFORMED MORNING CARE WITH CHG WIPES AND WASH CLOTHS TO THE FACE. GOWN CHANGED AND PARTIAL LINEN CHANGED. REPOSITIONED FOR COMFORT. SKIN REASSESSED AT THIS TIME. ORAL AND NY CARE PERFORMED. WILL CONTINUE TO MONITOR.
[2019-12-22 03:47] LABS: Eosinophils # (auto) 0 10 ^3/uL (0-0.8); Eosinophils % (auto) 0.1 % (0.0-7.0); Nucleated Red Blood Cells % 0.1 %; Red Cell Distribution Width 16.3 % (11.8-14.3)
[2019-12-22 03:49] LABS: Basophils # (auto) 0 10 ^3/uL (0-0.2); Basophils % (auto) 0.2 % (0.0-2.0); Hematocrit 32.4 % (36.0-46.0); Hemoglobin 10.2 g/dL (12.2-16.2); Lymphocytes # (auto) 1.7 10 ^3/uL (0.4-5.4); Lymphocytes % (auto) 8.9 % (10.0-50.0); Mean Corpuscular Hemoglobin 28.1 pg (28.0-32.0); Mean Corpuscular Hgb Conc. 31.5 g/dL (32.0-36.0); Mean Corpuscular Volume 89.1 fL (80.0-100.0); Monocytes # (auto) 1.5 10 ^3/uL (0-1.3); Monocytes % (auto) 8.1 % (0.0-12.0); Neutrophils # (auto) 15.8 10 ^3/uL (1.6-8.6); Neutrophils % (auto) 82.7 % (37.0-80.0); Platelet Count (auto) 720 10^3/uL (140-450); Red Blood Cells 3.63 10^6/uL (4.0-5.20); White Blood Cell 19.1 10^3/uL (4.4-10.8)
[2019-12-22 04:00] VITALS: BP 121/58
[2019-12-22 04:07] LABS: BUN/Creatinine Ratio 30.7; Calcium 9.6 mg/dL (8.5-10.1)
--- NOTE | 2019-12-22 05:25 | NUR ---
PAGED HOSPITALIST - AWAITING CALL BACK.
--- NOTE | 2019-12-22 05:54 | NUR ---
HOSPITALIST CALLED BACK MADE AWARE OF POTASSIUM - 3.0; RECEIVED ORDERS TO POTASSIUM EFFERVESCENT 40 MEQ. NOTED AND CARRIED OUT Addendum: 12/22/19 at 0644 by STAN MALONE RN RN POTASSIUM EFFERVESCENT 25MEQ.
[2019-12-22] MEDS ORDERED: POTASSIUM CHL 20 Meq TABLET PO ONE (06:00)
[2019-12-22] MEDS: PIPERACILLIN-TAZOB 2.25GM 50 ML IV SCH ×2 (06:21)
[2019-12-22] MEDS ORDERED: POTASSIUM EFFERVESENT TAB 25 MEQ PO ONE (06:45)
--- NOTE | 2019-12-22 07:42 | NUR ---
END OF SHIFT REPORT GIVEN TO DAY SHIFT RN. CARE ENDORSED.
[2019-12-22 08:00] VITALS: BP 130/66
--- NOTE | 2019-12-22 08:00 | NUR ---
Opening Shift Note Assumed care of patient. No S/S of distress/SOB or pain. Jevity running at 15 ml /hr via RT nare, no residuals noted, increased feeding to 30mls/hr. See interventions for complete assessment. Bed locked on low position, side rails up x2, bed alarms on at all times, call glover within reach, will continue to monitor for changes Q1hr and PRN.
--- NOTE | 2019-12-22 09:00 | NUR ---
Received call from patient's son Patrice who's able to provide password. Updated on patient's status and POC, verbalized understanding. All questions and concerns addressed.
[2019-12-22] MEDS: PANTOPRAZOLE 40 MG/10 ML VIAL INJ IV SCH (09:39)
[2019-12-22] MEDS: ENOXAPARIN SOD 30 MG/0.3 ML SYRINGE SC SCH (09:39)
[2019-12-22] MEDS: MICAFUNGIN SODIUM 100 MG in SODIUM CHL 0.9% 100 ML IV SCH (09:40)
[2019-12-22] MEDS: LINEZOLID 600MG/300ML 300 ML IV SCH ×2 (09:40→21:43)
[2019-12-22] MEDS ORDERED: Jevity 1.2 Cal/Fiber 1 Liter GT SCH (11:15)
[2019-12-22] MEDS ORDERED: POTASSIUM EFFERVESENT TAB 25 MEQ GT ONE (11:15)
--- NOTE | 2019-12-22 11:15 | NUR ---
Dr Gaitan at bedside, updated on patient's status. Patient seen and examined. Will carry out new orders.
--- NOTE | 2019-12-22 11:20 | NUR ---
WOUND CARE NOTE: IN TO SEE PATIENT AT TIME FOR SKIN INTEGRITY MONITORING. PATIENT'S CURRENT JAYDEN SCORE IS 12. SHE CONTINUES TO BE MAX ASSIST FOR ALL OF HER ADL'S, INCLUDING TURNING/REPOSITIONING. BONY PROMINENCES ARE PINK AND BLANCHABLE. PATIENT CONTINUES TO HAVE FADING ECCHYMOSIS TO BILATERAL CHEEK THAT WAS RENDERED WHEN ET SECUREMENT DEVICE WAS REMOVED FROM EACH CHEEK. SKIN REMAINS INTACT, ECCHYMOSIS IS FADING TO EACH CHEEK. NO PAIN NOTED BY PATIENT TO THE AREA. SKIN/WOUND CARE PLAN UPDATED. RECOMMEND: CONTINUATION WITH ALL WOUND CARE ORDERS PREVIOUSLY PRESCRIBED BY MD. WOUND CARE TEAM WILL CONTINUE TO MONITOR. Addendum: 12/22/19 at 1434 by Corrine Stokes RN Amended: Links added.
--- NOTE | 2019-12-22 11:40 | NUR ---
Patient had large amount of soft, dark brown bowel movement. Perineal care rendered.. Skin integrity assessed for any changes. Linens and patient's gown changed. Patient repositioned for comfort.
[2019-12-22] MEDS ORDERED: MEROPENEM 1GM IVPB 100 ML IV ONE (11:45)
[2019-12-22 12:00] VITALS: BP 121/62
[2019-12-22] MEDS: FREE WATER GT SCH ×3 (12:27→23:53)
--- NOTE | 2019-12-22 14:00 | NUR ---
Ceballos catheter insertion Patient assessed and determined to be in need of ceballos catheter. Order obtained from MD. Patient educated on catheter and reason for insertion. All questions answered. Ceballos catheter 16 guage Macedonian inserted with clean sterile technique. Patient tolerated well.
[2019-12-22 16:00] VITALS: BP 123/60
--- NOTE | 2019-12-22 16:30 | NUR ---
Patient saturation 87% to 89% at 12 LPM oxygen via oxymizer. Terrie RT at beside, switch patient to 9 LPM oxygen via simple mask. Saturation 93% to 96%. Will continue to monitor.
--- NOTE | 2019-12-22 19:30 | NUR ---
OPENING NOTE REPORT RECEIVED FROM YOVANA WU PATIENT IS SLEEPING, OPENS EYES TO NAME. PATIENT UNABLE TO FOLLOW SIMPLE COMMANDS AT THIS TIME. PATIENT CONNECTED TO ALL CONTINUOUS MONITORS, HEART RATE IN LOW 100'S, SPO2 AT 95% ON 9L SIMPLE FACE MASK. RIGHT NARE NGT IN PLACE RUNNING JEVITY AT 30ML/HR. PLACEMENT CHECKED VIA AUSCULTATION. RESIDUAL CHECKED, NONE NOTED. JEVITY FEEDINGS NOW AT GOAL OF 40ML/HR. YN IN PLACE DRAINING CLEAR YELLOW URINE. SCD'S ON BILATERALLY. PHYSICAL ASSESSMENT DONE-SEE INTERVENTIONS. WILL TURN Q2H. FALL PRECAUTIONS IN PLACE, CALL LIGHT WITHIN REACH.
[2019-12-22 20:00] VITALS: BP 114/56
[2019-12-22] MEDS: MEROPENEM 1GM IVPB 100 ML IV SCH (20:09)
--- NOTE | 2019-12-22 21:15 | NUR ---
SON CALLED VARGHESE, PATIENTS SON CALLED. CORRECT PASSWORD PROVIDED BY VARGHESE. UPDATED ON PATIENT STATUS.
[2019-12-23] VITALS (7 sets, daily range): BP systolic 106–133; BP diastolic 49–66
--- NOTE | 2019-12-23 02:00 | NUR ---
AM CARES PATIENT PROVIDED TOTAL BED BATH. CHG WIPES USED. WARM SOAPY WATER FOR PATIENTS FACE. COMPLETE GOWN AND LINEN CHANGE GIVEN
[2019-12-23] MEDS: IPRATROPIUM BROM 0.5 MG/2.5ML INH SOL NEB SCH ×6 (02:12→23:03)
[2019-12-23] MEDS: ALBUTEROL SULF 2.5 MG/0.5ML(0.5%) NEB SOLN NEB SCH ×6 (02:12→23:03)
[2019-12-23 03:26] LABS: Eosinophils # (auto) 0.2 10 ^3/uL (0-0.8); Monocytes # (auto) 1.4 10 ^3/uL (0-1.3)
[2019-12-23 03:28] LABS: Basophils # (auto) 0.1 10 ^3/uL (0-0.2); Basophils % (auto) 0.5 % (0.0-2.0); Eosinophils % (auto) 0.9 % (0.0-7.0); Hematocrit 32.1 % (36.0-46.0); Hemoglobin 10.1 g/dL (12.2-16.2); Lymphocytes # (auto) 1.9 10 ^3/uL (0.4-5.4); Lymphocytes % (auto) 9.8 % (10.0-50.0); Mean Corpuscular Hemoglobin 28.7 pg (28.0-32.0); Mean Corpuscular Hgb Conc. 31.6 g/dL (32.0-36.0); Mean Corpuscular Volume 90.7 fL (80.0-100.0); Neutrophils # (auto) 15.8 10 ^3/uL (1.6-8.6); Neutrophils % (auto) 81.8 % (37.0-80.0); Nucleated Red Blood Cells % 0.1 %; Platelet Count (auto) 695 10^3/uL (140-450); Red Blood Cells 3.54 10^6/uL (4.0-5.20); Red Cell Distribution Width 16.4 % (11.8-14.3); White Blood Cell 19.3 10^3/uL (4.4-10.8)
[2019-12-23 03:46] LABS: Albumin 2.2 g/dL (3.4-5.0); Potassium 3.4 mmol/L (3.5-5.1)
[2019-12-23 03:50] LABS: BUN/Creatinine Ratio 28.7; Bilirubin, Total 0.4 mg/dL (0.2-1.0); Total Protein 6.4 g/dL (6.4-8.2)
[2019-12-23] MEDS: MEROPENEM 1GM IVPB 100 ML IV SCH ×2 (04:00→16:46)
[2019-12-23] MEDS: FREE WATER GT SCH ×3 (05:51→17:43)
--- NOTE | 2019-12-23 06:30 | NUR ---
BM PATIENT HAD LARGE LOOSE BROWN BM. PATIENT CLEANED WITH WARM SOAPY WASH CLOTHS. NEW CHUX PLACED AND NEW GOWN PLACED ON PATIENT.
--- NOTE | 2019-12-23 07:22 | NUR ---
CLOSING PATIENT SLEEPING, NO S/S OF DISTRESS. PATIENT CONNECTED TO ALL MONITORS. PATIENT STILL ON 9L SIMPLE MASK, TOLERATED WELL ALL NIGHT. CARE ENDORSED TO DAYSHIFT BRYCE DOBSON.
--- NOTE | 2019-12-23 07:45 | NUR ---
Opening Shift Note Assumed care of patient. No S/S of distress/SOB or pain. See interventions for complete assessment. Bed locked on low position, side rails up x2, bed alarms on at all times, call glover within reach, instructed on POC and to call for assist PRN, will continue to monitor for changes Q1hr and PRN.
[2019-12-23] MEDS: PANTOPRAZOLE 40 MG/10 ML VIAL INJ IV SCH (09:31)
[2019-12-23] MEDS: ENOXAPARIN SOD 30 MG/0.3 ML SYRINGE SC SCH (09:31)
[2019-12-23] MEDS: LINEZOLID 600MG/300ML 300 ML IV SCH ×2 (09:31→22:00)
[2019-12-23] MEDS: MICAFUNGIN SODIUM 100 MG in SODIUM CHL 0.9% 100 ML IV SCH (09:31)
--- NOTE | 2019-12-23 09:40 | NUR ---
Received call from patient's son Patrice who's able to provide password. Updated on patient's status and POC, verbalized understanding. All questions and concerns addressed.
--- NOTE | 2019-12-23 10:48 | NUR ---
Patient had medium amount of dark brown soft stool, given perineal care. Skin integrity assessed for any changes. Linens changed. Patient repositioned for comfort.
--- NOTE | 2019-12-23 11:44 | NUR ---
Dr Gaitan at bedside, updated on patient's status. Patient seen and examined. Will carry out new order.
[2019-12-23] MEDS: D5W/SOD CHL 0.9%/KCL 40MEQ 1,000 ML IV SCH (12:58)
--- NOTE | 2019-12-23 15:06 | NUR ---
Nutrition Followup Notes Wt: 59.6 kg Pt`s sleeping with no family by bedside. pt is currently NPO with EN support with Jevity 1.2 @ 40 ml./hr provding 1152 kcals and 52 gm proteins. Est Energy needs ABW 57 [id number] kcals (20-23 kcal/kgBW), Est Protein needs: 57-68 gms/day (1.0-1.2 gm/kgBW r/t severe hypoalb). Will continue to monitor and reassess prn. LABS: BUN 37 H, CREAT 1.29 H, NA 151 H, ALB 2.2 L, GLU 158 H GI: Pt had 2 BM today per RN doc BS: 12 high risk, Please refer to wound assessment report for full details. PES: Altered nutrition related lab values r/t current chronic medical condition aeb severe hypoalbuminemia Partially resolved, pending swallow eval by Speech Therapist: Impaired swallowing r/t current medical condition aeb pt`s intubated sedated with order of NPO Comments Will continue to closely monitor pertinent labs, NPO status and skin status prn. Will followup in 2-3 days 1) Advance diet as medically feasible. 3) Consider prostat 1 packet bid. 4) continue current plan of care
--- NOTE | 2019-12-23 16:51 | NUR ---
Dr Ugalde at bedside, updated on patient's status. Patient seen and examined. Will carry out new orders.
[2019-12-24] MEDS: ALBUTEROL SULF 2.5 MG/0.5ML(0.5%) NEB SOLN NEB SCH ×6 (02:00→22:12)
[2019-12-24] MEDS: IPRATROPIUM BROM 0.5 MG/2.5ML INH SOL NEB SCH ×6 (02:00→22:12)
[2019-12-24 04:00] VITALS: BP 113/55
[2019-12-24] MEDS: MEROPENEM 1GM IVPB 100 ML IV SCH ×2 (04:00→15:36)
[2019-12-24 04:28] LABS: Basophils # (auto) 0 10 ^3/uL (0-0.2); Basophils % (auto) 0.3 % (0.0-2.0); Eosinophils # (auto) 0.6 10 ^3/uL (0-0.8); Eosinophils % (auto) 3.9 % (0.0-7.0); Hematocrit 31.6 % (36.0-46.0); Hemoglobin 9.6 g/dL (12.2-16.2); Lymphocytes # (auto) 1.5 10 ^3/uL (0.4-5.4); Lymphocytes % (auto) 10.1 % (10.0-50.0); Mean Corpuscular Hemoglobin 27.8 pg (28.0-32.0); Mean Corpuscular Hgb Conc. 30.4 g/dL (32.0-36.0); Mean Corpuscular Volume 91.3 fL (80.0-100.0); Monocytes # (auto) 0.9 10 ^3/uL (0-1.3); Monocytes % (auto) 6.2 % (0.0-12.0); Neutrophils # (auto) 12.1 10 ^3/uL (1.6-8.6); Neutrophils % (auto) 79.5 % (37.0-80.0); Platelet Count (auto) 550 10^3/uL (140-450); Red Blood Cells 3.46 10^6/uL (4.0-5.20); Red Cell Distribution Width 16.7 % (11.8-14.3); White Blood Cell 15.3 10^3/uL (4.4-10.8)
[2019-12-24 04:55] LABS: Calcium 8.8 mg/dL (8.5-10.1); Potassium 3.8 mmol/L (3.5-5.1)
[2019-12-24 04:57] LABS: BUN/Creatinine Ratio 25.7
[2019-12-24] MEDS: FREE WATER GT SCH ×5 (06:24→23:48)
--- NOTE | 2019-12-24 07:30 | NUR ---
RECEIVED PATIENT SEMI FOWLERS IN BED, O2 AT 5L BY THE OXYMIZER, [place] TO GRAVITY, SCD'S TO BISHOP LEGS, NO VERBAL RESPONSE WHEN NAME CALLED AND WILL NOT FOLLOW COMMANDS, D5.9 WITH 40MEQ OF KCL INFUSING INTO THE RFA AT 50ML/HR BY THE IV PUMP, JEVITY AT 40ML/HR INFUSING INTO THE RT SNARE NGT BY THE FEEDING PUMP,
[2019-12-24 07:40] VITALS: BP 130/69
--- NOTE | 2019-12-24 08:30 | NUR ---
PATIENT IS NPO, HAS A RT SNARE NGT WITH JEVITY AT 40ML/HR INFUSING BY THE FEEDING PUMP, PLACEMENT CHECKED AND POSITIVE, NO RESIDUAL
--- NOTE | 2019-12-24 09:00 | NUR ---
SON (VARGHESE) CALLED TO INQUIRE ABOUT THE PATIENT
--- NOTE | 2019-12-24 09:30 | NUR ---
EXPLAIN MEDICATIONS TO THE PATIENT REGARDING THE DOSAGE, USAGE AND THE SIDE EFFECTS, EVEN THOUGH THE PATIENT DOESN'T APPEAR TO UNDERSTAND, MEDS GIVEN ORDERED
[2019-12-24] MEDS: MICAFUNGIN SODIUM 100 MG in SODIUM CHL 0.9% 100 ML IV SCH (09:31)
[2019-12-24] MEDS: PANTOPRAZOLE 40 MG/10 ML VIAL INJ IV SCH (09:32)
[2019-12-24] MEDS: ENOXAPARIN SOD 30 MG/0.3 ML SYRINGE SC SCH (09:32)
--- NOTE | 2019-12-24 10:30 | NUR ---
NO CHANGE IN CONDITION STILL NO RESPONSE WHEN TALKING TO THE PATIENT, WILL PULL HER ARMS BACK WHEN YOU STRAIGHTEN THEM OUT
[2019-12-24] MEDS: LINEZOLID 600MG/300ML 300 ML IV SCH ×2 (10:47→21:16)
--- NOTE | 2019-12-24 11:20 | NUR ---
DR QUEEN AT THE BEDSIDE, STATES PATIENTS RESPIRATORY STATUS IS DONG GOOD
[2019-12-24 11:50] VITALS: BP 134/60
--- NOTE | 2019-12-24 11:50 | NUR ---
SON TRIED TO TALK TO THE PATIENT ON THE PHONE BUT THERE WAS NO VERBAL RESPONSE, SHE DID MOVE HER ARMS A LITTLE
--- NOTE | 2019-12-24 12:00 | NUR ---
DR ROBLESHA IN TO SEE THE PATIENT AND ORDERED A CT OF THE HEAD
--- NOTE | 2019-12-24 12:30 | NUR ---
PATIENT TAKEN DOWN TO X-RAY FOR CT OF THE HEAD BY THE BED
--- NOTE | 2019-12-24 13:14 | NUR ---
CHECKED NGT TUBE AND POSITIVE PLACEMENT AFTER PATIENT CAME BACK FROM X-RAY
[2019-12-24] MEDS: D5W/SOD CHL 0.9%/KCL 40MEQ 1,000 ML IV SCH (14:01)
--- NOTE | 2019-12-24 14:30 | NUR ---
RT NOTE: O2 TITRATED DOWN TO 3LPM FROM 5LPM ON OXYMIZER. RN DILIP AWARE. PT. TOLERATING WELL. POX 98%. WILL CONTINUE TO MONITOR.
[2019-12-24 15:40] VITALS: BP 127/56
--- NOTE | 2019-12-24 15:55 | NUR ---
O2 SAT 97% NO DISTRESS NOT , TURNED 02 TO 2L AND CONTINUE TO MONITOR
--- NOTE | 2019-12-24 17:00 | NUR ---
TALK TO SON REGARDING THE PATIENT CONDITION, HE CALLS EVERY 3 HOURS TO CHECK ON HER
--- NOTE | 2019-12-24 18:17 | NUR ---
RT NOTE PT WAS SEEN BY RT FOR HHN TX. PT TOLERATES WELL VIA MASK. NO ADVERSE REACTION NOTED. PT WAS FOUND ON 2L OXYMIZER WITH SATS AT 98%. POST TX PT WAS PLACED ON 2L NASAL CANNULA WITH HUMIDIFIER. RN DILIP NOTIFIED. CONT ORDERED Addendum: 12/24/19 at 1910 by Carmel Almaraz RT Amended: Links added.
--- NOTE | 2019-12-24 18:20 | NUR ---
SPOKE WITH RT ABOUT TAKING THE PATIENT OFF THE OXYMIZER AND PLACING HER ON N/C, WHICH SHE DID AT 2L, THE PATIENT O2 SAT HAS BEEN RUINING 99%, STILL NO VERBAL RESPONSE BUT MOVES HER ARMS WHEN YOU TOUCH HER, NGT WITH JEVITY AT 40ML/HR INFUSING BY THE FEEDING PUMP INTO THE RT NARES, [place] TO GRAVITY, SCD'S TO BISHOP LEGS, D5.9 WITH 40MEQ POTASSIUM INFUSING INTO THE RFA AT 50ML/HR BY THE IV PUMP, WILL CONTINUE TO MONITOR AND GIVE REPORT TOT HE NEXT SHIFT
[2019-12-24 19:14] VITALS: BP 127/56
[2019-12-24 20:00] VITALS: BP 125/61
--- NOTE | 2019-12-24 20:00 | NUR ---
SHIFT OPENING NOTE RECEIVED PATIENT WITH EYES CLOSED. WITHDRAWALS TO PAIN, DOES NOT RESPOND TO VERBAL STIMULI, DOES NOT FOLLOW COMMANDS. NG TUBE TO RIGHT NARE INFUSING JEVITY AT 40 ML/H. 5 ML OF RESIDUALS NOTED. NY CATH DRAINING YELLOW URINE TO GRAVITY. INFUSING FLUIDS AT 50 ML/H. PHYSICAL ASSESSMENT COMPLETED, SEE INTERVENTIONS. INSTRUCTED ON POC AND TO CALL FOR ASSIST NEEDED. BED IS IN THE LOWEST POSITION WITH SIDE RAILS UP X2, CALL LIGHT IS WITHIN REACH.
--- NOTE | 2019-12-24 22:07 | NUR ---
RT NOTE PT WAS SEEN BY RT FOR HHN TX. PT TOLERATES WELL VIA MASK. NO ADVERSE REACTION NOTED CONT ORDERED Addendum: 12/24/19 at 2226 by Carmel Almaraz RT Amended: Links added.
[2019-12-25 00:17] VITALS: BP 129/63
--- NOTE | 2019-12-25 02:00 | NUR ---
RT NOTE PT WAS SEEN BY RT FOR HHN TX. PT TOLERATES WELL VIA MASK. NO ADVERSE REACTION NOTED . CONT ORDERED Addendum: 12/25/19 at 0242 by Carmel Almaraz RT Amended: Links added.
[2019-12-25] MEDS: ALBUTEROL SULF 2.5 MG/0.5ML(0.5%) NEB SOLN NEB SCH ×6 (02:10→22:04)
[2019-12-25] MEDS: IPRATROPIUM BROM 0.5 MG/2.5ML INH SOL NEB SCH ×6 (02:10→22:04)
[2019-12-25] MEDS: D5W/SOD CHL 0.9%/KCL 40MEQ 1,000 ML IV SCH (03:30)
[2019-12-25 04:00] VITALS: BP 133/60
[2019-12-25 04:03] LABS: Basophils # (auto) 0 10 ^3/uL (0-0.2); Basophils % (auto) 0.2 % (0.0-2.0); Eosinophils # (auto) 0.7 10 ^3/uL (0-0.8); Eosinophils % (auto) 4.4 % (0.0-7.0); Hematocrit 29.2 % (36.0-46.0); Hemoglobin 9.3 g/dL (12.2-16.2); Lymphocytes # (auto) 1.4 10 ^3/uL (0.4-5.4); Lymphocytes % (auto) 7.9 % (10.0-50.0); Mean Corpuscular Hemoglobin 29.1 pg (28.0-32.0); Mean Corpuscular Hgb Conc. 31.8 g/dL (32.0-36.0); Mean Corpuscular Volume 91.5 fL (80.0-100.0); Monocytes # (auto) 0.9 10 ^3/uL (0-1.3); Monocytes % (auto) 5.3 % (0.0-12.0); Neutrophils # (auto) 14.1 10 ^3/uL (1.6-8.6); Neutrophils % (auto) 82.2 % (37.0-80.0); Platelet Count (auto) 452 10^3/uL (140-450); Red Blood Cells 3.18 10^6/uL (4.0-5.20); Red Cell Distribution Width 16.7 % (11.8-14.3); White Blood Cell 17.1 10^3/uL (4.4-10.8)
[2019-12-25 04:21] LABS: Calcium 8.6 mg/dL (8.5-10.1); Potassium 4.3 mmol/L (3.5-5.1)
[2019-12-25 04:25] LABS: BUN/Creatinine Ratio 25.3
[2019-12-25] MEDS: MEROPENEM 1GM IVPB 100 ML IV SCH ×2 (05:27→15:31)
[2019-12-25] MEDS: FREE WATER GT SCH ×3 (05:28→17:45)
--- NOTE | 2019-12-25 06:15 | NUR ---
MORNING HYGIENE CARE FULL BED BATH PERFORMED WITH CHG WIPES AND WARM SOAPY WASH CLOTHES. GOWN CHANGED. PARTIAL LINEN CHANGED. PATIENT REPOSITIONED FOR COMFORT. TOLERATED IT WELL.
--- NOTE | 2019-12-25 07:10 | NUR ---
END OF SHIFT REPORT GIVEN AND CARE ENDORSED TO DILIP WU.
--- NOTE | 2019-12-25 07:30 | NUR ---
RECEIVED PATIENT SITTING UP IN THE BED, O2 AT 2L BY THE N/C, NO VERBAL RESPONSE BUT MOVES HER ARMS WHEN YOU TALK TO HER, NGT TO THE RT NARES, PLACEMENT CHECKED BY AUSCULTATION AND PATENT, JEVITY INFUSING INTO THE NGT BY THE FEEDING PUMP AT 40ML/HR, D5.9 WITH 40MEQ OF KCL INFUSING INTO THE RFA AT 50ML/HR BY THE IV PUMP, [place] TO GRAVITY, SCD'S TO BISHOP LEGS
[2019-12-25 07:45] VITALS: BP 131/65
--- NOTE | 2019-12-25 08:15 | NUR ---
PATIENT HAD A LARGE LIQUID BM , BUTTOCKS WASHED AND CLEANED AND Z-GUARD APPLIED FOR PROTECTION, FEET ELEVATED ON PILLOWS TO RELIEVE PRESSURE TO THE HEELS
--- NOTE | 2019-12-25 09:20 | NUR ---
SON CALLED AND INQUIRED ABOUT THE PATIENT
[2019-12-25] MEDS: ENOXAPARIN SOD 30 MG/0.3 ML SYRINGE SC SCH (10:17)
[2019-12-25] MEDS: PANTOPRAZOLE 40 MG/10 ML VIAL INJ IV SCH (10:17)
[2019-12-25] MEDS: LINEZOLID 600MG/300ML 300 ML IV SCH ×2 (10:17→22:41)
--- NOTE | 2019-12-25 10:25 | NUR ---
EXPLAIN MEDICATIONS TO THE PATIENT REGARDING THE DOSAGE, USAGE AND THE SIDE EFFECTS, EVEN THOUGH PATIENT IS UNABLE TO UNDERSTAND MEDS WERE GIVEN ORDERED
--- NOTE | 2019-12-25 11:05 | NUR ---
DR OCHOA INTO SEE THE PATIENT AND ORDERED A NEURO CONSULT AND TO STOP THE IV FLUIDS
[2019-12-25 11:40] VITALS: BP 132/67
--- NOTE | 2019-12-25 12:00 | NUR ---
NO CHANGE IN PATIENT'S CONDITION
[2019-12-25] MEDS: MICAFUNGIN SODIUM 100 MG in SODIUM CHL 0.9% 100 ML IV SCH (12:27)
--- NOTE | 2019-12-25 13:10 | NUR ---
NO CHANGE PATIENT, PATIENT LYING IN BED WITH EYES CLOSED, BUT WITH DRAWS TO PAIN
--- NOTE | 2019-12-25 14:37 | NUR ---
SON CALLED AND TALK TO THE MOM OVER THE PHONE EVEN THOUGH SHE IS NOT RESPONSIVE, SHE MOVED HER HEAD AND HER ARM
--- NOTE | 2019-12-25 15:09 | NUR ---
MIDLINE 18G PLACED TO THE DANIEL
--- NOTE | 2019-12-25 15:12 | NUR ---
Midline Placement: Patient educated on need for midline placement. All risks and benefits explained and all questions and concerns addresses prior to procedure. 18g/10cm midline inserted via right cephalic vein using Ultrasound. Sterile technique utilized. Blood return obtained from lumen and flushed easily with NS using proper technique. Midline secured with saline lock; biodisc and occlusive dressing applied. Primary RN notified. Midline lot #[id number]
[2019-12-25 15:40] VITALS: BP 130/65
--- NOTE | 2019-12-25 15:41 | NUR ---
REMOVED 20G FROM THE RFA INTACT AND PATENT, DRESSING APPLIED
--- NOTE | 2019-12-25 15:51 | NUR ---
Nutrition Followup Notes Wt: 59.6 kg Pt`s sleeping with no family by bedside. pt is currently NPO with EN support with Jevity 1.2 @ 40 ml./hr provding 1152 kcals and 52 gm proteins. Est Energy needs ABW 57 [id number] kcals (20-23 kcal/kgBW), Est Protein needs: 57-68 gms/day (1.0-1.2 gm/kgBW r/t severe hypoalb). Will continue to monitor and reassess prn. LABS: BUN 23 H, GLU 161 H, ALB 2.2 L, GI: Pt had 1 BM yesterday per RN doc BS: 12 high risk, Please refer to wound assessment report for full details. PES: Altered nutrition related lab values r/t current chronic medical condition aeb severe hypoalbuminemia Partially resolved, pending swallow eval by Speech Therapist: Impaired swallowing r/t current medical condition aeb pt`s intubated sedated with order of NPO Comments Will continue to closely monitor pertinent labs, NPO status and skin status prn. Will followup in 2-3 days 1) Advance diet as medically feasible. 3) Consider prostat 1 packet bid. 4) continue current plan of care
--- NOTE | 2019-12-25 16:45 | NUR ---
NO CHANGE IN CONDITION
--- NOTE | 2019-12-25 17:20 | NUR ---
SON CALLED TO INQUIRE ABOUT THE PATIENT
--- NOTE | 2019-12-25 18:20 | NUR ---
NO CHANGE IN CONDITION, PATIENT WILL MOVE HER ARMS WHEN WE TOUCH OR MOVE HER ,BUT NO VERBAL RESPONSE, MIDLINE TO THE DANIEL WITH ANTIBIOTICS INFUSING BY THE IV PUMP, [place] TO GRAVITY, O2 AT 2L BY N/C, SCD'S TO BISHOP LEGS,JEVITY AT 40ML/HR INFUSING INTO THE RT SNARES NGT BY THE FEEDING PUMP, NO SIGNIFICANT CHANGE, DURING THE DAY, WILL CONTINUE TO MONITOR AND GIVE REPORT TO THE NEXT SHIFT
--- NOTE | 2019-12-25 18:31 | NUR ---
RT NOTE PT WAS SEEN BY RT FOR HHN TX. PT TOLERATES WELL VIA MASK. NO ADVERSE REACTION NOTED. CONT ORDERED Addendum: 12/25/19 at 1927 by Carmel Almaraz RT Amended: Links added.
[2019-12-25 20:00] VITALS: BP 124/65
--- NOTE | 2019-12-25 22:02 | NUR ---
RT NOTE PT WAS SEEN BY RT FOR HHN TX. PT TOLERATES WELL VIA MASK. NO ADVERSE REACTION NOTED. CONT ORDERED Addendum: 12/25/19 at 2212 by Carmel Almaraz RT Amended: Links added.
[2019-12-26] VITALS: BP 126/54
--- NOTE | 2019-12-26 02:12 | NUR ---
No changes since start of shift. Son called at 2300, held phone to pt's ear. Pt lifted eyebrows with eyes closed and breathing change noted while son told pt jolynn. No S/S of distress. Will continue to monitor.
--- NOTE | 2019-12-26 02:34 | NUR ---
RT NOTE PT WAS SEEN BY RT FOR HHN TX. PT TOLERATES WELL VIA MASK. NO ADVERSE REACTION NOTED. CONT ORDERED Addendum: 12/26/19 at 0240 by Carmel Almaraz RT Amended: Links added.
[2019-12-26] MEDS: IPRATROPIUM BROM 0.5 MG/2.5ML INH SOL NEB SCH ×6 (02:36→22:12)
[2019-12-26] MEDS: ALBUTEROL SULF 2.5 MG/0.5ML(0.5%) NEB SOLN NEB SCH ×6 (02:36→22:12)
[2019-12-26 04:00] VITALS: BP 132/64
[2019-12-26] MEDS: MEROPENEM 1GM IVPB 100 ML IV SCH ×2 (05:04→15:31)
[2019-12-26] MEDS: FREE WATER GT SCH ×4 (06:00→19:00)
[2019-12-26 08:00] VITALS: BP 141/67
--- NOTE | 2019-12-26 08:15 | NUR ---
Opening Shift Note Assumed care of patient, laying in bed eyes closed. No S/S of distress/SOB or pain. Se interventions for complete assessment. Bed locked on low position, side rails up x2, bed alarms on at all times, will continue to monitor for changes Q1hr and PRN.
--- NOTE | 2019-12-26 09:03 | NUR ---
Received call from patient's son Patrice who's able to provide password. Updated on patient's status and POC, verbalized understanding. All questions and concerns addressed.
[2019-12-26 09:15] LABS: Basophils # (auto) 0.1 10 ^3/uL (0-0.2); Basophils % (auto) 0.7 % (0.0-2.0); Eosinophils # (auto) 0.5 10 ^3/uL (0-0.8); Eosinophils % (auto) 3.4 % (0.0-7.0); Hematocrit 28.4 % (36.0-46.0); Hemoglobin 8.8 g/dL (12.2-16.2); Lymphocytes # (auto) 1.3 10 ^3/uL (0.4-5.4); Lymphocytes % (auto) 8.8 % (10.0-50.0); Mean Corpuscular Hemoglobin 28.3 pg (28.0-32.0); Mean Corpuscular Hgb Conc. 31.1 g/dL (32.0-36.0); Mean Corpuscular Volume 90.9 fL (80.0-100.0); Monocytes # (auto) 0.9 10 ^3/uL (0-1.3); Monocytes % (auto) 6.1 % (0.0-12.0); Neutrophils # (auto) 11.5 10 ^3/uL (1.6-8.6); Platelet Count (auto) 372 10^3/uL (140-450); Red Blood Cells 3.12 10^6/uL (4.0-5.20); Red Cell Distribution Width 16.7 % (11.8-14.3); White Blood Cell 14.3 10^3/uL (4.4-10.8)
[2019-12-26 09:26] LABS: BUN/Creatinine Ratio 28.8; Calcium 8.5 mg/dL (8.5-10.1); Potassium 4.1 mmol/L (3.5-5.1)
[2019-12-26] MEDS: ENOXAPARIN SOD 30 MG/0.3 ML SYRINGE SC SCH (09:53)
[2019-12-26] MEDS: LINEZOLID 600MG/300ML 300 ML IV SCH ×2 (09:53→21:26)
[2019-12-26] MEDS: PANTOPRAZOLE 40 MG/10 ML VIAL INJ IV SCH (09:53)
[2019-12-26] MEDS: MICAFUNGIN SODIUM 100 MG in SODIUM CHL 0.9% 100 ML IV SCH (09:53)
--- NOTE | 2019-12-26 10:14 | NUR ---
Patient had moderated amount of pasty dark brown stool, given perineal care. Skin integrity assessed for any changes. Linens changed. Patient repositioned for comfort.
[2019-12-26 11:53] VITALS: BP 130/62
--- NOTE | 2019-12-26 12:20 | NUR ---
Dr Medellin at bedside, updated on patient's status. Patient seen and examined. Will carry out new orders.
[2019-12-26 15:58] VITALS: BP 132/68
--- NOTE | 2019-12-26 16:47 | NUR ---
Dr Land at bedside, updated on patient's status. Patient seen and examined. Will carry out new orders.
[2019-12-26 20:00] VITALS: BP 128/61
[2019-12-26] MEDS: ONDANSETRON HCL 4 MG/2 ML VIAL IV PRN (23:14)
--- NOTE | 2019-12-26 23:48 | NUR ---
Pt seemed to be gagging. When suctioning, mucus plug noted. Large black mucus plug pulled from back of throat. Pt tolerated well. When asked if she was ok afterwards, she verbalized clearly "Yeah." Pt was asked if she felt better and verbalized "Yeah." Stable at this time. Will continue to monitor. Feeding turned off temporarily.
[2019-12-27] VITALS (7 sets, daily range): BP systolic 112–138; BP diastolic 51–61
[2019-12-27] MEDS: IPRATROPIUM BROM 0.5 MG/2.5ML INH SOL NEB SCH ×6 (02:25→22:39)
[2019-12-27] MEDS: ALBUTEROL SULF 2.5 MG/0.5ML(0.5%) NEB SOLN NEB SCH ×6 (02:25→22:39)
[2019-12-27] MEDS: MEROPENEM 1GM IVPB 100 ML IV SCH ×2 (04:36→16:30)
--- NOTE | 2019-12-27 06:18 | NUR ---
Pt cleaned and linens changed. Pt continues to be responsive and more alert than the past several days. Tolerating feeding well. No S/S of distress. Stable at this time.
[2019-12-27] MEDS: FREE WATER GT SCH ×4 (06:29→18:30)
--- NOTE | 2019-12-27 07:55 | NUR ---
ASSESSMENT PT RESTING IN BED WITH EYES CLOSED. OPENS EYES TO NAME. DOES NOT SPEAK OR FOLLOW ANY SIMPLE COMMANDS. LUNGS CLEAR THROUGHOUT. O2 AR 2.5 L/M VIA NC WITH O2 SAT OF 100%. TELE SR 85 WITH INVERTED T WAVE IN LEAD V. PALPABLE PULSES TO ALL EXTREMITIES WITH NO EDEMA NOTED. ABD SOFT WITH + BOWEL SOUNDS. NGT WITH + PLACEMENT AND NO RESIDUAL NOTED. FEEDING OF JEVITY 1.2 AT 40 ML/HR. INCONTINENT OF SMALL AMOUNT OF SMALL AMOUNT OF PASTY THICK BM. SHIRA CARE GIVEN AND Z GUARD CREAM APPLIED. [place] CATHETER DRAINING CLEAR YELLOW URINE. TURNED FOR COMFORT. RAILS UP X4 AND BED INL OW POSITION. CONTINUE TO MONITOR PT.
--- NOTE | 2019-12-27 08:00 | NUR ---
MD VISIT PT SEEN AND EXAMINED BY DR Lucas MILLAN.
[2019-12-27] MEDS: MICAFUNGIN SODIUM 100 MG in SODIUM CHL 0.9% 100 ML IV SCH (10:14)
[2019-12-27] MEDS: PANTOPRAZOLE 40 MG/10 ML VIAL INJ IV SCH (10:15)
[2019-12-27] MEDS: ENOXAPARIN SOD 30 MG/0.3 ML SYRINGE SC SCH (10:16)
[2019-12-27] MEDS: LINEZOLID 600MG/300ML 300 ML IV SCH ×2 (11:38→22:25)
--- NOTE | 2019-12-27 12:30 | NUR ---
REPOSITIONED FOR COMFORT. BM SMEAR . SHIRA CARE GIVEN AND Z GUARD CREAM APPLIED.
--- NOTE | 2019-12-27 14:46 | NUR ---
Nutrition Followup Notes Wt: 61.4 kg Pt`s sleeping with no family by bedside. pt is currently NPO with EN support with Jevity 1.2 @ 40 ml./hr provding 1152 kcals and 52 gm proteins. Est Energy needs ABW 57 [id number] kcals (20-23 kcal/kgBW), Est Protein needs: 57-68 gms/day (1.0-1.2 gm/kgBW r/t severe hypoalb). Will continue to monitor and reassess prn. LABS: BUN 23 H, GLU 108 H, ALB 2.2 L, GI: Pt had 1 BM today per RN doc BS: 14 mod risk, Please refer to wound assessment report for full details. PES: Altered nutrition related lab values r/t current chronic medical condition aeb severe hypoalbuminemia Partially resolved, pending swallow eval by Speech Therapist: Impaired swallowing r/t current medical condition aeb pt`s intubated sedated with order of NPO Comments Will continue to closely monitor pertinent labs, NPO status and skin status prn. Will followup in 2-3 days 1) Advance diet as medically feasible. 3) Consider prostat 1 packet bid. 4) continue current plan of care
--- NOTE | 2019-12-27 18:00 | NUR ---
FAMILY RETURNED CALL OF PT'S SON TO UPDATE HIM. PT ANSWERED A FEW YES/NO QUESTIONS AND WHEN ASKED WHERE SHE WAS, SHE REPLIED " BRANDON MICHAEL".
--- NOTE | 2019-12-27 19:20 | NUR ---
REPORT REPORT GIVEN TO ARASH ALBARADO RN.
[2019-12-28 00:09] VITALS: BP 120/54
[2019-12-28] MEDS: ALBUTEROL SULF 2.5 MG/0.5ML(0.5%) NEB SOLN NEB SCH ×5 (03:03→19:01)
[2019-12-28] MEDS: IPRATROPIUM BROM 0.5 MG/2.5ML INH SOL NEB SCH ×5 (03:03→19:01)
[2019-12-28] MEDS: MEROPENEM 1GM IVPB 100 ML IV SCH ×2 (05:04→15:39)
[2019-12-28] MEDS: FREE WATER GT SCH ×4 (06:00→18:07)
--- NOTE | 2019-12-28 07:30 | NUR ---
RECEIVED PATIENT SITTING UP IN THE BED, O2 AT 2L BY N/C, [place] TO GRAVITY, SCD'S TO BISHOP LEGS, MIDLINE TO THE DANIEL WITH ANTIBIOTICS INFUSING BY THE IV PUMP, GRAVITY AT 40ML/HR INFUSING INTO THE RT SNARES BY THE FEEDING, PLACEMENT CHECKED BY AUSCULTATION AND POSITIVE, NO RESIDUAL, PATIENT SAID HI WHEN I CALLED HER NAME AND OPEN HER EYES WHEN ASK, BUT VERY WEAK TO SQUEEZE BY HANDS BUT ABLE TO MOVE THE LEFT ARM UP AND TOUCH MY HAND
--- NOTE | 2019-12-28 07:32 | NUR ---
Pt remained stable this shift. Verbally responding with 2-3 word responses. No S/S of distress. Report given to AM shift, care endorsed.
[2019-12-28 08:00] VITALS: BP 120/60
--- NOTE | 2019-12-28 08:15 | NUR ---
DR ULLOA IN TO SEE THE PATIENT
--- NOTE | 2019-12-28 08:30 | NUR ---
EXPLAIN TO THE PATIENT THAT SHE WAS BEING FEED BY THE NGT THAT WAS IN HER NOSE
[2019-12-28] MEDS: PANTOPRAZOLE 40 MG/10 ML VIAL INJ IV SCH (09:43)
[2019-12-28] MEDS: LINEZOLID 600MG/300ML 300 ML IV SCH ×2 (09:43→21:47)
[2019-12-28] MEDS: ENOXAPARIN SOD 30 MG/0.3 ML SYRINGE SC SCH (09:44)
--- NOTE | 2019-12-28 09:45 | NUR ---
EXPLAIN MEDICATION TO THE PATIENT REGARDING THE DOSAGE, USAGE AND THE SIDE EFFECTS, VERBALIZED THAT SHE UNDERSTOOD AND MEDS ALL GIVEN ORDERED
--- NOTE | 2019-12-28 10:15 | NUR ---
DR ROBLESHA IN TO SEE THE PATIENT AND WROTE A FEW NEW ORDERS
--- NOTE | 2019-12-28 10:30 | NUR ---
PATIENT TALKING TO HER SON ON THE PHONE
--- NOTE | 2019-12-28 11:30 | NUR ---
STATES SHE IS DOING OKAY,ASK IF SHE NEEDED A BLANKET OR ANYTHING AND SHE SAID NO
[2019-12-28] MEDS: MICAFUNGIN SODIUM 100 MG in SODIUM CHL 0.9% 100 ML IV SCH (11:59)
[2019-12-28 12:00] VITALS: BP 122/60
--- NOTE | 2019-12-28 12:45 | NUR ---
EEG BEING DONE
--- NOTE | 2019-12-28 12:50 | NUR ---
MOLDED GRID AND PARTS INSPECTOR STATED HE WAS UNABLE TO DO THE EEG DUE TO PATIENTS MATTED HAIR
--- NOTE | 2019-12-28 13:02 | NUR ---
DR QUEEN INTO SEE THE PATIENT AND SHE TOLD HIM THAT SHE WAS FINE
--- NOTE | 2019-12-28 14:33 | NUR ---
SITTING UP IN THE BED, EYES CLOSED
--- NOTE | 2019-12-28 15:31 | NUR ---
SITTING UP IN THE BED STATES SHE WANTS TO TALK TO HER SON WHEN HE CALLS AGAIN
--- NOTE | 2019-12-28 15:43 | NUR ---
TALKING TO HER SON ON THE PHONE
[2019-12-28 15:49] VITALS: BP 123/61
--- NOTE | 2019-12-28 16:30 | NUR ---
NO CHANGE STILL TALKING WHEN PICKENS ASK HER A QUESTION, DENIES PAIN
--- NOTE | 2019-12-28 17:30 | NUR ---
MADE DR ULLOA AWARE THAT THE PATIETN WAS UNABLE TO HAVE THE EEG DONE
--- NOTE | 2019-12-28 18:08 | NUR ---
PARTIAL LINEN CHANGE, GEVITY INFUSING INTO THE RT NARES AT 40ML/HR BY THE FEEDING PUMP, ANTIBIOTICS INFUSING INTO THE DANIEL MIDLINE AT 33.33ML/HR BY THE IV PUMP, [place] TO GRAVITY, SCD'S TO BISHOP LEGS, O2 BY R/A, STILL ANSWERING QUESTIONS WHEN YOU TALK TO HER, NO COMPLAINTS OF PAIN, WILL CONTINUE TO MONITOR AND GIVE REPORT TO THE NEXT SHIFT
--- NOTE | 2019-12-28 19:00 | NUR ---
Opening notes Assumed care, awake, on O2/nc @ 1L/min, NGT feeding with Jevity @ 40ml/hr, no residual noted, ceballos catheter in place draining to a clear urine. Bed in lowest position with side rails up, bed alarm on. Will continue care.
[2019-12-28 20:00] VITALS: BP 128/64
--- NOTE | 2019-12-28 21:05 | NUR ---
Received a call from pt's son, updated on pt's status and POC, all questions and concerns were addressed, verbalized understanding.
--- NOTE | 2019-12-28 23:29 | NUR ---
Received a call from pt's son, updates given
[2019-12-29] VITALS: BP 113/55
[2019-12-29] MEDS: ALBUTEROL SULF 2.5 MG/0.5ML(0.5%) NEB SOLN NEB SCH ×7 (00:09→22:14)
[2019-12-29] MEDS: IPRATROPIUM BROM 0.5 MG/2.5ML INH SOL NEB SCH ×7 (00:09→22:14)
--- NOTE | 2019-12-29 03:03 | NUR ---
Morning care done Full bath given, complete linen and gown changed repositioned for comfort.
[2019-12-29 03:46] LABS: Basophils # (auto) 0.1 10 ^3/uL (0-0.2); Basophils % (auto) 0.8 % (0.0-2.0); Eosinophils # (auto) 0.3 10 ^3/uL (0-0.8); Eosinophils % (auto) 2.1 % (0.0-7.0); Hematocrit 25.7 % (36.0-46.0); Hemoglobin 8.3 g/dL (12.2-16.2); Lymphocytes # (auto) 1.2 10 ^3/uL (0.4-5.4); Mean Corpuscular Hemoglobin 28.8 pg (28.0-32.0); Mean Corpuscular Hgb Conc. 32.4 g/dL (32.0-36.0); Mean Corpuscular Volume 88.9 fL (80.0-100.0); Monocytes # (auto) 1.3 10 ^3/uL (0-1.3); Monocytes % (auto) 10.4 % (0.0-12.0); Neutrophils # (auto) 9.6 10 ^3/uL (1.6-8.6); Neutrophils % (auto) 76.7 % (37.0-80.0); Platelet Count (auto) 318 10^3/uL (140-450); Red Blood Cells 2.89 10^6/uL (4.0-5.20); Red Cell Distribution Width 16.1 % (11.8-14.3); White Blood Cell 12.5 10^3/uL (4.4-10.8)
[2019-12-29 04:00] VITALS: BP 130/68
[2019-12-29 04:08] LABS: Albumin 1.8 g/dL (3.4-5.0); Calcium 8.4 mg/dL (8.5-10.1)
[2019-12-29] MEDS: MEROPENEM 1GM IVPB 100 ML IV SCH ×2 (04:12→15:07)
[2019-12-29 04:13] LABS: BUN/Creatinine Ratio 24.3; Bilirubin, Total 0.4 mg/dL (0.2-1.0); Total Protein 5.8 g/dL (6.4-8.2)
[2019-12-29] MEDS: FREE WATER GT SCH ×4 (06:00→17:18)
[2019-12-29 07:45] VITALS: BP 128/69
--- NOTE | 2019-12-29 08:00 | NUR ---
Opening Shift Note Assumed care of patient, awake and oriented x 3, re- oriented to time. No S/S of distress/SOB or pain. See interventions for complete assessment. Bed locked on low position, side rails up x2, bed alarms on at all times, call glover within reach, instructed on POC and to call for assist PRN, will continue to monitor for changes Q1hr and PRN.
--- NOTE | 2019-12-29 08:50 | NUR ---
Dr Land at bedside, updated on patient's status. Patient seen and examined. Will carry out new orders.
--- NOTE | 2019-12-29 09:15 | NUR ---
Dr Ugalde at bedside, updated on patient's status. Patient seen and examined. Will carry out new orders.
--- NOTE | 2019-12-29 09:30 | NUR ---
Received call from patient's son Patrice who's able to provide password. Updated on patient's status and POC, verbalized understanding. All questions and concerns addressed.
[2019-12-29] MEDS: PANTOPRAZOLE 40 MG/10 ML VIAL INJ IV SCH (10:03)
[2019-12-29] MEDS: ENOXAPARIN SOD 30 MG/0.3 ML SYRINGE SC SCH (10:03)
[2019-12-29] MEDS: LINEZOLID 600MG/300ML 300 ML IV SCH ×2 (10:03→21:50)
[2019-12-29] MEDS: MICAFUNGIN SODIUM 100 MG in SODIUM CHL 0.9% 100 ML IV SCH (10:03)
--- NOTE | 2019-12-29 10:15 | NUR ---
WOUND CARE NOTE: IN TO SEE PATIENT AT THIS TIME FOR SKIN INTEGRITY MONITORING OF BILATERAL CHEEK ECCHYMOSIS. PATIENT HAS CURRENT JAYDEN SCORE OF 14. PATIENT CONTINUES TO BE MAX ASSIST FOR HER ADL'S, INCLUDING TURNING/REPOSITIONING. SKIN/WOUND CARE PLAN UPDATED. PATIENT'S BILATERAL CHEEK ECCHYMOSIS CONTINUE TO IMPROVE/FADE. NEW WOUND PHOTOS TAKEN AT THIS TIME PER PROTOCOL. SKIN REMAINS INTACT, NO DRESSING NEEDED,LEFT OPEN TO AIR. RECOMMEND: CONTINUATION WITH ALL WOUND CARE ORDERS PREVIOUSLY PRESCRIBED BY MD. WOUND CARE TEAM WILL CONTINUE TO MONITOR. Addendum: 12/29/19 at 1608 by Corrine Stokes RN Amended: Links added.
--- NOTE | 2019-12-29 10:44 | NUR ---
Dr Gaitan at bedside, updated on patient's status. Patient seen and examined. Will carry out new orders.
[2019-12-29 11:53] VITALS: BP 131/62
--- NOTE | 2019-12-29 12:25 | NUR ---
Respiratory note: THERAPIST UNAVAILABLE FOR 1000 MED-NEB TX DUE TO CODE/INTUBATION OF PATIENT. ON RE-EVALUATION AFTER MISSED TX PATIENT WAS EXHIBITING NO SIGNS/SYMPTOMS OF ANY RESPIRATORY DISTRESS.
--- NOTE | 2019-12-29 12:30 | NUR ---
Urine sample sent to lab
--- NOTE | 2019-12-29 12:40 | NUR ---
Nutrition Followup Notes Wt: 60.2 kg Pt`s sleeping with no family by bedside. pt is currently NPO with EN support with Jevity 1.2 @ 40 ml./hr providing 1152 kcals and 52 gm proteins. Est Energy needs ABW 57 [id number] kcals (20-23 kcal/kgBW), Est Protein needs: 57-68 gms/day (1.0-1.2 gm/kgBW r/t severe hypoalb). Will continue to monitor and reassess prn. LABS:Gluc 131H, Ca 8.4L, Alb 1.8L GI: Pt had 3 BM 12/28 per RN doc BS: 15 mod risk, Please refer to wound assessment report for full details. PES: Altered nutrition related lab values r/t current chronic medical condition aeb severe hypoalbuminemia Partially resolved, pending swallow eval by Speech Therapist: Impaired swallowing r/t current medical condition aeb pt`s intubated sedated with order of NPO Comments Will continue to closely monitor pertinent labs, NPO status and skin status prn. Will followup in 2-3 days 1) Advance diet as medically feasible. 2) Consider prostat 1 packet bid. 3) continue current plan of care
[2019-12-29 15:36] LABS: Urine Bacteria NONE SEEN /hpf (None Seen); Urine Blood 1+ /uL (Negative); Urine Hyaline Cast FEW /lpf (0 - 2); Urine Specific Gravity 1.014 (1.001-1.035); Urine WBC 1 /hpf (0 - 5)
[2019-12-29 15:41] VITALS: BP 129/66
--- NOTE | 2019-12-29 19:30 | NUR ---
OPENING NOTE REPORT RECEIVED FROM DAY SHIFT RN PATIENT IS AWAKE AND ALERT, ABLE TO VERBALIZE "YES" AND "NO" TO SIMPLE QUESTIONS ASKED. PATIENT ON CONTINUOUS MONITOR. HEART RATE IN LOW 100'S, SPO2 AT 96% ON 2L NASAL CANNULA. NG TUBE TO RIGHT NARE. POSITION VERIFIED VIA AUSCULTATION AND RESIDUAL CHECK. NO RESIDUAL NOTED. JEVITY RESUMED AT 40ML/HR. PHYSICAL ASSESSMENT DONE-SEE INTERVENTIONS. MIDLINE TO RIGHT UPPER ARM-SEE IV FLOWSHEET. [place] DRAINING TO GRAVITY. WILL REPOSITION Q2H TO PREVENT SKIN BREAKDOWN. CALL LIGHT WITHIN REACH. SCD'S ON BILATERALLY.
[2019-12-29 20:00] VITALS: BP 138/67
--- NOTE | 2019-12-29 22:38 | NUR ---
PM CARE PATIENT GIVEN COMPLETE BED BATH USING CHP WIPES AND WARM SOAPY WATER WASH CLOTHS. PATIENT GIVEN COMPLETE LINEN AND GOWN CHANGE. ORAL CARE ALSO PROVIDED TO PATIENT. PATIENT TOLERATED WELL.
[2019-12-30] VITALS: BP 125/62
[2019-12-30] MEDS: FREE WATER GT SCH ×4 (00:13→17:47)
[2019-12-30] MEDS: ALBUTEROL SULF 2.5 MG/0.5ML(0.5%) NEB SOLN NEB SCH ×6 (01:59→22:17)
[2019-12-30] MEDS: IPRATROPIUM BROM 0.5 MG/2.5ML INH SOL NEB SCH ×6 (01:59→22:17)
[2019-12-30 04:00] VITALS: BP 125/54
[2019-12-30] MEDS: MEROPENEM 1GM IVPB 100 ML IV SCH ×2 (04:01→15:52)
--- NOTE | 2019-12-30 07:12 | NUR ---
CLOSING PATIENT IS SLEEPING AT THIS TIME, CONNECTED TO CONTINUOUS MONITORS, HEART RATE IN 90'S WITH SPO2 96% ON 2L NASAL CANNULA. PATIENT RUNNING JEVITY THROUGH NGT, NO RESIDUALS WHEN CHECKED. ENDORSED CARE TO AM SHIFT BRYCE DOBSON
--- NOTE | 2019-12-30 07:45 | NUR ---
Opening Shift Note Assumed care of patient, laying in bed, eyes closed. No S/S of distress/SOB or pain. See interventions for complete assessment. Bed locked on low position, side rails up x2, bed alarms on at all times, call glover within reach, instructed on POC and to call for assist PRN, will continue to monitor for changes Q1hr and PRN.
[2019-12-30 07:47] VITALS: BP 130/57
--- NOTE | 2019-12-30 08:30 | NUR ---
PER PRIMARY THERAPIST pt WILL BE DISCHARGED FROM PT SERVICE DUE TO CURRENT UNRESPONSIVE STATE. Addendum: 12/30/19 at 0906 by Kalen Irwin BILINGUAL SCHOOL PSYCHOLOGIST Amended: Links added. Addendum: 12/30/19 at 0924 by Kalen Irwin BILINGUAL SCHOOL PSYCHOLOGIST AND INABILITY TO PARTICIPATE IN THERAPEUTIC ACTIVITIES.
[2019-12-30] MEDS: LINEZOLID 600MG/300ML 300 ML IV SCH ×2 (09:17→22:03)
[2019-12-30] MEDS: PANTOPRAZOLE 40 MG/10 ML VIAL INJ IV SCH (09:17)
[2019-12-30] MEDS: ENOXAPARIN SOD 30 MG/0.3 ML SYRINGE SC SCH (09:17)
[2019-12-30] MEDS: MICAFUNGIN SODIUM 100 MG in SODIUM CHL 0.9% 100 ML IV SCH (09:18)
--- NOTE | 2019-12-30 09:30 | NUR ---
Patient had small amount of dark brown, pasty stool, perineal care rendered. Skin integrity assessed for any changes. Linens changed. Patient repositioned for comfort.
--- NOTE | 2019-12-30 09:47 | NUR ---
Received call from patient's son Patrice who's able to provide password. Updated on patient's status and POC, verbalized understanding. All questions and concerns addressed.
--- NOTE | 2019-12-30 10:44 | NUR ---
Dr Gaitan at bedside, updated on patient's status, patient seen and examined. Will carry out new orders.
[2019-12-30 11:44] VITALS: BP 131/67
--- NOTE | 2019-12-30 14:58 | NUR ---
Kalen MANNING at bedside, patient able to dangle with max assist for two minutes.
[2019-12-30 15:44] VITALS: BP 131/67
[2019-12-30 19:38] VITALS: BP 131/67
--- NOTE | 2019-12-30 20:00 | NUR ---
RECIEVED PT AWAKE, FLAT AFFECT, PT ANSWERS APPROPRIATELY TO SIMPLE QUESTIONS, DENIES DISCOMFORT, LOW GRADE TEMP 99.8, SKIN WARM, CLEANSED OF SMALL LOOSE DRK GRN BRN STOOL, OPTIFOAM CHANGED, NO SKIN BREAKDOWN ON BUTTOCK, SEE INTERVENTIONS FOR HEAD TO TOE ASSESSMENT
[2019-12-31] VITALS (8 sets, daily range): BP systolic 122–139; BP diastolic 51–67
--- NOTE | 2019-12-31 | NUR ---
PT AWAKE, NO NEURO CHANGES, NO STOOLS, HR 90-100 SR, WILL CONTINUE TO MONITOR
[2019-12-31] MEDS: ALBUTEROL SULF 2.5 MG/0.5ML(0.5%) NEB SOLN NEB SCH ×6 (02:40→22:04)
[2019-12-31] MEDS: IPRATROPIUM BROM 0.5 MG/2.5ML INH SOL NEB SCH ×6 (02:40→22:04)
--- NOTE | 2019-12-31 04:00 | NUR ---
COMPLETE BATH GIVEN AND PARTIAL LINEN CHANGE, NO STOOL, PT EXT VERY RIGID, URINE OUTPUT GOOD, VS STABLE, REMAINS ON 2LNC, TACHYPNIEC 19-21, SA02 HIGH 90'S, NO OTHER CHANGES
[2019-12-31] MEDS: MEROPENEM 1GM IVPB 100 ML IV SCH ×2 (04:30→16:18)
[2019-12-31] MEDS: ACETAMINOPHEN 500 MG TAB PO PRN (04:35)
[2019-12-31 05:04] LABS: Basophils # (auto) 0.4 10 ^3/uL (0-0.2); Basophils % (auto) 3.2 % (0.0-2.0); Eosinophils # (auto) 0.2 10 ^3/uL (0-0.8); Eosinophils % (auto) 1.8 % (0.0-7.0); Hematocrit 23.8 % (36.0-46.0); Hemoglobin 7.8 g/dL (12.2-16.2); Lymphocytes # (auto) 1.3 10 ^3/uL (0.4-5.4); Lymphocytes % (auto) 9.9 % (10.0-50.0); Mean Corpuscular Hgb Conc. 32.9 g/dL (32.0-36.0); Mean Corpuscular Volume 88.3 fL (80.0-100.0); Neutrophils # (auto) 9.8 10 ^3/uL (1.6-8.6); Neutrophils % (auto) 77.1 % (37.0-80.0); Nucleated Red Blood Cells % 0.1 %; Platelet Count (auto) 325 10^3/uL (140-450); Red Cell Distribution Width 16.1 % (11.8-14.3); White Blood Cell 12.8 10^3/uL (4.4-10.8)
[2019-12-31 05:18] LABS: Potassium 3.6 mmol/L (3.5-5.1)
[2019-12-31 05:23] LABS: BUN/Creatinine Ratio 22.6; Calcium 8.4 mg/dL (8.5-10.1)
--- NOTE | 2019-12-31 05:30 | NUR ---
PT WILL BE TRANSFERED TO TELE, REPORT GIVEN TO DIPESH WU
--- NOTE | 2019-12-31 06:30 | NUR ---
Assumed care of patient received patient, awake and oriented to name and time, re-oriented to place and situation. patient follows directions. On oxygen at 2L via NC with even and unlabored respirations, o2 at 96%. ngt with tube feeding. BP 117/61 HR 108 RR20. bed in lowest locked position with side rails up x 2 and call light within reach, bed alarm on. will continue care.
[2019-12-31] MEDS: FREE WATER GT SCH ×4 (06:43→18:48)
--- NOTE | 2019-12-31 06:58 | NUR ---
Closing note patient resting in bed with even and unlabored respirations, oxygen on at 2L via NC. no s/s of distress or SOB. Bed in lowest locked position with side rails up x 2 and call light within reach.
--- NOTE | 2019-12-31 07:45 | NUR ---
Opening Shift Note Assumed care of patient, awake and alert . No S/S of distress/SOB or pain. Bed in lowest/locked position, bed rails up x2, call light within reach. Instructed on POC and to call for assist PRN. Will continue to monitor for changes Q1hr and PRN.
[2019-12-31] MEDS: MICAFUNGIN SODIUM 100 MG in SODIUM CHL 0.9% 100 ML IV SCH (10:00)
--- NOTE | 2019-12-31 10:30 | NUR ---
PHYSICAL THERAPY PT AT BEDSIDE ASSISTING PATIENT TO SIT ON SIDE OF BED. PATIENT TENSE, SOB WITH EXERTION. O2 SAT 88%. TURNED O2 UP TO 3L N/C. O2 SAT 93%. WILL CONTINUE TO MONITOR
[2019-12-31] MEDS: ENOXAPARIN SOD 30 MG/0.3 ML SYRINGE SC SCH (10:31)
[2019-12-31] MEDS: PANTOPRAZOLE 40 MG/10 ML VIAL INJ IV SCH (10:31)
[2019-12-31] MEDS: LINEZOLID 600MG/300ML 300 ML IV SCH ×2 (10:36→22:30)
--- NOTE | 2019-12-31 11:42 | NUR ---
MD ROUNDS DR OCHOA AT BEDSIDE DISCUSSING POC WITH THIS RN AND PATIENT. NEW ORDERS RECEIVED/WILL CARRY OUT. WILL CONTINUE TO MONITOR
--- NOTE | 2019-12-31 13:45 | NUR ---
FAMILY UPDATED FAMILY ON PATIENT POC. TRANSFERRED CALL TO PATIENT. ASSISTED PATIENT WITH CALL FROM SON
--- NOTE | 2019-12-31 14:41 | NUR ---
Nutrition Followup Notes Wt: 60.2 kg Pt was alert and oriented during rounds. Pt reports no GI issues. pt is currently NPO with EN support with Jevity 1.2 @ 40 ml./hr providing 1152 kcals and 52 gm proteins. Est Energy needs ABW 57 [id number] kcals (20-23 kcal/kgBW), Est Protein needs: 57-68 gms/day (1.0-1.2 gm/kgBW r/t severe hypoalb). Will continue to monitor and reassess prn. LABS: GLUC 131H, Ca 8.4L, Alb 1.8L GI: Pt had 2 BM 12/30 per RN doc BS: 14 mod risk, Please refer to wound assessment report for full details. PES: Altered nutrition related lab values r/t current chronic medical condition aeb severe hypoalbuminemia Partially resolved, pending swallow eval by Speech Therapist: Impaired swallowing r/t current medical condition aeb pt`s intubated sedated with order of NPO Comments Will continue to closely monitor pertinent labs, NPO status and skin status prn. Will followup in 2-3 days 1) Advance diet as medically feasible. 2) Consider prostat 1 packet bid. 3) continue current plan of care
--- NOTE | 2019-12-31 21:00 | NUR ---
Family updated on pt status Family of ANNE-MARIE FERNANDEZ updated on patient's status and condition. All questions and concerns addressed. Son, Patrice verbalized understanding.
--- NOTE | 2019-12-31 21:15 | NUR ---
Opening Shift Note Assumed care of patient, awake and oriented to name and place re-oriented to to time and situation. patient follows directions, soft spoken. On oxygen at 3L via NC with even and unlabored respirations. NGT with tube feeding. Currie intact and draining to gravity. Patient turned with max assist optifoam to sacrum CDI. SCD's on to bilateral LE with machine on. Right upper arm midline intact and patent. Bed in lowest locked position with side rails up x 2 and call light within reach, bed alarm on. Instructed patient on POC and to call for assistance PRN. will continue care. Addendum: 12/31/19 at 2128 by Marian Burnette RN RN wrong time. actual occurrence at 2015.
[2020-01-01] MEDS: FREE WATER GT SCH ×2 (00:11→05:43)
[2020-01-01] MEDS: ALBUTEROL SULF 2.5 MG/0.5ML(0.5%) NEB SOLN NEB SCH ×6 (02:17→22:58)
[2020-01-01] MEDS: IPRATROPIUM BROM 0.5 MG/2.5ML INH SOL NEB SCH ×6 (02:17→22:56)
[2020-01-01] MEDS: MEROPENEM 1GM IVPB 100 ML IV SCH ×2 (04:33→16:20)
[2020-01-01 05:00] VITALS: BP 130/57
--- NOTE | 2020-01-01 07:11 | NUR ---
OPENING SHIFT NOTE ASSUMED CARE OF PATIENT FROM MEDIA RELATIONS COORDINATOR RN DIPESH. PATIENT IS AWAKE AND ORIENTED X1 (NAME). REORIENTED PATIENT TO PLACE, TIME, AND SITUATION. UPDATED PATIENT ON POC, PATIENT NODDED IN UNDERSTANDING. BED IS IN LOWEST POSITION WITH SIDE RAILS RAISED X2, HOB >30, BED WHEELS LOCKED, BED ALARM ON, AND CALL LIGHT IS WITHIN REACH. WILL CONTINUE TO MONITOR.
--- NOTE | 2020-01-01 07:11 | NUR ---
Closing note patient resting in bed with HOB elevated 30 degrees, even and unlabored respirations, oxygen on at 2L via NC. no s/s of distress or SOB. SCD's on to bilateral LE with machine on. Patient was repositioned q2hrs throughout shift and tolerated well. Bed in lowest locked position with side rails up x 2 and call light within reach.
[2020-01-01 07:49] VITALS: BP 125/61
[2020-01-01 08:58] VITALS: BP 125/61
[2020-01-01] MEDS: PANTOPRAZOLE 40 MG/10 ML VIAL INJ IV SCH (10:17)
[2020-01-01] MEDS: ENOXAPARIN SOD 30 MG/0.3 ML SYRINGE SC SCH (10:17)
[2020-01-01] MEDS: MICAFUNGIN SODIUM 100 MG in SODIUM CHL 0.9% 100 ML IV SCH (10:17)
--- NOTE | 2020-01-01 12:00 | NUR ---
WOUND CARE NOTE: SPECIALTY AIR MATTRESS ORDERED AT THIS TIME. PATIENT TO BE PLACED, PENDING DELIVERY BY JIMBO ANDREWS
--- NOTE | 2020-01-01 12:05 | NUR ---
SPOKE WITH MD OCHOA INFORMED OF PATIENT'S STATUS INCLUDING SODIUM LEVEL. PER MD DISCONTINUE FREE WATER.
[2020-01-01] MEDS: LINEZOLID 600MG/300ML 300 ML IV SCH ×2 (12:07→22:59)
[2020-01-01 12:45] VITALS: BP 136/62
[2020-01-01 16:49] VITALS: BP 129/69
--- NOTE | 2020-01-01 19:27 | NUR ---
CLOSING SHIFT NOTE ENDORSED CARE TO AD OPERATIONS ASSOCIATE BRYCE ALDANA. PATIENT HAS NO S/S OF DISTRESS/SOB OR PAIN AT THIS TIME. Addendum: 01/01/20 at 1928 by Nuvia Cordova RN RN ENDORSED CARE OT AD OPERATIONS ASSOCIATE BRYCE KIMBALL
[2020-01-01 22:09] VITALS: BP 124/51
[2020-01-02] VITALS (7 sets, daily range): BP systolic 119–127; BP diastolic 65–69
[2020-01-02] MEDS: IPRATROPIUM BROM 0.5 MG/2.5ML INH SOL NEB SCH ×6 (02:27→22:22)
[2020-01-02] MEDS: ALBUTEROL SULF 2.5 MG/0.5ML(0.5%) NEB SOLN NEB SCH ×6 (02:27→22:22)
[2020-01-02] MEDS: MEROPENEM 1GM IVPB 100 ML IV SCH ×2 (05:12→16:47)
[2020-01-02 06:02] LABS: Basophils # (auto) 0.2 10 ^3/uL (0-0.2); Eosinophils # (auto) 0.2 10 ^3/uL (0-0.8); Hemoglobin 7.2 g/dL (12.2-16.2); Lymphocytes # (auto) 1.1 10 ^3/uL (0.4-5.4); Mean Corpuscular Hemoglobin 29.5 pg (28.0-32.0); Monocytes # (auto) 0.8 10 ^3/uL (0-1.3); Neutrophils # (auto) 5.7 10 ^3/uL (1.6-8.6)
[2020-01-02 06:05] LABS: Basophils % (auto) 2.2 % (0.0-2.0); Eosinophils % (auto) 2.2 % (0.0-7.0); Hematocrit 21.7 % (36.0-46.0); Lymphocytes % (auto) 13.6 % (10.0-50.0); Mean Corpuscular Hgb Conc. 33.2 g/dL (32.0-36.0); Mean Corpuscular Volume 88.9 fL (80.0-100.0); Monocytes % (auto) 10.3 % (0.0-12.0); Neutrophils % (auto) 71.7 % (37.0-80.0); Platelet Count (auto) 332 10^3/uL (140-450); Red Blood Cells 2.44 10^6/uL (4.0-5.20); Red Cell Distribution Width 16.6 % (11.8-14.3); White Blood Cell 7.9 10^3/uL (4.4-10.8)
--- NOTE | 2020-01-02 07:10 | NUR ---
OPENING SHIFT NOTE ASSUMED CARE OF PATIENT FROM BRIM EDGE TRIMMER RN JIGAR. PATIENT IS AWAKE AND ORIENTED X3 (NAME, PLACE, TIME). REORIENTED PATIENT TO SITUATION. UPDATED PATIENT ON POC, PATIENT VERBALIZED UNDERSTANDING UNDERSTANDING. BED IS IN LOWEST POSITION WITH SIDE RAILS RAISED X2, HOB >30, BED WHEELS LOCKED, BED ALARM ON, AND CALL LIGHT IS WITHIN REACH. WILL CONTINUE TO MONITOR.
[2020-01-02] MEDS: PANTOPRAZOLE 40 MG/10 ML VIAL INJ IV SCH (09:16)
[2020-01-02] MEDS: ENOXAPARIN SOD 30 MG/0.3 ML SYRINGE SC SCH (09:16)
[2020-01-02] MEDS: MICAFUNGIN SODIUM 100 MG in SODIUM CHL 0.9% 100 ML IV SCH (09:17)
[2020-01-02] MEDS: LINEZOLID 600MG/300ML 300 ML IV SCH ×2 (10:34→21:21)
--- NOTE | 2020-01-02 11:04 | NUR ---
Nutrition Followup Notes Wt: 62.6 kg Pt sleeping during rounds. Pt with swallow eval request in orders. pt is currently NPO with EN support with Jevity 1.2 @ 40 ml./hr providing 1152 kcals and 52 gm proteins. Est Energy needs ABW 57 [id number] kcals (20-23 kcal/kgBW), Est Protein needs: 57-68 gms/day (1.0-1.2 gm/kgBW r/t severe hypoalb). Will continue to monitor and reassess prn. LABS: Gluc 131H, Ca 8.4L, Alb 1.8L GI: Pt had 1 BM 01/01 per RN doc BS: 13 high risk, Please refer to wound assessment report for full details. PES: Altered nutrition related lab values r/t current chronic medical condition aeb severe hypoalbuminemia Partially resolved, pending swallow eval by Speech Therapist: Impaired swallowing r/t current medical condition aeb pt`s intubated sedated with order of NPO Comments Will continue to closely monitor pertinent labs, NPO status and skin status prn. Will followup in 2-3 days 1) Advance diet as medically feasible. 2) Consider prostat 1 packet bid. 3) continue current plan of care
--- NOTE | 2020-01-02 12:15 | NUR ---
MD OCHOA AT BEDSIDE UPDATED MD ON PATIENT'S STATUS, INCLUDING PITTING 2+ EDEMA TO LOWER EXTREMITIES AND SWALLOW EVALUATION AT BEDSIDE. MD IS AWARE AND ORDERED NGT TO BE DISCONTINUED IF PATIENT TOLERATES SWALLOW EVALUATION. MD WILL PUT IN NEW ORDERS.
[2020-01-02] MEDS ORDERED: POTASSIUM EFFERVESENT TAB 25 MEQ GT ONE (12:30)
[2020-01-02] MEDS ORDERED: FUROSEMIDE 20 MG/2 ML VIAL IV ONE (12:30)
--- NOTE | 2020-01-02 12:33 | NUR ---
SWALLOW EVALUATED. PATIENT HAS NO TEETH OR DENTURES. PATIENT ABLE TO FOLLOW COMMANDS. PATIENT COUGHED ON TRIAL OF THIN LIQUIDS. PATIENT ABLE TO TOLERATE PUREE DIET TEXTURE WITH NECTAR THICKENED LIQUIDS WITH NO OVERT SIGNS OR SYMPTOMS OF ASPIRATION. NURSING NOTIFIED.
--- NOTE | 2020-01-02 13:11 | NUR ---
NGT removal NGT removed per MD/ASSISTANT TEACHING PROFESSOR order following explanation and instruction to patient. Patient verbalized understanding prior to removal. Patient tolerated well.
--- NOTE | 2020-01-02 14:00 | NUR ---
Pt refused PT treatment today but agreeable to participate tomorrow. Will attempt again.
--- NOTE | 2020-01-02 19:21 | NUR ---
CLOSING SHIFT NOTE ENDORSED CARE TO SLASHER RUNNER RN CARLOS. PATIENT HAS NO S/S OF DISTRESS/SOB OR PAIN AT THIS TIME.
[2020-01-03] MEDS: ALBUTEROL SULF 2.5 MG/0.5ML(0.5%) NEB SOLN NEB SCH ×6 (02:25→22:43)
[2020-01-03] MEDS: IPRATROPIUM BROM 0.5 MG/2.5ML INH SOL NEB SCH ×6 (02:26→22:43)
[2020-01-03] MEDS: MEROPENEM 1GM IVPB 100 ML IV SCH ×2 (03:37→14:35)
[2020-01-03 06:00] VITALS: BP 130/68
--- NOTE | 2020-01-03 07:15 | NUR ---
OPENING SHIFT NOTE ASSUMED CARE OF PATIENT FROM ACCOUNT DIRECTOR RN CARLOS. PATIENT IS AWAKE AND ORIENTED X4. UPDATED PATIENT ON POC, PATIENT VERBALIZED UNDERSTANDING UNDERSTANDING. BED IS IN LOWEST POSITION WITH SIDE RAILS RAISED X2, HOB >30, BED WHEELS LOCKED, BED ALARM ON, [place] IS HANGING BELOW BLADDER DRAINING YELLOW URINE. REPOSITIONED PATIENT TO LEFT SIDE, AND CALL LIGHT IS WITHIN REACH. WILL CONTINUE TO MONITOR.
[2020-01-03 07:56] VITALS: BP 121/65
[2020-01-03 09:00] VITALS: BP 121/65
[2020-01-03] MEDS: ENOXAPARIN SOD 30 MG/0.3 ML SYRINGE SC SCH (10:10)
[2020-01-03] MEDS: MICAFUNGIN SODIUM 100 MG in SODIUM CHL 0.9% 100 ML IV SCH (10:10)
[2020-01-03] MEDS: PANTOPRAZOLE 40 MG/10 ML VIAL INJ IV SCH (10:11)
[2020-01-03] MEDS: LINEZOLID 600MG/300ML 300 ML IV SCH ×2 (11:21→21:08)
[2020-01-03 13:00] VITALS: BP_SYST 105; BP_SYST 123; BP_DIAS 60; BP_DIAS 70
[2020-01-03 17:00] VITALS: BP 137/74
[2020-01-03] MEDS: Glucerna Carbsteady SHAKE Vanilla 8oz PO SCH (18:00)
--- NOTE | 2020-01-03 19:09 | NUR ---
CLOSING SHIFT NOTE ENDORSED CARE TO BACK GRAY CLOTH WASHER RN CARLOS. PATIENT HAS NO S/S OF DISTRESS/SOB OR PAIN AT THIS TIME.
[2020-01-03 22:00] VITALS: BP 125/72
[2020-01-04] MEDS: ALBUTEROL SULF 2.5 MG/0.5ML(0.5%) NEB SOLN NEB SCH ×6 (02:00→22:30)
[2020-01-04] MEDS: IPRATROPIUM BROM 0.5 MG/2.5ML INH SOL NEB SCH ×6 (02:00→22:30)
[2020-01-04] MEDS: MEROPENEM 1GM IVPB 100 ML IV SCH (03:59)
[2020-01-04 05:36] LABS: Basophils # (auto) 0.2 10 ^3/uL (0-0.2); Basophils % (auto) 2.9 % (0.0-2.0); Eosinophils # (auto) 0.2 10 ^3/uL (0-0.8); Lymphocytes # (auto) 1.2 10 ^3/uL (0.4-5.4); Monocytes # (auto) 0.6 10 ^3/uL (0-1.3)
[2020-01-04 05:38] LABS: Hematocrit 23.1 % (36.0-46.0); Hemoglobin 7.6 g/dL (12.2-16.2); Mean Corpuscular Hemoglobin 29.2 pg (28.0-32.0); Mean Corpuscular Volume 88.4 fL (80.0-100.0); Monocytes % (auto) 9.6 % (0.0-12.0); Neutrophils % (auto) 65.5 % (37.0-80.0); Platelet Count (auto) 331 10^3/uL (140-450); Red Blood Cells 2.62 10^6/uL (4.0-5.20); Red Cell Distribution Width 16.5 % (11.8-14.3); White Blood Cell 6.1 10^3/uL (4.4-10.8)
[2020-01-04 05:53] LABS: Calcium 8.9 mg/dL (8.5-10.1); Potassium 3.6 mmol/L (3.5-5.1)
[2020-01-04 05:55] LABS: BUN/Creatinine Ratio 20.7
[2020-01-04 06:00] VITALS: BP 123/73
--- NOTE | 2020-01-04 07:09 | NUR ---
OPENING SHIFT NOTE ASSUMED CARE OF PATIENT FROM SMOKE CONTROL SUPERVISOR RN CARLOS. PATIENT IS AWAKE AND ORIENTED X3 (NAME, PLACE, AND SITUATION). REORIENTED PATIENT TO TIME. UPDATED PATIENT ON POC, PATIENT VERBALIZED UNDERSTANDING UNDERSTANDING. BED IS IN LOWEST POSITION WITH SIDE RAILS RAISED X2, HOB >30, BED WHEELS LOCKED, BED ALARM ON, [place] IS HANGING BELOW BLADDER DRAINING YELLOW URINE, AND CALL LIGHT IS WITHIN REACH. WILL CONTINUE TO MONITOR.
[2020-01-04 07:56] VITALS: BP 121/73
[2020-01-04] MEDS: Glucerna Carbsteady SHAKE Vanilla 8oz PO SCH ×3 (08:00→17:43)
--- NOTE | 2020-01-04 08:13 | NUR ---
MD ULLOA AT BEDSIDE UPDATED MD ON PATIENT'S STATUS. PER MD PATIENT'S RIGHT PUPIL IS LARGER THAN THE LEFT. MD ORDERED MRA OF NECK AND CT CHEST WITHOUT CONTRAST WILL FOLLOW THROUGH WITH ORDERS.
--- NOTE | 2020-01-04 08:45 | NUR ---
RECEIVED CALL FROM BARON FROM MRI. PER BARON, PATIENT DOES NOT NEED TO NPO FOR MRA
[2020-01-04 09:05] VITALS: BP 121/73
[2020-01-04] MEDS: PANTOPRAZOLE 40 MG/10 ML VIAL INJ IV SCH (11:00)
[2020-01-04] MEDS: ENOXAPARIN SOD 30 MG/0.3 ML SYRINGE SC SCH (11:00)
[2020-01-04] MEDS: MICAFUNGIN SODIUM 100 MG in SODIUM CHL 0.9% 100 ML IV SCH (11:01)
--- NOTE | 2020-01-04 11:45 | NUR ---
MD OCHOA AT BEDSIDE. 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 MD IS AWARE AND WILL CANCEL EEG ORDER AND WILL PUT IN ORDER FOR SNF PLACEMENT. WILL FOLLOW THROUGH WITH ORDERS.
[2020-01-04] MEDS ORDERED: POTASSIUM EFFERVESENT TAB 25 MEQ PO ONE (12:00)
[2020-01-04] MEDS ORDERED: FUROSEMIDE 40 MG TAB PO ONE (12:00)
[2020-01-04 12:30] VITALS: BP 121/68
--- NOTE | 2020-01-04 14:20 | NUR ---
SOCIAL SERVICE CALL RECEIVED CALL FROM PAINTINGS CONSERVATOR LIONEL. PER LIONEL SON DOES NOT WANT PATIENT TO GO TO SNF AND PREFERS HOME HEALTH. PAGED MD OCHOA.
--- NOTE | 2020-01-04 14:35 | NUR ---
SPOKE WITH MD OCHOA AND INFORMED HIM SON DOES NOT WANT SNF PLACEMENT FOR HIS MOM. ORDERED SNF PLACEMENT TO BE CANCELLED AND ORDERED HOME HEALTH. WILL FOLLOW THROUGH WITH ORDERS.
--- NOTE | 2020-01-04 15:00 | NUR ---
Nutrition Followup Notes Wt: 73.4 kg Pt was sleeping when rounded this morning. Pt diet advanced to a Pureed diet, appetite is fair aeb 50% PO intake per RN doc. Noted pt has order to receive Ensure Enlive at dinner this evening per diet aid. Pt with no distress per RN doc. Will continue to monitor PO status, skin status, pertinent labs and weight trends. Will f/u in 3-5 days. Est Energy needs ABW 57 [id number] kcals (20-23 kcal/kgBW), Est Protein needs: 57-68 gms/day (1.0-1.2 gm/kgBW r/t severe hypoalb). Will continue to monitor and reassess prn. LABS: Na 135 L, Alb 1.8 L GI: Pt had 1 BM 01/02 per RN doc BS: 14 mod risk, Please refer to wound assessment report for full details. PES: Altered nutrition related lab values r/t current chronic medical condition aeb severe hypoalbuminemia Partially resolved, pending swallow eval by Speech Therapist: Impaired swallowing r/t current medical condition aeb pt`s intubated sedated with order of NPO Comments Will continue to closely monitor pertinent labs, NPO status and skin status prn. Will followup in 2-3 days 1) Advance diet as medically feasible. (Resolved) 2) Consider prostat 1 packet bid. 3) Continue current plan of care
--- NOTE | 2020-01-04 16:17 | NUR ---
SS consult for discharge planning to SNF. Contacted pt's son, Patrice, to discuss discharge plan to SNF. Patrice stated he did not want pt to go to SNF and wanted her home. He became upset and stated it's too soon to discuss this and that I was " jumping the gun". Explained this is a discharge plan only and I needed information to determine her needs. He agreed to Home Health physical therapy and a FWW but declined to discuss any further. Advise nurse, Nuvia, that the order needed to be changed and to please notify MD. Will continue to provide intervention and follow up as needed.
[2020-01-04 17:10] VITALS: BP 136/72
[2020-01-04] MEDS: FERROUS SULFATE 325 MG TAB PO SCH (17:43)
--- NOTE | 2020-01-04 19:18 | NUR ---
CLOSING SHIFT NOTE ENDORSED CARE TO BLACK BELT RN CARLOS. PATIENT HAS NO S/S OF DISTRESS/SOB OR PAIN AT THIS TIME.
--- NOTE | 2020-01-04 19:35 | NUR ---
Opening Shift Note Assumed care of patient. Upon entering room, patient eyes closed. Patient opens eyes to voice or name. Patient does not appear to be in any S/S of distress/SOB, she denies pain. Patient is AOx3. Fall and safety precautions in place. Call light within reach. Patient on 1 L NC with adequate oxygen saturation. Indwelling catheter intact hung below draining well, with securement device in place. No trauma or leakage observed. Patient educated on her plan of care, pt verbalized understanding and in agreement. Will continue to monitor for changes Q1hr and PRN.
--- NOTE | 2020-01-04 20:10 | NUR ---
Dinner Refusal Patient's dinner tray on patient table with no evidence of intake. Patient educated on meeting nutritional needs with adequate oral intake, patient verbalized understanding and refuses meal. Patient educated reinforced and patient continues to refuse. Patient offered water and accepts. Patient offered icecream and accepts, fed with max assist consuming all of icecream. Patient then offered other options on tray and patient refuses additional options. Will continue to monitor.
[2020-01-04] MEDS: DOXYCYCLINE 100 MG TAB/CAP PO SCH (21:14)
[2020-01-04 22:00] VITALS: BP 130/71
[2020-01-05] MEDS: ALBUTEROL SULF 2.5 MG/0.5ML(0.5%) NEB SOLN NEB SCH ×6 (02:30→22:33)
[2020-01-05] MEDS: IPRATROPIUM BROM 0.5 MG/2.5ML INH SOL NEB SCH ×6 (02:30→22:33)
--- NOTE | 2020-01-05 02:30 | NUR ---
Respiratory note: SCHEDULED MED NEB TX NOT GIVEN. PT WAS ASLEEP AND DID NOT WANT TX AT THIS TIME. NO RESP DISTRESS NOTED.
[2020-01-05 05:52] VITALS: BP 125/67
[2020-01-05 08:50] VITALS: BP 136/73
[2020-01-05] MEDS: DOXYCYCLINE 100 MG TAB/CAP PO SCH ×2 (11:02→21:45)
[2020-01-05] MEDS: FERROUS SULFATE 325 MG TAB PO SCH ×2 (11:02→17:57)
[2020-01-05] MEDS: MICAFUNGIN SODIUM 100 MG in SODIUM CHL 0.9% 100 ML IV SCH (11:02)
--- NOTE | 2020-01-05 11:02 | NUR ---
WOUND CARE NOTE: Wound care in to see patient for skin integrity monitoring. Patient continue resting on air mattress in Rm. 275B. Patient is awake, alert and follow simple direction. Patient is in no stated pain at this time and she appears to be in no pain using Pat Bellamy Faces Pain Scale. Patient needs assistance in turning and repositioning. Her Juanito score is 12. Skin assessment done with the assistance of patient's nurse, BRYCE Ravi. Patient's Rt and Lt cheeks erythema continue to improve; skin remain intact with fading erythema. Ecchymosis to bilateral arms are fading as well. No pressure injury noted. New photograph of mentioned skin issue are taken for reference. Patient tolerated well, repositioned for comfort facing her Lt. side, redistributed pressure points with pillows. BRYCE Ravi at bedside. RECOMMENDATION: Continuation of all wound care orders prescribed by MD, Continue with skin/wound plan of care, continue monitoring by wound care while patient is hospitalized. Addendum: 01/05/20 at 1659 by Monica Cummins RN Amended: Links added.
[2020-01-05] MEDS: ENOXAPARIN SOD 30 MG/0.3 ML SYRINGE SC SCH (11:03)
[2020-01-05] MEDS: FAMOTIDINE 20 MG TAB PO SCH (11:03)
[2020-01-05] MEDS: Glucerna Carbsteady SHAKE Vanilla 8oz PO SCH ×3 (11:03→17:57)
--- NOTE | 2020-01-05 11:51 | NUR ---
FOUND PATIENT DENTURE IN BELONGINGS BAG AND PLACED IT AT BEDSIDE. PT REPORTS SHE ONLY HAS ONE DENTURE. SADIE BROUGHT TO PATIENT PER PATIENT SON REQUEST.
--- NOTE | 2020-01-05 12:44 | NUR ---
PT RETURNED TO FLOOR FROM ENGINEERING ANALYST, ENGINEERING ANALYST REPORTS HE HAD A STENT PLACED IN DANIEL FISTULA AND DILATED IT. PT REPORTS NO PAIN AT THIS TIME. VITALS: 147/96, HR 87, 02 99% ON RA, RR 18. DANIEL FISTULA SITE COVERED WITH CLEAR TEGADERM, NO DRAINAGE NOTED AT SITE. DRESSING CDI. ASKED RADIOLOGY IF PT CAN HAVE DIALYSIS TODAY, THEY REPORT, "NO, YOU NEED CLEARANCE FROM DR MCKNIGHT BEFORE USING THE FISTULA." CALLED PBX TO PAGE DR MCKNIGHT, PBX REPORTS THEY DO NOT HAVE A NUMBER FOR HIM. CALLED RADIOLOGY TO GET NUMBER, NO ANSWER. DIALYSIS NURSE HERE FROM [facility] TO DIALYZE PATIENT. NOTIFIED HER WE ARE UNABLE TO USE FISTULA YET. DIALYSIS NURSE CALLED DR FAGAN AND NOTIFIED HIM. AWARE, NEW ORDERS FOR CMP. REPORTS IF POTASSIUM IS HIGH THEN PT WILL NEED TEMPORARY ACCESS PLACED. Addendum: 01/05/20 at 1253 by RADHA DAN RN WRONG PATIENT
--- NOTE | 2020-01-05 12:58 | NUR ---
PHYSICAL THERAPY GOT PATIENT UP TO CHAIR, PT REPORTS EXTREME ANXIETY AND DOES NOT WANT TO BE LEFT ALONE IN CHAIR. EILEEN SPOKE WITH PATIENT AND PT CALMED DOWN A LITTLE BUT REPORTS ANXIETY, CALLED DR OCHOA AND REQUESTED ANXIETY MED. NEW ORDERS FOR ATIVAN.
[2020-01-05 13:00] VITALS: BP 122/79
--- NOTE | 2020-01-05 13:10 | NUR ---
PT HAD EPISODE OF DIARRHEA, PT MOVED FROM CHAIR TO BED AND PT CLEANED, CHUCKS, GOWN AND BEDDING CHANGED. FLOOR AND CHAIR CLEANED. DAG SPRAYER REPORTS PT HASN'T EATEN ALL DAY, NOTIFIED DR OCHOA. AWARE. DR OCHOA REPORTS TO HOLD ATIVAN IF PT BACK IN BED.
[2020-01-05] MEDS ORDERED: LORazepam 2MG/ML-1ML VIAL IV ONE (13:15)
--- NOTE | 2020-01-05 16:55 | NUR ---
DDC'D [place] PER MD ORDER. APPROX 5 MLS 0.9 NS PULLED FROM BALLOON. APPROX 150 MLS CLEAR YELLOW/STRAW URINE NOTED IN [place]. PT TOLERATED PROCEDURE WELL. PT INSTRUCTED TO USE CALL LIGHT WHEN SHE NEEDS TO VOID FOR ASSISTANCE.
[2020-01-05 17:00] VITALS: BP 126/73
--- NOTE | 2020-01-05 18:41 | NUR ---
Pt ate all her applesauce and vanilla pudding, but reports she did not want the rest of her dinner.
[2020-01-05 18:55] VITALS: BP 126/73
--- NOTE | 2020-01-05 21:15 | NUR ---
Report given to Beth Valiente, to assume the care.
--- NOTE | 2020-01-05 21:20 | NUR ---
Opening Shift Note Received report/SBAR for RN Thalia. Assumed care of patient, awake and alert. No S/S of distress/SOB or pain. Patient has not voided after ceballos was DC at 1700, will continue to monitor. Instructed on POC and to call for assist PRN, will continue to monitor for changes Q1hr and PRN.
[2020-01-05 21:30] VITALS: BP 130/76
--- NOTE | 2020-01-06 01:00 | NUR ---
No Void Patient has not voided after 8hrs of ceballos DC, bladder scan showed 126 ml of urine, patient stated she has no urge to urinate, will continue to monitor.
[2020-01-06] MEDS: ALBUTEROL SULF 2.5 MG/0.5ML(0.5%) NEB SOLN NEB SCH ×6 (02:33→22:01)
[2020-01-06] MEDS: IPRATROPIUM BROM 0.5 MG/2.5ML INH SOL NEB SCH ×6 (02:33→22:01)
[2020-01-06 05:00] VITALS: BP 131/69
--- NOTE | 2020-01-06 05:00 | NUR ---
No Void Patient has not voided. Bladder scanner showed 260 ml of urine, bladder is not distended, patient feels no pain and has no urge to urinate.
[2020-01-06 06:17] LABS: Basophils # (auto) 0.2 10 ^3/uL (0-0.2); Basophils % (auto) 3.1 % (0.0-2.0); Eosinophils # (auto) 0.1 10 ^3/uL (0-0.8); Eosinophils % (auto) 1.4 % (0.0-7.0); Hemoglobin 8.5 g/dL (12.2-16.2); Lymphocytes # (auto) 1.4 10 ^3/uL (0.4-5.4); Lymphocytes % (auto) 18.6 % (10.0-50.0); Mean Corpuscular Hemoglobin 29.4 pg (28.0-32.0); Mean Corpuscular Hgb Conc. 32.7 g/dL (32.0-36.0); Monocytes # (auto) 0.8 10 ^3/uL (0-1.3); Monocytes % (auto) 11.2 % (0.0-12.0); Neutrophils # (auto) 4.9 10 ^3/uL (1.6-8.6); Neutrophils % (auto) 65.7 % (37.0-80.0); Nucleated Red Blood Cells % 0.1 %; Platelet Count (auto) 363 10^3/uL (140-450); Red Blood Cells 2.88 10^6/uL (4.0-5.20); Red Cell Distribution Width 16.8 % (11.8-14.3); White Blood Cell 7.4 10^3/uL (4.4-10.8)
--- NOTE | 2020-01-06 07:25 | NUR ---
Closing Note Patient status unchanged, endorsed care to dayshift nurse.
--- NOTE | 2020-01-06 07:30 | NUR ---
Opening Shift Note Assumed care of patient, awake and alert. No S/S of distress/SOB or pain. Bed is low, locked with 2x side rails up. Call light is within reach. Instructed on POC and to call for assist PRN, will continue to monitor for changes Q1hr and PRN.
[2020-01-06] MEDS: DOXYCYCLINE 100 MG TAB/CAP PO SCH ×2 (08:32→22:36)
[2020-01-06] MEDS: FAMOTIDINE 20 MG TAB PO SCH (08:32)
[2020-01-06] MEDS: ENOXAPARIN SOD 30 MG/0.3 ML SYRINGE SC SCH (08:32)
[2020-01-06] MEDS: FERROUS SULFATE 325 MG TAB PO SCH ×2 (08:32→18:06)
[2020-01-06] MEDS: MICAFUNGIN SODIUM 100 MG in SODIUM CHL 0.9% 100 ML IV SCH (08:33)
[2020-01-06] MEDS: Glucerna Carbsteady SHAKE Vanilla 8oz PO SCH ×3 (08:54→18:06)
[2020-01-06 09:00] VITALS: BP 134/76
[2020-01-06 12:50] VITALS: BP 128/67
--- NOTE | 2020-01-06 14:30 | NUR ---
Ceballos catheter insertion Patient assessed and determined to be in need of ceballos catheter. Bladder scan revealed 465 ml of urine residual. Order obtained from MD. Patient educated on catheter and reason for insertion. All questions answered. Ceballos catheter 16 gauge English inserted with clean sterile technique. Patient tolerated well.
--- NOTE | 2020-01-06 15:31 | NUR ---
Paging PT Paging physical therapy per Dr Gaitan's request. would like for patient to participate in physical therapy again. Waiting for call back.
--- NOTE | 2020-01-06 15:45 | NUR ---
Physical Therapy PTKalen is at bedside to assist patient with a second round of physical therapy.
[2020-01-06 16:50] VITALS: BP 130/77
--- NOTE | 2020-01-06 17:57 | NUR ---
Spoke with family Spoke with son Patrice after verifying password. Updated son on patient's current status and POC. All questions answered.
--- NOTE | 2020-01-06 19:15 | NUR ---
Opening Shift Note Assumed care of patient, awake and alert. No S/S of distress/SOB or pain. Instructed on POC and to call for assistance as needed, will continue to monitor for changes Q1hr and PRN.
[2020-01-06 22:00] VITALS: BP 126/69
[2020-01-07] MEDS: ALBUTEROL SULF 2.5 MG/0.5ML(0.5%) NEB SOLN NEB SCH ×6 (02:00→21:46)
[2020-01-07] MEDS: IPRATROPIUM BROM 0.5 MG/2.5ML INH SOL NEB SCH ×6 (02:00→21:47)
--- NOTE | 2020-01-07 02:01 | NUR ---
Respiratory note: SCHEDULED MED NEB TX NOT GIVEN. PT WAS ASLEEP AND DID NOT WANT TX AT THIS TIME. NO RESP DISTRESS NOTED.
[2020-01-07 05:00] VITALS: BP 130/70
[2020-01-07 09:00] VITALS: BP 133/76
[2020-01-07] MEDS: ENOXAPARIN SOD 30 MG/0.3 ML SYRINGE SC SCH (09:39)
[2020-01-07] MEDS: DOXYCYCLINE 100 MG TAB/CAP PO SCH ×2 (09:39→21:58)
[2020-01-07] MEDS: FLUCONAZOLE 100 MG TAB PO SCH ×2 (09:39→10:00)
[2020-01-07] MEDS: FERROUS SULFATE 325 MG TAB PO SCH ×2 (09:39→18:29)
[2020-01-07] MEDS: FAMOTIDINE 20 MG TAB PO SCH (09:39)
[2020-01-07] MEDS: Glucerna Carbsteady SHAKE Vanilla 8oz PO SCH ×3 (09:40→18:29)
--- NOTE | 2020-01-07 10:00 | NUR ---
PATIENT SWALLOWED ALL MEDICATIONS THIS MORNING EXCEPT HER DIFLUCAN. SHE STATES IT FEELS LIKE THE PILLS ARE STUCK IN HER THROAT AND SHE CANT FINISH THE REST OF HER MEDICATIONS. WILL LET DR. OCHOA KNOW WHEN HE ROUNDS THIS MORNING
--- NOTE | 2020-01-07 11:11 | NUR ---
PHYSICAL THERAPY AT PATIENTS BEDSIDE TO TRANSFER PATIENT TO CHAIR. PATIENT NOT TOLERATING TRANSFER AND PER PHYSICAL THERAPY HER OXYGEN SATURATION WENT DOWN IN THE LOW 80'S. PATIENT PLACED BACK IN BED AND RESTING WITH OXYGEN SATURATION AT 90%. WILL RECHECK AND CONTINUE TO MONITOR.
[2020-01-07 13:00] VITALS: BP 127/77
--- NOTE | 2020-01-07 13:08 | NUR ---
re-assessment Per consult DC planning ?SNF, discuss with son. I called patients son Patrice to discuss patients discharge plan home or to SNF. Patrice informed me he does not want patient to go to SNF and wants patient to return home. Patrice became very upset and request to Speak with Dr Gaitan. Per Patrice he does not understand why patient is deconditioned. I informed Dr Gaitan of Patrice's request. Per Dr Gaitan he will call Patrice. Patrice did agree to Home Health physical therapy and a Fww. Patrice refused SNF. Will continue to monitor and follow up as appropriate. Addendum: 01/07/20 at 1314 by Emmy Romero Amended: Links added.
--- NOTE | 2020-01-07 15:00 | NUR ---
Nutrition Followup Notes Wt: 73.7 kg Pt was sleeping when rounded this morning. Pt is with a Pureed diet, appetite is poor aeb ave 21% PO intake per RN doc. Pt with no distress per RN doc. Will continue to monitor PO status, skin status, pertinent labs and weight trends. Will f/u in 3-5 days. Est Energy needs ABW 57 [id number] kcals (20-23 kcal/kgBW), Est Protein needs: 57-68 gms/day (1.0-1.2 gm/kgBW r/t severe hypoalb). Will continue to monitor and reassess prn. LABS: Na 135 L, Alb 1.8 L GI: Pt had 1 BM 01/05 per RN doc BS: 15 mod risk, Please refer to wound assessment report for full details. PES: Altered nutrition related lab values r/t current chronic medical condition aeb severe hypoalbuminemia Partially resolved, pending swallow eval by Speech Therapist: Impaired swallowing r/t current medical condition aeb pt`s intubated sedated with order of NPO Comments Will continue to closely monitor pertinent labs, NPO status and skin status prn. Will followup in 2-3 days 1) Advance diet as medically feasible. (Resolved) 2) Consider prostat 1 packet bid. 3) Continue current plan of care
[2020-01-07 17:00] VITALS: BP 144/80
--- NOTE | 2020-01-07 19:15 | NUR ---
Opening Shift Note Assumed care of patient, awake and alert. Patient is sitting up in bed. No S/S of distress/SOB or pain. NC is in place and currently at 2 L of O2. Instructed on POC and to call for assist PRN, will continue to monitor for changes Q1hr and PRN.
--- NOTE | 2020-01-07 20:45 | NUR ---
SPOKE TO SON The patient's son, Patrice, after verifying password. Updated Patrice on the patient's POC and answered all of his questions.
[2020-01-07 22:00] VITALS: BP 124/71
[2020-01-08] MEDS: IPRATROPIUM BROM 0.5 MG/2.5ML INH SOL NEB SCH ×6 (02:00→22:21)
[2020-01-08] MEDS: ALBUTEROL SULF 2.5 MG/0.5ML(0.5%) NEB SOLN NEB SCH ×6 (02:00→22:21)
--- NOTE | 2020-01-08 02:00 | NUR ---
Respiratory note: SCHEDULED MED NEB TX NOT GIVEN. PT WAS ASLEEP AND DID NOT WANT TX AT THIS TIME. NO RESP DISTRESS NOTED.
[2020-01-08 05:16] VITALS: BP 131/64
[2020-01-08] MEDS: FERROUS SULFATE 325 MG TAB PO SCH ×2 (08:53→18:35)
[2020-01-08] MEDS: Glucerna Carbsteady SHAKE Vanilla 8oz PO SCH ×3 (08:53→18:36)
[2020-01-08] MEDS: FLUCONAZOLE 100 MG TAB PO SCH (08:54)
[2020-01-08] MEDS: DOXYCYCLINE 100 MG TAB/CAP PO SCH ×2 (08:54→22:00)
[2020-01-08] MEDS: ENOXAPARIN SOD 30 MG/0.3 ML SYRINGE SC SCH (08:54)
[2020-01-08] MEDS: FAMOTIDINE 20 MG TAB PO SCH (08:55)
[2020-01-08 09:00] VITALS: BP 133/74
--- NOTE | 2020-01-08 11:40 | NUR ---
Dr. Medellin at bedside with patient to discuss plan of care
--- NOTE | 2020-01-08 11:42 | NUR ---
Physical Therapy at bedside to work with patient
[2020-01-08 13:00] VITALS: BP 134/69
--- NOTE | 2020-01-08 16:12 | NUR ---
D/C planning Per SS consult for SNF placement. Per SW II Emmy patient family agree for patient to be placed at [facility]. Faxed clinica information to [facility]. Per Niru with [facility] ) or ) they do not have any bed availability and to follow up with her tomorrow Saturday.
[2020-01-08 17:00] VITALS: BP 135/76
--- NOTE | 2020-01-08 19:10 | NUR ---
pening Shift Note Assumed care of patient, awake and alert. Patient is sitting up on speciality mattress. No S/S of distress/SOB or pain. NC is in place and currently at 2 L of O2. Instructed on POC and to call for assist PRN, will continue to monitor for changes Q1hr and PRN.
[2020-01-08 22:00] VITALS: BP 137/76
[2020-01-09 02:15] VITALS: BP 135/76
[2020-01-09] MEDS: IPRATROPIUM BROM 0.5 MG/2.5ML INH SOL NEB SCH ×6 (02:15→21:49)
[2020-01-09] MEDS: ALBUTEROL SULF 2.5 MG/0.5ML(0.5%) NEB SOLN NEB SCH ×6 (02:15→21:49)
--- NOTE | 2020-01-09 02:15 | NUR ---
Respiratory note: PT REFUSED SCHED MED NEB TX AT THIS TIME. PT SHOWS NO S/S OF SOB OR RESPIRATORY DISTRESS. WILL CONTINUE TO MONITOR.
[2020-01-09 05:00] VITALS: BP 135/72
--- NOTE | 2020-01-09 07:30 | NUR ---
Opening Shift Note Assumed care of patient, resting in bed with eyes closed. No S/S of distress/SOB or pain. Specialty mattress in place in lowest locked position with side rails up x 2 for safety and call light is within reach, bed alarm is set on. Will continue to monitor for changes Q1hr and PRN.
[2020-01-09] MEDS: Glucerna Carbsteady SHAKE Vanilla 8oz PO SCH ×3 (08:17→18:03)
[2020-01-09] MEDS: FERROUS SULFATE 325 MG TAB PO SCH ×2 (08:17→18:03)
[2020-01-09 09:00] VITALS: BP 142/79
[2020-01-09] MEDS: FAMOTIDINE 20 MG TAB PO SCH (10:02)
[2020-01-09] MEDS: FLUCONAZOLE 100 MG TAB PO SCH (10:02)
[2020-01-09] MEDS: DOXYCYCLINE 100 MG TAB/CAP PO SCH ×2 (10:02→21:15)
[2020-01-09] MEDS: ENOXAPARIN SOD 30 MG/0.3 ML SYRINGE SC SCH (10:02)
[2020-01-09 13:00] VITALS: BP 128/70
--- NOTE | 2020-01-09 13:21 | NUR ---
RT NOTE: PT REFUSED TX AT THIS TIME. NO SIGNS OF DISTRESS NOTED. LUNG SOUNDS CLEAR/DIMINISHED. ON 2L NC SPO2 98 HR 110 RR 22. PT AWARE RESPIRATORY WILL RETURN FOR NEXT SCHEDULED TX. WILL CONTINUE TO MONITOR.
[2020-01-09 17:42] VITALS: BP 137/78
--- NOTE | 2020-01-09 19:30 | NUR ---
Opening Shift Note Assumed care of patient, awake and alert. No S/S of distress or pain. Pt requested sandwich; RN reminded her of pureed diet and offered gelatin. Pt accepted; became SOB with eating of gelatin as RN fed her. Cont to refuse RT txs. Instructed on POC and to call for assist PRN, will continue to monitor for changes Q1hr and PRN. Special bed low with HOB Ta's position. Call light within pt's reach.
--- NOTE | 2020-01-09 19:32 | NUR ---
RT NOTE PT SEEN BY RT FOR HHN TX. PT STATES SHE DOESN'T WANT TX AT ALL. HR 105, RR 118, BS CLEAR/DIM, POX 96% ON 2L NASAL CANNULA. NO SOB OR DISTRESS NOTED. NO TX GIVEN. BRYCE CAT NOTIFIED. CONT ORDERED Addendum: 01/09/20 at 2134 by Carmel Almaraz RT Amended: Links added.
--- NOTE | 2020-01-09 21:49 | NUR ---
RT NOTE PT WAS SEEN BY RT FOR HHN TX.. PT REFUSED HHN TX FOR THE REST OF THE NIGHT. HR 104, RR 18, BS CLEAR, POX 96% ON 2L NASAL CANNULA. NO SOB OR DISTRESS NOTED. PT STATES SHE WILL CALL IF TX NEEDED. BRYCE CAT NOTIFIED. CONT ORDERED Addendum: 01/09/20 at 2226 by Carmel Almaraz RT Amended: Links added.
[2020-01-09 22:00] VITALS: BP 135/73
[2020-01-10] MEDS: IPRATROPIUM BROM 0.5 MG/2.5ML INH SOL NEB SCH ×6 (00:03→22:00)
[2020-01-10] MEDS: ALBUTEROL SULF 2.5 MG/0.5ML(0.5%) NEB SOLN NEB SCH ×6 (00:04→22:00)
--- NOTE | 2020-01-10 02:20 | NUR ---
RT NOTE PT REFUSED TX EARLIER FOR THE NIGHT. NO SOB OR DISTRESS NOTED. HR 97, RR 18, BS CLEAR/DIM, POX 95% ON 2L NASAL CANNULA. NO SOB OR DISTRESS NOTED. PT AWARE TO CALL IF TX NEEDED. CONT ORDERED Addendum: 01/10/20 at 0238 by Carmel Almaraz RT Amended: Links added.
--- NOTE | 2020-01-10 03:29 | NUR ---
In to pt's room with RAILWAY SIGNALLING ENGINEER to turn pt to L side. Pt's skin wm to touch and dry. Temp taken 98.0 orally.
[2020-01-10 05:41] VITALS: BP 138/73
--- NOTE | 2020-01-10 07:42 | NUR ---
Opening Note Assumed pt care from NOC RN. Pt is a/ox4 with no s/s of distress or SOB. Pt is currently laying in bed on 3L via NC. Currie is present, draining to gravity and free of kinks. Discussed POC with pt; pt verbalized understanding. Safety measures maintained with call light within reach, bed in lowest position and side rails up. Will continue to monitor.
[2020-01-10] MEDS: FERROUS SULFATE 325 MG TAB PO SCH ×2 (07:49→17:38)
[2020-01-10] MEDS: Glucerna Carbsteady SHAKE Vanilla 8oz PO SCH ×3 (07:49→18:20)
[2020-01-10] MEDS: ENOXAPARIN SOD 30 MG/0.3 ML SYRINGE SC SCH (09:08)
[2020-01-10] MEDS: FAMOTIDINE 20 MG TAB PO SCH (09:08)
[2020-01-10] MEDS: DOXYCYCLINE 100 MG TAB/CAP PO SCH ×2 (09:08→21:47)
[2020-01-10] MEDS: FLUCONAZOLE 100 MG TAB PO SCH (09:09)
--- NOTE | 2020-01-10 09:20 | NUR ---
Dr Ugalde at Bedside MD to see pt. Updated on pt's status. No new orders at this time. Will continue to monitor.
--- NOTE | 2020-01-10 10:17 | NUR ---
Dr Medellin at Bedside MD to see pt. Discussed POC and plan to d/c to SNF tomorrow. No new orders at this time. Will continue to monitor.
--- NOTE | 2020-01-10 10:40 | NUR ---
pt report sob pt on 2l nc o2 saturation 91% rr28 b/p 144/70 h/r -115. hob raised o2 increased to 3l o2 saturation 93% and inform pt of breathing treatment and pt refuse breathing treatment. pt educated on befits and risk of breathing treatment. pt verbalize refusal 2245 pt request breathing treatment b/p 103/85 o2 saturation 93%.rt page at 2250 . 2250 rt at bedside. Addendum: 01/11/20 at 0346 by EMILIE HAQUE RN at 223901/10/20
[2020-01-10 11:08] VITALS: BP 135/71
--- NOTE | 2020-01-10 12:18 | NUR ---
Nutrition Followup Notes Wt: 73.7 kg Pt was sleeping when rounded this morning. Pt is with a 2 gm na Pureed diet nectar thick liq, with glucerna 1 carton tid with inadequate PO of 255 x 4 per RN doc Est Energy needs ABW 57 [id number] kcals (20-23 kcal/kgBW), , Est Protein needs: 57-68 gms/day (1.0-1.2 gm/kgBW r/t severe hypoalb). Will continue to monitor and reassess prn. LABS: ALB 1.8 L. GI: Pt had 3 BM 01/05 per RN doc BS: 15 mod risk, Please refer to wound assessment report for full details. PES: Altered nutrition related lab values r/t current chronic medical condition aeb severe hypoalbuminemia Partially resolved, pending swallow eval by Speech Therapist: Impaired swallowing r/t current medical condition aeb pt`s intubated sedated with order of NPO Comments Will continue to closely monitor pertinent labs, PO intake, and skin status prn. Will followup in 3-5 days 1) Consider prostat 1 packet bid. 2) continue assistance with meals. 3) Continue current plan of care
--- NOTE | 2020-01-10 12:57 | NUR ---
Lunch Pt stated that she could not eat the pureed food at this time due to its taste. Pt requests that we attempt to consume a sandwich. Provided pt with sandwich cut into very small pieces. Pt placed in high fowlers at 90 degrees. Pt is tolerating consumption well at this time and is educated on need to be mindful and slow while eating. Will continue to monitor. Addendum: 01/10/20 at 1451 by KAI ANTHONY RN RN Pt was able to take a couple bites without difficulty. Pt did not complete meal stating "I'm done". Will continue to monitor and encourage intake of nutrition.
[2020-01-10 13:00] VITALS: BP 131/78
[2020-01-10 17:00] VITALS: BP 132/71
--- NOTE | 2020-01-10 18:05 | NUR ---
Respiratory note: SCHEDULED MED NEB TX NOT GIVEN. PT WAS AWAKE AND ALERT, NO RESP DISTRESS NOTED.HR 114, RR 20, SPO2 94% ON 2L N/C. BS ARE CLEAR AND DIMINISHED.
--- NOTE | 2020-01-10 19:10 | NUR ---
Opening Note Assumed pt care from day shift RN. Pt is a/ox4 with no s/s of distress or SOB. Pt is currently laying in bed on 2L via NC. Currie is present, draining to gravity and free of kinks. Discussed POC with pt; pt verbalized understanding. Safety measures maintained with call light within reach, bed in lowest position and side rails up. Will continue to monitor. fall precaution in place
--- NOTE | 2020-01-10 21:26 | NUR ---
Spoke with son King whom provided patient password. King updated on poc. Son king stated he does not want mother to go to a SNF, son wants home health for mother. will endorse care to dayshift RN to notify
[2020-01-10 22:00] VITALS: BP 129/94
[2020-01-10 22:30] VITALS: BP 129/94
--- NOTE | 2020-01-10 23:23 | NUR ---
pt is resting in bed denies sob distress or pain
[2020-01-11] MEDS: ALBUTEROL SULF 2.5 MG/0.5ML(0.5%) NEB SOLN NEB SCH ×6 (02:05→21:56)
[2020-01-11] MEDS: IPRATROPIUM BROM 0.5 MG/2.5ML INH SOL NEB SCH ×6 (02:05→21:56)
[2020-01-11 05:00] VITALS: BP 137/79
--- NOTE | 2020-01-11 06:20 | NUR ---
pt had bm change chucks and reposition. skin intact
--- NOTE | 2020-01-11 07:15 | NUR ---
end of shift notes endorse pt care to day shift rn . pt a0x4, no s/s of distress or sob and no pain. fall precaution in place
[2020-01-11] MEDS: Glucerna Carbsteady SHAKE Vanilla 8oz PO SCH ×3 (08:00→17:31)
[2020-01-11] MEDS: FERROUS SULFATE 325 MG TAB PO SCH ×2 (08:16→17:28)
[2020-01-11 09:00] VITALS: BP 137/70
[2020-01-11] MEDS: FLUCONAZOLE 100 MG TAB PO SCH (09:49)
[2020-01-11] MEDS: DOXYCYCLINE 100 MG TAB/CAP PO SCH (09:49)
[2020-01-11] MEDS: FAMOTIDINE 20 MG TAB PO SCH (09:49)
[2020-01-11] MEDS: ENOXAPARIN SOD 30 MG/0.3 ML SYRINGE SC SCH (09:49)
[2020-01-11] MEDS ORDERED: LOPERAMIDE HCL 2 MG CAP PO ONE (12:00)
--- NOTE | 2020-01-11 12:32 | NUR ---
re-assessment Per Patrice patients son he has decided to bring patient home on discharge. Patient will need a fww on discharge. Per Patrice he has purchased a wheelchair for transport. Per jake consult home [facility] and [facility] for PT. Patrice has been read a list of medicare providers. Per Patrice he has agreed to [facility]. Md order has been sent to [facility]. Waiting on reply back now. Addendum: 01/11/20 at 1234 by Emmy MAC Amended: Links added.
[2020-01-11] MEDS: ACETAMINOPHEN 500 MG TAB PO PRN (12:38)
[2020-01-11 13:00] VITALS: BP 128/72
--- NOTE | 2020-01-11 13:35 | NUR ---
Pt refused PM PT tx with continued c/o diarrhea. Addendum: 01/11/20 at 1444 by Kalen Irwin [facility] [employer] Amended: Links added.
--- NOTE | 2020-01-11 15:08 | NUR ---
PER RT PATIENT QUALIFIES FOR HOME O2
--- NOTE | 2020-01-11 15:31 | NUR ---
Home 02 order entered for home health care social worker to arrange for patient's DC tomorrow.
--- NOTE | 2020-01-11 15:37 | NUR ---
D/C Planning Per consult for walker and home oxygen at 3l/min. Faxed clinical information to [facility] requesting for medical equipment to be deliver to bedside. Per Nichole Ghotra order was received and they will deliver equipment to bedside upon d/c day and concentrate to home.
[2020-01-11 17:00] VITALS: BP 134/73
--- NOTE | 2020-01-11 19:55 | NUR ---
open note assumed care of pt. upon entering room pt eyes closed, breathing even and unlabored. pt on 3L nc no s/s distress visualized by this nurse. pt has ceballos secured, below the waist and draining clear yellow. bed locked, low and 2x rails up. this nurse to return at later time for update on plan of care. this nurse to round q1hr and prn. call light in reach.
[2020-01-11 22:00] VITALS: BP 132/65
[2020-01-12] MEDS: IPRATROPIUM BROM 0.5 MG/2.5ML INH SOL NEB SCH ×4 (01:45→13:51)
[2020-01-12] MEDS: ALBUTEROL SULF 2.5 MG/0.5ML(0.5%) NEB SOLN NEB SCH ×4 (01:45→13:51)
[2020-01-12 02:32] VITALS: BP 132/65
[2020-01-12 05:24] VITALS: BP 136/76
[2020-01-12] MEDS: Glucerna Carbsteady SHAKE Vanilla 8oz PO SCH ×2 (08:12→11:38)
[2020-01-12] MEDS: FERROUS SULFATE 325 MG TAB PO SCH (08:12)
[2020-01-12 09:00] VITALS: BP 121/69
--- NOTE | 2020-01-12 09:24 | NUR ---
Family updated Patrice called, discussed care of patient and that she is a max assist in all activities at this point, discussed home health and that they can't be in the home 24/ they only come for about an hour, if they assess that she has that need, he verbalized understanding, he stated he will be the one there for most of the time and he is aware of her needs.
[2020-01-12] MEDS: FLUCONAZOLE 100 MG TAB PO SCH (09:38)
[2020-01-12] MEDS: FAMOTIDINE 20 MG TAB PO SCH (09:38)
[2020-01-12] MEDS: ENOXAPARIN SOD 30 MG/0.3 ML SYRINGE SC SCH (09:39)
[2020-01-12] MEDS ORDERED: FLORASTOR (S. BOULARDII) 250 MG CAP PO SCH (10:00)
--- NOTE | 2020-01-12 10:00 | NUR ---
PT at bedside, patient able to dangle at bedside but did not tolerate it very well, sat up for a few minuets then wanted to go back to bed.
--- NOTE | 2020-01-12 12:14 | NUR ---
WOUND CARE NOTE: Wound care in to see patient for skin integrity monitoring. Patient continue resting on air mattress in Rm. 275B. Patient is awake, alert and follow simple direction. Patient is in no stated pain at this time and she appears to be in no pain using Pat Bellamy Faces Pain Scale. Patient s able to assist in turning and repositioning. Her Juanito score is 15. Skin assessment done with the assistance of nurse's aide. Patient's Rt and Lt cheeks erythema continue to improve; skin remain intact with fading erythema. Sacral and back and heels are examined, no pressure injury noted. New photograph of patient's L and Rt cheeks fading erythema are taken for reference. Patient tolerated well, repositioned patient for comfort facing her Lt. side, redistributed pressure points with pillows. Nurse's aide Jana at bedside. RECOMMENDATION: Continuation of all wound care orders prescribed by MD, Continue with skin/wound plan of care, continue monitoring by wound care while patient is hospitalized.
[2020-01-12 13:00] VITALS: BP 133/73
[2020-01-12 13:08] VITALS: BP 121/68
--- NOTE | 2020-01-12 13:35 | NUR ---
per family will be picked up at 1600
--- NOTE | 2020-01-12 15:15 | NUR ---
Patient family (Patrice) given Dc instructions, instructions also included in discharge packet. patient belongings place in belongings bag.
--- NOTE | 2020-01-12 16:27 | NUR ---
Per family, they needed to wait for wheelchair to come so they will be running later. Hoping ETA to be here at hospital by 5pm.
--- NOTE | 2020-01-12 17:17 | NUR ---
Patient taken out to vehicle with all belongings including her top denture which was in her mouth at time of DC. This was the only denture she brought with her to the hospital. Patient had walker and o2 as well.
--- NOTE | 2020-01-12 18:36 | NUR ---
ALTHOUGH NOT MARKED ON INVENTORY PATIENT HAD BOTTOM DENTURE WHICH SHE LEFT HERE. SHE STATED THEY WERE NOT HERS, HOWEVER THEY HAVE HER NAME ON THEM.CALLED SON TO LET HIM KNOW THEY WERE LEFT HERE WHO STATED "WELL THEY MUST BE HERS". DENTURES SENT TO CHARGE NURSE OFFICE.
== END 2020-01-12 17:15 | disposition home health service (06) | DRG 870 ==
LOC: ER 10:54 → OVERFLOW 10:55 → ICU WEST 18:15 → DOU IN ICU 12-18 23:50 → TELE-WESTW 12-31 06:30
PROVIDERS: ADMIT Nurse Practitioner Acute Care; ATTEND Internal Medicine
PROC: 5A1955Z Respiratory Ventilation, Greater than 96 Consecutive Hours (ICD-10-PCS; 2019-12-08)
PROC: 02HV33Z Insertion of Infusion Device into Superior Vena Cava, Percutaneous Approach (ICD-10-PCS; 2019-12-08)
PROC: B548ZZA Ultrasonography of Superior Vena Cava, Guidance (ICD-10-PCS; 2019-12-08)
PROC: 0BH17EZ Insertion of Endotracheal Airway into Trachea, Via Natural or Artificial Opening (ICD-10-PCS; 2019-12-08)
PROC: 0B9J8ZX Drainage of Left Lower Lung Lobe, Via Natural or Artificial Opening Endoscopic, Diagnostic (ICD-10-PCS; 2019-12-10)
PROC: 0B9D8ZX Drainage of Right Middle Lung Lobe, Via Natural or Artificial Opening Endoscopic, Diagnostic (ICD-10-PCS; principal; 2019-12-10 11:30)
DX: A41.9 Sepsis, unspecified organism (principal); J96.01 Acute respiratory failure with hypoxia; I50.41 Acute combined systolic (congestive) and diastolic (congestive) heart failure; J15.6 Pneumonia due to other Gram-negative bacteria; G92 Toxic encephalopathy; E44.0 Moderate protein-calorie malnutrition; N17.9 Acute kidney failure, unspecified; E87.0 Hyperosmolality and hypernatremia; N39.0 Urinary tract infection, site not specified; J98.11 Atelectasis; D50.8 Other iron deficiency anemias; M54.9 Dorsalgia, unspecified; E87.6 Hypokalemia; E04.1 Nontoxic single thyroid nodule; M54.5 Low back pain; Z86.73 Personal history of transient ischemic attack (TIA), and cerebral infarction without residual deficits; H57.02 Anisocoria; K80.20 Calculus of gallbladder without cholecystitis without obstruction; Z79.899 Other long term (current) drug therapy; Z20.828 Contact with and (suspected) exposure to other viral communicable diseases; Z68.28 Body mass index [BMI] 28.0-28.9, adult
CPT/HCPCS: 36415; 36600; 70450; 71045; 71250; 71275; 80048; 80053; 80202; 81001; 82140; 82565; 82607; 82668; 82728; 82746; 82805; 82962; 83010; 83036; 83540; 83550; 83605; 83615; 83735; 83880; 84100; 84132; 84436; 84439; 84443; 84481; 84484; 85025; 85045; 85379; 85610; 85652; 85730; 86141; 86225; 86235; 87040; 87070; 87081; 87086; 87205; 87449; 87804; 87880; 92610; 93005; 93306; 93970; 94002; 94003; 94640; 96365; 96367; 96368; 96372; 96375; 97110; 97530; C9113; G0378; J0171; J0330; J0696; J1450; J2001; J2185; J2248; J2250; J2405; J2543; J2704; J3480; J7060